=== PATIENT | female | born 1975 | race Caucasian/White ===

== ENCOUNTER 2020-01-30 14:10 | Emergency (ER) | payer OTHER, SELFPAY ==
--- NOTE | ~2020-01-30 | XR_ITS ---
EXAMINATION: XR hip RT min 2V DATE: 01/30/2020 15:15 INDICATION: Right hip pain. TECHNIQUE: 2 views of right hip were obtained. COMPARISON: None. FINDINGS: Bone alignment is normal. No fracture. There is mild right hip osteoarthritis. There is an intrauterine device in expected position. IMPRESSION: 1. Mild right hip osteoarthritis. Reviewed, dictated and finalized at location A.
[2020-01-30 14:24] VITALS: BP 167/108; PULSE 99; RESP 20; TEMP 36.8; O2SAT 100
--- NOTE | 2020-01-30 14:45 | ED.EXTPRO ---
HPI - Extremity Problem General Chief complaint: Extremity Injury, Lower Stated complaint: right side hip pain Time Seen by Provider: 01/30/20 14:12 Source: patient and RN notes reviewed Mode of arrival: ambulatory Limitations: no limitations History of Present Illness HPI Narrative: Patient states she has been having some right hip pain for 5 days. She does not recall any trauma. Hurts when she does range of motion on the lateral greater trochanter and her right groin and right greater ischial tuberosity. She denies any fever chills. She denies any other symptoms. She does not recall any abnormal strain. Complaint: extremity pain Onset (ago): month(s) (1) Pain Consistency: intermittent Location: right and lower extremity (Hip) Quality: aching and dull Radiation: distal Relieving factors: nothing Exacerbating factors: range of motion and walking Associated symptoms: denies other symptoms Related Data Home Medications Medication Instructions Recorded Confirmed levothyroxine 100 mcg PO DAILY 01/30/20 01/30/20 Allergies Allergy/AdvReac Type Severity Reaction Status Date / Time No Known Allergies Allergy Verified 01/30/20 14:33 Review of Systems Review of Systems: All systems reviewed & are unremarkable except as noted in HPI and below PMFSH Past Medical History Medical History (Updated 01/30/20 @ 15:57 by Lenard Lopez MD) Depression Hypothyroid Surgical History Surgical History (Updated 04/06/19 @ 23:14 by Bk Hung) No history of previous surgery Social History Social History (Updated 04/06/19 @ 23:14 by Bk Hung) Smoking status: Current every day smoker Additional smoking assessment comments: Pt smokes less than 1 PPD. Gender identity (if verbalized by the patient): Female Exam Const: General: healthy appearing, no acute distress and alert Nutritional Appearance: well nourished Orientation/consciousness: patient oriented x3 Other: Female nurse in room during examination. HENMT: Head: normal to inspection Ears: external ears normal General nose exam: Normal external nose present Face and sinus: normal facial exam Mouth: Yes lip normal and Yes moist mucous membranes Eyes: Conjunctivae: conjunctivae normal Pupils: Equal, round and reactive pupils present EOM: EOMs intact bilaterally Neck: Neck: normal visual inspection Resp: Effort & Inspection: normal respiratory effort Auscultation: clear to auscultation bilaterally Cardio: Rate: regular rate Rhythm: regular rhythm GI: GI Palp: Yes Soft to palpation and No Tenderness to palpation present (GI) Auscultation: normal bowel sounds Back/Spine/Pelvis: Cervical Spine: cervical ROM normal Thoracic/Lumbar Spine: thoraco-lumbar ROM normal Skin: General skin exam: normal color Rashes: no rashes Neuro: General: oriented to person, oriented to place, oriented to time, moves all extremities, Normal light touch and pain sensation, no focal motor deficits and CN's II-XI intact bilaterally Cranial nerves: Yes Facial sensation intact/muscles of mastication intact, Yes Equal, round and reactive pupils present, Yes Bilaterally intact EOM present, Yes Nystagmus not present, Yes Normal facial strength present, Yes facial symmetry, Yes Midline tongue present, Yes Normal hearing present and Yes Ability to bilaterally elevate shoulders present Speech: normal speech Gait exam (Neuro): Unable to assess gait Motor exam (neuro): 5/5 motor strength present throughout, Pronator motor function not present, Normal motor muscle tone present throughout and Motor abnormalities not present Sensory Exam: normal sensation Coordination: [id number] test normal Pupils: Normal pupillary reactivity/response: bilateral Extrem: General: normal to inspection, no clubbing, cyanosis or edema and no pedal edema Psych: Appearance: grossly normal and well kempt Mental Status: mental status grossly normal Affect: normal affect Attitude: coop
--- NOTE | 2020-01-30 14:50 | PC.NURSE ---
[id number] RN in room with doctor for exam
[2020-01-30 15:14] LABS: Basophils Absolute Auto 0.02 K/mm3 (0.00-0.10); Basophils Percent Auto 0.3 % (0.0-1.0); Eosinophils Absolute Auto 0.12 K/mm3 (0.02-0.50); Eosinophils Percent Auto 1.8 % (1.0-6.0); Hematocrit 40.4 % (35.0-49.0); Hemoglobin 12.8 g/dL (12.0-15.0); Immature Granulocyte Absolute 0.02 K/mm3 (0.00-0.00); Immature Granulocyte Percent A 0.3 % (0.0-0.0); Lymphocytes Absolute Auto 1.52 K/mm3 (1.10-4.50); Lymphocytes Percent Auto 23.2 % (18.0-42.0); Mean Corpuscular HGB Conc 31.7 g/dL (32.0-36.0); Mean Corpuscular Hemoglobin 31.2 pg (27.0-31.0); Mean Corpuscular Volume 98.5 fL (78.0-102.0); Mean Platelet Volume 9.2 fl (9.2-11.8); Monocytes Absolute Auto 0.69 K/mm3 (0.10-0.90); Monocytes Percent Auto 10.6 % (2.0-11.0); Neutrophils Absolute Auto 4.2 K/mm3 (1.7-7.2); Neutrophils Percent Auto 63.8 % (50.0-70.0); Platelet Count Result 356 K/mm3 (150-420); Red Cell Distribution Width 12.2 % (11.6-14.4); White Blood Count 6.5 K/mm3 (4.8-10.8)
[2020-01-30 15:26] LABS: CRP 3.7 mg/dL (0.0-0.9)
[2020-01-30] MEDS: KETOROLAC (*BKC) 60 MG/2 ML VIAL IM (15:57)
[2020-01-30 16:30] VITALS: BP 177/105; PULSE 82; RESP 20; O2SAT 97
== END 2020-01-30 16:31 | disposition home or self-care (01) ==
PROVIDERS: Emergency Provider Emergency Medicine; PCP Family Medicine
DX: M16.7 Other unilateral secondary osteoarthritis of hip (principal)
CPT/HCPCS: 36415; 73502; 85025; 86140; 96372; 99283; J1885

== ENCOUNTER 2020-02-06 20:24 | Emergency (ER) | payer OTHER, SELFPAY ==
[2020-02-06 20:40] VITALS: BP 190/111; PULSE 106; RESP 18; TEMP 36.9; O2SAT 98
--- NOTE | 2020-02-06 21:51 | ED.EYEPROB ---
HPI - Eye Problem General Chief complaint: Eye Problems Stated complaint: eye problems Source: patient Mode of arrival: ambulatory History of Present Illness HPI Narrative: this is a 44-year-old female presents with red itchy eyes bilateral with some redness discharge irritation with itching, started couple of days ago and has intensified, also having rash that is itchy around her forehead and into her neck and lower back area that is some red itchy with no fever chills no shortness of breath no nausea vomiting or abdominal pain. The patient states that she was recently seen at an urgent care and treated with permethrin for with some they thought might have been scabies, and treated the whole family. Does not appear to be scabies, of the area looks red and irritated. Patient also states that she had a dog that was diagnosed with mange and was giving the dog a bath and believes that this may have been the source of her inflammation and source of infected itchy red warm watery eyes. chief complaint: eye pain Onset (ago): day(s) Onset description: gradual Duration: constant Location: both eyes Eye Symptoms: burning, redness, foreign body sensation, itching and discharge Place: home Mechanism: other ( Coming in contact with her dog) Severity: moderate If Pain, Quality: burning Associated symptoms: other ( rash with itching) Treatments Prior to Arrival: none Related Data Home Medications Medication Instructions Recorded Confirmed levothyroxine 100 mcg PO DAILY 01/30/20 02/06/20 Allergies Allergy/AdvReac Type Severity Reaction Status Date / Time No Known Allergies Allergy Verified 01/30/20 14:33 Review of Systems Review of Systems: All systems reviewed & are unremarkable except as noted in HPI and below PMFSH Past Medical History Medical History Depression Hypothyroid Surgical History Surgical History No history of previous surgery Social History Social History Smoking status: Current every day smoker Additional smoking assessment comments: Pt smokes less than 1 PPD. Gender identity (if verbalized by the patient): Female Exam Const: General: healthy appearing and no acute distress Orientation/consciousness: patient oriented x3 HENMT: Head: normal to inspection Eyes: Conjunctivae: conjunctival abnormality ( red irritated with some discharge bilateral) bilateral Pupils: Equal, round and reactive pupils present Neck: Neck: normal visual inspection and no lymphadenopathy Chest: Chest palpation & inspection: normal inspection of the chest Resp: Effort & Inspection: normal respiratory effort Auscultation: clear to auscultation bilaterally Cardio: Rate: regular rate Rhythm: regular rhythm : General: Yes no CVA tenderness Back/Spine/Pelvis: Back: no CVA tenderness Skin: General skin exam: normal color Rashes: no rashes Neuro: General: patient oriented x3 and moves all extremities Extrem: General: normal to inspection and no pedal edema Psych: Appearance: grossly normal Mental Status: mental status grossly normal Affect: normal affect Course Course Emergency Course: patient having what appears to be an allergic reaction with redness erythema and itching and itching eyes with redness, administer a dose of Depo-Medrol and instill in her eyes cord Spore in eyedrops. Critical Care Time Critical Care Time Critical Care Time: No Discharge Plan Discharge Clinical Impression: Bacterial conjunctivitis, Dermatitis Patient Disposition: Home, Self-Care Condition: Stable Instructions: Antibiotic Form, Contact Dermatitis (ED), Conjunctivitis (ED) Additional Instructions: take medicine as prescribed and follow-up on his care physician if symptoms persist or worsen. Prescriptions: New methylprednisolone [Medr
[2020-02-06] MEDS: NEOMYCIN/POLYMYXIN/DEXAMETH OP SUSP 5 ML BTL 1 DROP EACH EYE (22:16)
[2020-02-06] MEDS: methylPREDNISolone ACETATE 40 MG/ML VIAL 80 MG IM (22:16)
[2020-02-06 22:34] VITALS: BP 188/110; PULSE 92
[2020-02-06] MEDS: cloNIDine HCL 0.1 MG TABLET 0.2 MG PO (22:38)
[2020-02-06 23:19] VITALS: BP 166/100; PULSE 82; RESP 20; TEMP 36.6; O2SAT 98
== END 2020-02-06 23:25 | disposition home or self-care (01) ==
PROVIDERS: Emergency Provider Emergency Medicine; PCP Family Medicine
DX: H10.89 Other conjunctivitis (principal); L30.9 Dermatitis, unspecified
CPT/HCPCS: 96372; 99283; A9270; J1030

== ENCOUNTER 2020-10-28 15:21 | Emergency (ER) | payer OTHER, SELFPAY ==
--- NOTE | ~2020-10-28 | XR_ITS ---
EXAMINATION: XR hip RT 2V w AP pelvis DATE: 10/28/2020 16:02 INDICATION: Right hip pain post fall TECHNIQUE: Anteroposterior view of the pelvis and anteroposterior and frog-leg lateral views of the r ight hip were obtained. COMPARISON: 01/30/2020 FINDINGS: Alignment is normal. No fracture. There is patchy sclerosis and lucency at the bilateral femoral head s which is suspicious for osteonecrosis. Mild osteoarthritis at the bilateral hip joints. Bilateral s acroiliac joint spaces are relatively preserved. Multiple phleboliths in the pelvis. IMPRESSION: 1. Patchy sclerosis and lucency at the bilateral femoral heads most suggestive of osteonecrosis. No o ther acute osseous abnormality. Reviewed, dictated and finalized at location A. IMPRESSION: 1. Patchy sclerosis and lucency at the bilateral femoral heads most suggestive of osteonecrosis. No other acute osseous abnormality.
--- NOTE | ~2020-10-28 | CT_ITS ---
EXAMINATION: CT hip RT wo con DATE: 10/28/2020 17:48 INDICATION: Right hip pain TECHNIQUE: High resolution computed tomography (CT) of the right hip was performed without intravenou s contrast. Additional sagittal and coronal reconstructions were performed. Automated exposure contro l and iterative reconstruction technique were employed. The dose-length product was 143.12 mGy-cm. COMPARISON: None FINDINGS: There is increased lucency of the bone at the anterior aspect of the femoral head with serpiginous th in sclerotic margin consistent with osteonecrosis. This involves the majority of the anterior half of the articular surface of the femoral head with likely early fragmentation and subtle collapse of the articular surface of the affected bone. This results in approximately 1-2 mm step-off at the articul ar surface at the apex of the femoral head. There is additional small region of osteonecrosis without collapse along the posterior medial aspect of the articular surface of the femoral head. The right f emoral head remains normally located in the right acetabulum with mild osteoarthritis at the right hi p. Aside from the fragmentation at the right femoral head there are no other fractures identified. Th ere is a large right hip joint effusion. Normal appendix. Visualized portions of the bowels, bladder, anteverted uterus and right adnexa are unremarkable. IMPRESSION: 1. Relatively advanced osteonecrosis of the right femoral head which appears to involve at least half of the articular surface area with early fragmentation and subtle collapse of the anterior articular surface. 2. Mild likely secondary osteoarthritis of the right hip with large likely reactive joint effusion. Reviewed, dictated and finalized at location A. IMPRESSION: 1. Relatively advanced osteonecrosis of the right femoral head which appears to involve at least half of the articular surface area with early fragmentation a nd subtle collapse of the anterior articular surface. 2. Mild likely secondary osteoarthritis of the right hip with large likely reac tive joint effusion.
[2020-10-28 15:19] VITALS: BP 155/95; PULSE 76; RESP 20; TEMP 36.5; O2SAT 99
[2020-10-28 16:37] VITALS: BP 137/96; PULSE 65; RESP 18; O2SAT 99
--- NOTE | 2020-10-28 16:57 | ED.FALL ---
HPI - Fall General Chief Complaint: Fall Stated Complaint: right hip pain post fall Time Seen by Provider: 10/28/20 15:24 History of Present Illness HPI Narrative: Patient is a 45-year-old female who presents ER with right hip pain. Patient was walking her house and tripped over singular step falling onto her right side. Did not strike head or lose consciousness. She had sudden onset pain in her hip. She has been unable to ambulate since then. No numbness or tingling. Related Data Allergies Allergy/AdvReac Type Severity Reaction Status Date / Time No Known Allergies Allergy Verified 10/28/20 15:27 Review of Systems Review of Systems: All systems reviewed & are unremarkable except as noted in HPI and below Constitutional: Constitutional: Denies chills, Denies fever(s) and Denies weakness Musculoskeletal: Musculoskeletal: Reports arthralgias, Denies joint swelling and Denies muscle cramps Neurologic: Denies focal weakness and Denies numbness PMFSH Past Medical History Medical History (Updated 10/28/20 @ 18:24 by Kermit Cole MD) Depression Hypothyroid Surgical History Surgical History No history of previous surgery Social History Social History Smoking status: Current every day smoker Additional smoking assessment comments: Pt smokes less than 1 PPD. Gender identity (if verbalized by the patient): Female Exam Narrative: Exam Narrative: GENERAL: Well-appearing, well-nourished, and in no acute distress. HEAD: Normocephalic, atraumatic. CHEST: Clear to auscultation. No respiratory distress. HEART: Regular rate and rhythm. Normal peripheral pulses. EXTREMITIES: Focused exam of the right lower extremity shows reduced range of motion in the right hip and patient can only keep her leg straight out due to pain. No swelling. No real tenderness to palpation. Neurovascular intact distal to the right hip. Normal exam left lower extremity and bilateral upper extremities. SKIN: Warm, dry, no rash. NEURO: Alert and oriented x3. PSYCH: Normal mood and affect. Course Reevaluation(s) Reevaluation #1: Discussed CT and x-ray results with Dr. Priest. Recommends patient go home and follow-up in office and she can be worked up for potential hip replacement outpatient. Does not feel like the subtle collapse of the femoral head represents acute fracture. He feels patient would benefit from Medrol Dosepak and other pain therapy. Patient will also be given crutches to help with ambulation. Date: 10/28/20 Time: 18:21 Vital Signs Vital signs: Vital Signs Temperature 97.7 F 10/28/20 15:19 Pulse Rate 76 10/28/20 15:19 Respiratory Rate 20 10/28/20 15:19 Blood Pressure 155/95 H 10/28/20 15:19 Pulse Oximetry 99 10/28/20 15:19 Temperature 97.7 F 10/28/20 15:19 Pulse Rate 67 10/28/20 18:35 Respiratory Rate 18 10/28/20 18:35 Blood Pressure 129/90 10/28/20 18:35 Pulse Oximetry 100 10/28/20 18:35 MDM - Fall Imaging Data Radiologist's impression: ITS Impressions Hip/Pelvis X-Ray 10/28/20 16:04 IMPRESSION: 1. Patchy sclerosis and lucency at the bilateral femoral heads most suggestive of osteonecrosis. No other acute osseous abnormality. Hip CT 10/28/20 17:51 IMPRESSION: 1. Relatively advanced osteonecrosis of the right femoral head which appears to involve at least half of the articular surface area with early fragmentation and subtle collapse of the anterior articular surface. 2. Mild likely secondary osteoarthritis of the right hip with large likely reactive joint effusion. Discharge Plan Discharge Clinical Impression: Avascular necrosis of bones of both hips Patient Disposition: Home, Self-Care Condition: Stable Instructions: Hip Pain (ED) Additional Instructions: You have avascular necrosis of both of the femoral heads of you
--- NOTE | 2020-10-28 17:04 | PC.NURSE ---
Attempted to bear weight on right foot, unable to at this time. Dr. Cole notified and new orders received. Updated patient.
[2020-10-28] MEDS: KETOROLAC 30 MG/ML VIAL (*BKC) IV PUSH (18:33)
[2020-10-28 18:35] VITALS: BP 129/90; PULSE 67; RESP 18; O2SAT 100
== END 2020-10-28 18:53 | disposition home or self-care (01) ==
PROVIDERS: Emergency Provider Emergency Medicine; PCP Family Medicine
DX: M87.9 Osteonecrosis, unspecified (principal); E03.9 Hypothyroidism, unspecified; F17.200 Nicotine dependence, unspecified, uncomplicated; F17.210 Nicotine dependence, cigarettes, uncomplicated; W10.9XXA Fall (on) (from) unspecified stairs and steps, initial encounter
CPT/HCPCS: 73502; 73700; 96374; 99284; J1885

== ENCOUNTER 2021-03-02 10:33 | Emergency (ER) | payer OTHER, SELFPAY ==
--- NOTE | ~2021-03-02 | CT_ITS ---
EXAMINATION: CT BRAIN W/O DATE: 03/02/2021 11:32 INDICATION: Headache after injury TECHNIQUE: Computed tomography (CT) of the head was performed without intravenous contrast. The dose- length product was 605.33 mGy-cm. COMPARISON: No prior studies for comparison. FINDINGS: Normal brain parenchymal volume for age. Normal naqvi-white differentiation. No acute intrac ranial hemorrhage, infarction, mass or mass effect. No ventriculomegaly or midline shift. Midline sagittal images demonstrate a normal corpus callosum, c raniovertebral junction and sella turcica. Basilar cisterns are patent. Paranasal sinuses and mastoids are pneumatized. No depressed skull fractures. IMPRESSION: 1. No acute intracranial abnormality. Reviewed, dictated and finalized at location A.
--- NOTE | ~2021-03-02 | XR_ITS ---
XR hip RT min 3V w AP pelvis 03/02/2021 12:52 Indication: Right hip pain after fall Procedure: AP pelvis and 3 views right hip Comparison: 11/26/2020 Findings: There is mixed lysis and sclerosis of the femoral heads, consistent with avascular necrosis with probable subchondral fracture of the right femoral head medially. There is right hip joint spac e narrowing superiorly. Pelvic rings are intact. Sacral foramen are symmetric. Impression: 1: Bilateral avascular necrosis of the femoral heads, right greater than left. Probable associated reed bchondral fracture of the right femoral head. Reviewed, dictated and finalized at location A. Impression: 1: Bilateral avascular necrosis of the femoral heads, right greater than left. Probable associated subchondral fracture of the right femoral head.
--- NOTE | ~2021-03-02 | CT_ITS ---
EXAMINATION: CT facial & cervical spine wo DATE: 03/02/2021 11:32 INDICATION: Head and neck injury post fall TECHNIQUE: Computed tomography (CT) of the maxillofacial region and cervical spine was performed with out intravenous contrast. The dose-length product was 224.70 mGy-cm. Automated exposure control and i terative reconstruction technique were employed. COMPARISON: None FINDINGS: MAXILLOFACIAL CT: No acute facial fracture. No significant soft tissue abnormality. Paranasal sinuses are unremarkable. No orbital fractures. CERVICAL SPINE CT: Straightening of cervical lordosis. Vertebral body heights are maintained. No acute fracture, subluxa tion or dislocation. No evidence for perched facet. Lung apices are normal. No paraspinal soft tissue abnormality. IMPRESSION: 1. No acute abnormality of the facial bones or cervical spine. Reviewed, dictated and finalized at location A.
[2021-03-02 10:31] VITALS: PULSE 98; RESP 18; TEMP 36.8; O2SAT 100
[2021-03-02 10:41] VITALS: BP 158/90
--- NOTE | 2021-03-02 11:18 | ED.WOUNDLAC ---
HPI - Wound/Laceration General Chief Complaint: Wound/Laceration <Amy Cedeño PA-C - Last Filed: 03/02/21 13:53> Stated Complaint: CHIN LAC <TELMA Suarez Last Filed: 03/02/21 13:53> Time Seen by Provider: 03/02/21 10:39 <TELMA Suarez Last Filed: 03/02/21 13:53> Source: patient <TELMA Suarez Last Filed: 03/02/21 13:53> Mode of arrival: EMS <TELMA Suarez Last Filed: 03/02/21 13:53> Limitations: no limitations <TELMA Suarez Last Filed: 03/02/21 13:53> History of Present Illness HPI narrative: This is a 45-year-old female that presents to the emergency department after a ground-level fall today with a laceration to the chin. Reportedly patient was being served a warrant. She tried to run away and tripped and fell. She hit her chin on the floor. Denies any loss of consciousness. Reports a laceration to the chin. She is unsure of her last tetanus vaccination. Also reports some pain in her right hip that does seem to be chronic, but has worsened since the fall. Denies vision changes, vomiting, numbness, or weakness. <Amy Cedeño PA-C - Last Filed: 03/02/21 13:53> Related Data Home Medications: Home Medications Medication Instructions Recorded Confirmed No Home Medications 03/02/21 03/02/21 <TELMA Suarez Last Filed: 03/02/21 13:53> Allergies/Adverse Reactions: Allergies Allergy/AdvReac Type Severity Reaction Status Date / Time No Known Allergies Allergy Unverified 03/02/21 10:35 <TELMA Suarez Last Filed: 03/02/21 13:53> Review of Systems Review of Systems: CONSTITUTIONAL: Denies fever EYES: Denies visual changes GASTROINTESTINAL: Denies vomiting MUSCULOSKELETAL: Reports joint pain and myalgia. Denies back pain NEUROLOGIC: Denies headache, numbness, or weakness. <Amy Cedeño PA-C - Last Filed: 03/02/21 13:53> All systems reviewed & are unremarkable except as noted in HPI and below <Amy Cedeño PA-C - Last Filed: 03/02/21 13:53> PMFSH Past Medical History Medical History: Medical History (Updated 03/02/21 @ 13:46 by Amy Cedeño PA-C) Depression Hypothyroid <Amy Cedeño PA-C - Last Filed: 03/02/21 13:53> Surgical History Surgical History: Surgical History No history of previous surgery <Amy Cedeño PA-C - Last Filed: 03/02/21 13:53> Social History Social History: Social History (Updated 11/26/20 @ 09:40 by Elenita Monahan MA) Smoking status: Current every day smoker Additional smoking assessment comments: Pt smokes less than 1 PPD. Gender identity (if verbalized by the patient): Female <Amy Cedeño PA-C - Last Filed: 03/02/21 13:53> Exam Narrative: GENERAL: Well-appearing, well-nourished, and in no acute distress. HEAD: Normocephalic. 2cm linear laceration into subcutaneous tissue to the chin EYES: PERRLA and EOMI. ENT: Nares clear, no rhinorrhea or epistaxis. Mucous membranes moist. Oropharynx without tonsillar hypertrophy exudate or other lesions. Bilateral TMs pearly naqvi non-bulging NECK: Supple. No adenopathy or masses. CHEST: Clear to auscultation. No respiratory distress. No wheezes rales or rhonchi HEART: Regular rate and rhythm. No murmur heard. Normal peripheral pulses. BACK: No midline thoracic or lumbar spine tenderness EXTREMITIES: Normal range of motion. No edema or obvious deformity. Strength equal in bilateral upper and lower extremities SKIN: Warm, dry, no rash. NEURO: No focal deficits. Alert and oriented x3. Cranial nerves II through XII grossly intact PSYCH: Normal mood and affect <Amy Cedeño PA-C - Last Filed: 03/02/21 13:53> Course COMMUNICATIONS DEPARTMENT CHAIR/PA Physician Supervision I did not see this patient nor was the care plan discussed with me. I was available for evaluation and consultation, I agree with the documentation as above <Jaime
[2021-03-02] MEDS: TETANUS,DIPHTHERIA,AC PERTUSSIS ADULT (0.5 ML) BOOSTRIX IM (11:45)
[2021-03-02] MEDS: KETOROLAC (*BKC) 60 MG/2 ML VIAL IM (14:00)
--- NOTE | 2021-03-02 14:32 | PC.NURSE ---
Attempted to give crutches and training to patient. Refused need for crutches. Denies education. Charge nurse made aware of this. Nothing further to report.
== END 2021-03-02 14:34 ==
PROVIDERS: Emergency Provider Emergency Medicine; PCP Family Medicine
DX: S01.81XA Laceration without foreign body of other part of head, initial encounter (principal); M87.9 Osteonecrosis, unspecified; Z23 Encounter for immunization; E03.9 Hypothyroidism, unspecified; F17.210 Nicotine dependence, cigarettes, uncomplicated; W01.0XXA Fall on same level from slipping, tripping and stumbling without subsequent striking against object, initial encounter
CPT/HCPCS: 12011; 70450; 70486; 72125; 73502; 81025; 90471; 90715; 96372; 99284; J1885

== ENCOUNTER 2021-03-26 11:02 | Outpatient (CLI) | payer OTHER, SELFPAY ==
--- NOTE | ~2021-03-26 | XR_ITS ---
EXAMINATION: XR lg joint inject/asp w image DATE: 03/26/2021 11:50 INDICATION: Right hip arthritis. TECHNIQUE: A time-out was performed to verify the patient's name, date of , and procedure to b e performed. The procedure including the risks, benefits, and alternatives was discussed with the pat ient. Risks discussed included bleeding and infection. The patient understood the risks and agreed to proceed. The skin overlying the right hip joint was prepped and draped in usual sterile fashion. A nesthetic was administered with 1% lidocaine subcutaneously. A 22 G needle was advanced under fluoro scopic guidance into the joint. Injection of 1 mL of Omnipaque 240 confirmed intra-articular positio n of the needle. Subsequently, injectate consisting of 2 mL 0.5% bupivacaine and 1 mL 80 mg/mL Depo- Medrol was instilled. The needle was removed and the entry site was cleaned and dressed. There were no immediate complications. Fluoroscopy exposure time was 0.1 minutes. The total number of images wa s 2. FINDINGS: Real-time fluoroscopy demonstrates the needle in the right hip joint. Patient's pain prior to procedure:11/24. Patient's pain following the procedure: 05/27. IMPRESSION: 1. Fluoroscopy guided right hip joint injection of local anesthetic and steroid with decrease in the patient's presenting pain. Reviewed, dictated and finalized at location A. [employer] [facility]
== END 2021-03-26 11:03 | disposition home or self-care (01) ==
LOC: ANHIMG 11:06
PROVIDERS: PCP Family Medicine; Visit Provider Orthopaedic Surgery
DX: M16.11 Unilateral primary osteoarthritis, right hip (principal)
CPT/HCPCS: 20610; 77002; J1040; Q9966

== ENCOUNTER 2021-07-05 11:53 | Emergency (ER) | payer OTHER, SELFPAY ==
--- NOTE | ~2021-07-05 | XR_ITS ---
XR hip RT min 3V w AP pelvis DATE: 07/05/2021 12:48 INDICATION: Fall. Right hip injury, pain TECHNIQUE: AP pelvis. AP, lateral and crosstable lateral views of right hip COMPARISON: 03/02/2021 AP pelvis with right hip FINDINGS: Again noted is bilateral femoral head avascular necrosis, right considerably more severe th an left. There is secondary right hip osteoarthritis. No pelvic fracture or bone destruction. Normal alignment at the pubic symphysis and sacroiliac joint s. IMPRESSION: Bilateral femoral head avascular necrosis, right greater than left, with secondary right hip osteoarthritis Reviewed, dictated and finalized at location B. AR TRIMMER
[2021-07-05 12:09] VITALS: BP 170/104; PULSE 67; RESP 16; TEMP 36.3; O2SAT 97
[2021-07-05] MEDS: IBUPROFEN 600 MG TABLET PO (12:27)
--- NOTE | 2021-07-05 13:47 | ED.EXTPRO ---
HPI - Extremity Problem General Chief complaint: Extremity Problem,Nontraumatic Stated complaint: right hip pain Time Seen by Provider: 07/05/21 12:11 Source: patient History of Present Illness HPI Narrative: Patient presents with right hip pain. She has known avascular necrosis with definitive surgery scheduled for next month. She came in today for worsening pain she fell a couple days ago on ice landing on her right hip. Attempted manage her symptoms at home however pain increases she came to the ER for evaluation. Pain is achy, constant, radiates down her leg worse with attempting to move her right hip. Shot striking her head any loss of conscious denies any focal numbness or weakness Related Data Home Medications Medication Instructions Recorded Confirmed acetaminophen 500 mg PO Q6H PRN 06/21/21 06/21/21 albuterol sulfate 2 inh INHALATION Q4-6M PRN 06/21/21 06/21/21 fluoxetine 40 mg PO QAM 06/21/21 06/21/21 folic acid 1 mg PO DAILY 06/21/21 06/21/21 hydroxyzine HCl 25 mg PO DAILY 06/21/21 06/21/21 levothyroxine 88 mcg PO QAM 06/21/21 06/21/21 levothyroxine 100 mcg PO QAM 06/21/21 06/21/21 tramadol 50 mg tablet 50 mg PO Q6H PRN 06/27/21 Allergies Allergy/AdvReac Type Severity Reaction Status Date / Time No Known Allergies Allergy Unverified 06/21/21 12:21 Review of Systems Review of Systems: CONSTITUTIONAL: Denies fever, chills, or sweats. EYES: Denies visual changes, redness, or discharge. ENT: Denies rhinorrhea, congestion, sore throat, or otalgia. CARDIOVASCULAR: Denies chest pain, palpitations, or edema. RESPIRATORY: Denies cough or dyspnea. GASTROINTESTINAL: Denies abdominal pain, nausea, vomiting, or diarrhea. GENITOURINARY: Denies dysuria or hematuria. SKIN: Denies rash or itching. MUSCULOSKELETAL: Denies back pain, or myalgia. NEUROLOGIC: Denies headache, numbness, dizziness, or weakness. PSYCHIATRIC: Denies anxiety or depression. All systems reviewed & are unremarkable except as noted in HPI and below PMFSH Past Medical History Medical History (Updated 07/05/21 @ 13:54 by Nick Foote MD) Depression Hypothyroid Surgical History Surgical History No history of previous surgery Social History Social History Smoking packs per day: 1 Smoking cigarettes per day: 20.0 Years smoked: 12 Smoking pack-years: 12.00 Smoking status: Former smoker Tobacco type: cigarettes and e-cigarettes/vaping Additional smoking assessment comments: STOPPED VAPING 06/16/21,STOPPED CIGARETTES 06/16/21(HAD DECREASED TO FEW) Alcohol intake: current Drinks per week: 2 Substance use: former Substance use type: methamphetamine Last use: 2019 Gender identity (if verbalized by the patient): Female Spiritual care concerns: No Exam Narrative: GENERAL: Well-appearing, well-nourished, and in no acute distress. HEAD: Normocephalic, atraumatic. EYES: PERRLA and EOMI. ENT: Nares clear, no rhinorrhea or epistaxis. Mucous membranes moist. NECK: Supple. No masses. No JVD EXTREMITIES: Ecchymosis noted on the posterior aspect of the right hip there is diffuse tenderness to the right hip no obvious deformity no open or draining wounds SKIN: Warm, dry, no rash. NEURO: No focal deficits. Alert and oriented x3. PSYCH: Normal mood and affect. Course Vital Signs Vital signs: Vital Signs Temperature 36.3 C L 07/05/21 12:09 Pulse Rate 67 07/05/21 12:09 Respiratory Rate 16 07/05/21 12:09 Blood Pressure 170/104 H 07/05/21 12:09 Pulse Oximetry 97 07/05/21 12:09 Temperature 36.3 C L 07/05/21 12:09 Pulse Rate 73 07/05/21 14:01 Respiratory Rate 18 07/05/21 14:01 Blood Pressure 170/89 H 07/05/21 14:01 Pulse Oximetry 100 07/05/21 14:01 MDM - Extremity (Nontraumatic) MDM Narrative Medical decision making narrative: H&P as above, vss, pt looks clinically well, exam
[2021-07-05 14:01] VITALS: BP 170/89; PULSE 73; RESP 18; O2SAT 100
== END 2021-07-05 14:04 | disposition home or self-care (01) ==
PROVIDERS: Emergency Provider Emergency Medicine; PCP Family Medicine
DX: M25.551 Pain in right hip (principal); M87.9 Osteonecrosis, unspecified; E03.9 Hypothyroidism, unspecified; F32.A Depression, unspecified; Z87.891 Personal history of nicotine dependence; M16.7 Other unilateral secondary osteoarthritis of hip; W00.0XXA Fall on same level due to ice and snow, initial encounter
CPT/HCPCS: 73502; 99283; A9270

== ENCOUNTER 2021-07-22 08:05 | Outpatient (CLI) | payer OTHER, SELFPAY ==
--- NOTE | 2021-07-22 09:13 | ECG_ITS ---
Measurements Intervals [place] Rate: 61 P: 51 TX: 122 QRS: 68 QRSD: 79 T: 49 QT: 408 QTc: 413 Interpretive Statements SINUS RHYTHM MODERATE T-WAVE ABNORMALITY, CONSIDER ANTERIOR ISCHEMIA [-0.1+ mV T WAVE IN V3/V4] COMPARED TO ECG 10/16/2018 15:48:20 ANTEROSEPTAL T-WAVE INVERSION IS NOW PRESENT Electronically Signed On 07-22-2021 15:42:18 MOLD BURNER by Richard Olivera M.D.
[2021-07-22 09:48] LABS: Basophils Absolute Auto 0.1 K/mm3 (0.0-0.1); Basophils Percent Auto 0.7 % (0.2-1.2); Eosinophils Absolute Auto 0.2 K/mm3 (0-0.3); Eosinophils Percent Auto 2.5 % (0-4.4); Hematocrit 43.7 % (37.0-47.0); Immature Granulocyte Absolute 0.02 K/mm3 (0.00-0.031); Immature Granulocyte Percent A 0.3 % (0-0.5); Lymphocytes Absolute Auto 1.39 K/mm3 (0.9-3.2); Lymphocytes Percent Auto 18.2 % (18.3-44.2); Mean Corpuscular Hemoglobin 31.2 pg (26-34); Mean Corpuscular Volume 97.3 fl (80-100); Mean Platelet Volume 9.4 fl (7.4-10.4); Monocytes Absolute Auto 0.8 K/mm3 (0.1-0.6); Monocytes Percent Auto 10.4 % (2.6-8.5); Neutrophils Absolute Auto 5.2 K/mm3 (1.3-6.7); Neutrophils Percent Auto 67.9 % (45.5-73.1); Platelet Count Result 287 k/mm3 (150-375); Red Blood Count 4.49 M/mm3 (4.2-5.4); Red Cell Distribution Width 14.2 % (11.5-14.5); White Blood Count 7.6 K/mm3 (4.5-10.0)
[2021-07-22 09:53] LABS: Urine Cotinine NEGATIVE
[2021-07-22 09:56] LABS: Add Urine Microscopic? YES; Amorphous Sediment Urine Few; Appearance Urine Cloudy (Clear); Bilirubin Urine Negative (Negative); Blood Urine Negative (Negative); Color Urine Yellow (Yellow); Glucose Urine UA Negative (Negative); Ketones Urine Negative (Negative); Leukocyte Esterase Ur 2+ LEU/UL (Negative); Mucus Urine Rare /lpf; Nitrate Urine Negative (Negative); Protein Urine Negative (Negative); Specific Grav Ur 1.019 (1.001-1.035); Squamous Epithelial Cell Urine Many /hpf (Few); Urobilinogen Urine Negative mg/dL (<2.0); WBC Urine 16-20 /hpf
[2021-07-22 09:57] LABS: INR 0.9; Prothrombin Time 12.1 Seconds (11.1-14.7)
[2021-07-22 09:58] LABS: Partial Thromboplastin Time < 20.0 SECONDS (22.3-36.8)
[2021-07-22 10:11] LABS: Hemoglobin A1C 4.9 % (<5.7)
[2021-07-22 12:55] LABS: Albumin Level 3.9 g/dL (3.5-5.1); Anion Gap 4 mmol/L (8-16); Blood Urea Nitrogen 18 mg/dL (7-17); Calcium 8.9 mg/dL (8.4-10.2); Carbon Dioxide 26 mmol/L (22-30); Chloride 103 mmol/L (98-107); Estimated Glomerular Filt Rate > 60; Glucose 86 mg/dL (65-110); Potassium 5.1 mmol/L (3.4-5.0); Sodium 133 mmol/L (137-145)
== END 2021-07-22 08:06 | disposition home or self-care (01) ==
LOC: ANHSURGERY 08:08
PROVIDERS: PCP Family Medicine; Visit Provider Orthopaedic Surgery
DX: Z01.818 Encounter for other preprocedural examination (principal); M87.059 Idiopathic aseptic necrosis of unspecified femur; R94.31 Abnormal electrocardiogram [ECG] [EKG]
CPT/HCPCS: 80048; 80307; 81001; 82040; 83036; 85025; 85610; 85730; 86850; 86900; 86901; 87081; 87086; 87088; 93005

== ENCOUNTER → 2021-07-27 00:17 | Outpatient (CLI) | payer OTHER, SELFPAY ==
[2021-07-27 12:28] LABS: SARS-CoV-2 RNA PCR Negative
== END ==
PROVIDERS: PCP Family Medicine; Visit Provider Orthopaedic Surgery
DX: Z01.812 Encounter for preprocedural laboratory examination (principal); Z20.822 Contact with and (suspected) exposure to COVID-19
CPT/HCPCS: C9803; U0003; U0005

== ENCOUNTER 2021-07-29 12:29 | Emergency (ER) | payer OTHER, SELFPAY ==
--- NOTE | ~2021-07-29 | XR_ITS ---
[[id number] ] INDICATION: Left lower rib pain TECHNIQUE: Frontal projection of the upper left ribs, frontal projection of the lower left ribs, obli que projection of all the left ribs, frontal inspiratory chest x-ray for interpretation. FINDINGS: There is a possible nondisplaced left eighth rib fracture anteriorly. There are no soft tis susan abnormality seen. The lungs are clear. IMPRESSION: 1: Possible nondisplaced left eighth rib fracture anteriorly. Reviewed, dictated and finalized at location B.
--- NOTE | ~2021-07-29 | CT_ITS ---
EXAMINATION: CT chest abdomen pelvis w con DATE: 07/29/2021 14:35 INDICATION: Left-sided lower anterior rib pain post trauma. TECHNIQUE: Computed tomography (CT) of the chest, abdomen, and pelvis was performed with 100 mL Omnip aque-350 intravenous contrast. Automated exposure control and iterative reconstruction technique were employed. The dose-length product was 501.18 mGy-cm. COMPARISON: None FINDINGS: CHEST CT: Lungs are clear with no pneumonia, pulmonary edema or other pulmonary infiltrates. No pleural effusio n or pneumothorax. Although not performed as a dedicated pulmonary embolism protocol there is relativ samara good contrast opacification of the pulmonary arteries with no evident pulmonary embolism which is considered diagnostic due to at least the segmental pulmonary arteries. Heart size is normal. No per icardial effusion. Thoracic aorta is normal in caliber with no dissection or acute traumatic aortic i njury. No pathologically enlarged thoracic lymphadenopathy. Mild thoracic spondylosis. No acute osseo us abnormality. Specifically no rib fractures identified. ABDOMEN/PELVIS CT: Liver, gallbladder, spleen, pancreas, bilateral adrenal glands and right kidney are normal. Bowels in cluding the appendix are normal. Bladder, anteverted uterus and bilateral adnexa are unremarkable. No free intraperitoneal gas or fluid. No pathologically enlarged abdominal or pelvic lymphadenopathy. E xtensive osteonecrosis at the bilateral femoral heads, advanced on the right where there is collapse of a large portion of the articular cortex. Likely secondary large right hip joint effusion. There are bands of absent parenchymal enhancement at the anterior upper pole and posterior lower pole of the left kidney with appearance and parotid clinical history most consistent with renal laceratio ns which extend to greater than 1 cm of the depth the renal parenchyma. There is a moderate-sized lef t perinephric hematoma which remains confined within the pararenal space. No evident contrast extrava sation. No large geographic regions of ischemic vascular tissue to suggest a significant vascular inj ury. No extravasation of the contrast concentrated excreted urine to suggest associated collecting sy stem injury. Findings would be consistent with a grade 3 AAST renal injury. IMPRESSION: 1. A couple deep left renal lacerations with large perinephric hematoma without active extravasation consistent with a grade [address] Franz discussed these findings with Dr. Gina crews 2:55 PM. Patient was returned to the scanner for delayed imaging which demonstrated no extravasatio n of urinary excreted contrast to suggest a collecting system injury. 2. No rib fracture or acute cardiopulmonary disease. 3. Extensive osteonecrosis at the bilateral femoral heads, advanced on the right with collapse of a l arge portion of the articular surface and large right hip joint effusion. Reviewed, dictated and finalized at location A. IMPRESSION: 1. A couple deep left renal lacerations with large perinephric hematoma without active extravasation consistent with a grade [address] Franz discussed these findings with Dr. Fuentes at 2:55 PM. Patient was returned to the scanner for delayed imaging which demonstrated no extravasation of urinary excreted contrast to suggest a collecting system injury. 2. No rib fracture or acute cardiopulmonary disease. 3. Extensive osteonecrosis at the bilateral femoral heads, advanced on the righ t with collapse of a large portion of the articular surface and large right hip joint effusion.
[2021-07-29 12:33] VITALS: BP 141/106; PULSE 90; RESP 18; TEMP 36.6; O2SAT 98
--- NOTE | 2021-07-29 13:39 | ECG_ITS ---
Measurements Intervals [place] Rate: 78 P: 23 [place]: 121 QRS: 58 QRSD: 84 T: 43 QT: 385 QTc: 440 Interpretive Statements SINUS RHYTHM MINIMAL VOLTAGE CRITERIA FOR LVH, CONSIDER NORMAL VARIANT [MEETS CRITERIA IN ONE OF: R(aVL), S(V1), R(V5), R(V5/V6)+S(V1)] COMPARED TO ECG 07/22/2021 09:33:56 NO SIGNIFICANT CHANGES Electronically Signed On 07-30-2021 11:44:24 CDT by Mariana Sorto M.D.
[2021-07-29 14:07] LABS: Basophils Percent Auto 0.2 % (0.2-1.2); Eosinophils Percent Auto 0.3 % (0-4.4); Hematocrit 40.2 % (37.0-47.0); Hemoglobin 13.4 g/dL (12.0-15.0); Immature Granulocyte Absolute 0.02 K/mm3 (0.00-0.031); Immature Granulocyte Percent A 0.2 % (0-0.5); Lymphocytes Absolute Auto 1.51 K/mm3 (0.9-3.2); Lymphocytes Percent Auto 16.6 % (18.3-44.2); Mean Corpuscular HGB Conc 33.3 g/dl (32-36); Mean Corpuscular Hemoglobin 31.6 pg (26-34); Mean Corpuscular Volume 94.8 fl (80-100); Mean Platelet Volume 9.2 fl (7.4-10.4); Monocytes Absolute Auto 1.1 K/mm3 (0.1-0.6); Monocytes Percent Auto 12.3 % (2.6-8.5); Neutrophils Absolute Auto 6.4 K/mm3 (1.3-6.7); Neutrophils Percent Auto 70.4 % (45.5-73.1); Platelet Count Result 267 k/mm3 (150-375); Red Blood Count 4.24 M/mm3 (4.2-5.4); Red Cell Distribution Width 14.4 % (11.5-14.5); White Blood Count 9.1 K/mm3 (4.5-10.0)
[2021-07-29 14:22] LABS: Alanine Aminotransferase 20 U/L (4-35); Albumin Level 4.1 g/dL (3.5-5.1); Alkaline Phosphatase 74 U/L (38-126); Anion Gap 7 mmol/L (8-16); Aspartate Amino Transferase 33 U/L (14-36); Bilirubin,Total 0.5 mg/dL (0.2-1.3); Blood Urea Nitrogen 15 mg/dL (7-17); Calcium 8.2 mg/dL (8.4-10.2); Carbon Dioxide 23 mmol/L (22-30); Chloride 106 mmol/L (98-107); Estimated CRCL calculation 84 ml/min; Estimated Glomerular Filt Rate > 60; Glucose 89 mg/dL (65-110); Potassium 4.1 mmol/L (3.4-5.0); Sodium 136 mmol/L (137-145)
[2021-07-29 14:23] LABS: Add Urine Microscopic? YES; Appearance Urine Cloudy (Clear); Bilirubin Urine Negative (Negative); Blood Urine 3+ (Negative); Color Urine Yellow (Yellow); Glucose Urine UA Negative (Negative); Ketones Urine Negative (Negative); Leukocyte Esterase Ur Negative LEU/UL (Negative); Mucus Urine Rare /lpf; Nitrate Urine Negative (Negative); Protein Urine 1+ mg/dL (Negative); RBC Urine >75 /hpf (0-2); Specific Grav Ur 1.017 (1.001-1.035); Squamous Epithelial Cell Urine Few /hpf (Few)
--- NOTE | 2021-07-29 14:53 | ED.ABDPAIN ---
HPI - Abdominal Pain General Chief Complaint: Abdominal Pain <Shilpa Segura APRN - Last Filed: 07/29/21 18:43> Stated Complaint: L side and rib pain <Shilpa Segura APRN - Last Filed: 07/29/21 18:43> Time Seen by Provider: 07/29/21 12:57 <Shilpa Segura APRN - Last Filed: 07/29/21 18:43> Source: patient <Shilpa Segura APRN - Last Filed: 07/29/21 18:43> Mode of arrival: ambulatory <Shilpa Segura APRN - Last Filed: 07/29/21 18:43> Limitations: no limitations <Shilpa Segura APRN - Last Filed: 07/29/21 18:43> History of Present Illness HPI narrative: 45-year-old patient comes in today with complaints of left rib pain. Patient states she woke up with the pain this morning. Patient states she had a very stressful day yesterday, had two beers, does not remember the night. Patient denies any other injuries. Patient asked if she can remember anything from last night, says yes, but will not elaborate. Patient A&O x4. No Neuro defeicits noted. <Shilpa Segura APRN - Last Filed: 07/29/21 18:43> Related Data Home Medications: Home Medications Medication Instructions Recorded Confirmed acetaminophen 1,000 mg PO Q6H PRN 06/21/21 07/22/21 albuterol sulfate 2 inh INHALATION Q4-6M PRN 06/21/21 07/22/21 fluoxetine 40 mg PO QAM 06/21/21 07/22/21 folic acid 1 mg PO DAILY 06/21/21 07/22/21 levothyroxine 88 mcg PO QAM 06/21/21 07/22/21 levothyroxine 100 mcg PO QAM 06/21/21 07/22/21 <Shilpa Segura APRN - Last Filed: 07/29/21 18:43> Allergies/Adverse Reactions: Allergies Allergy/AdvReac Type Severity Reaction Status Date / Time No Known Allergies Allergy Verified 07/29/21 12:49 <Shilpa Segura APRN - Last Filed: 07/29/21 18:43> Review of Systems Review of Systems: CONSTITUTIONAL: Denies fever, chills, or sweats. EYES: Denies visual changes, redness, or discharge. ENT: Denies rhinorrhea, congestion, sore throat, or otalgia. CARDIOVASCULAR: Denies chest pain, palpitations, or edema. RESPIRATORY: Left chest pain. Denies cough or dyspnea. GASTROINTESTINAL: Left-sided abdominal pain. Denies abdominal pain, nausea, vomiting, or diarrhea. GENITOURINARY: Denies dysuria or hematuria. SKIN: Denies rash or itching. MUSCULOSKELETAL: Denies back pain, joint pain, or myalgia. NEUROLOGIC: Denies headache, numbness, dizziness, or weakness. PSYCHIATRIC: Denies anxiety or depression. <Shilpa Segura APRN - Last Filed: 07/29/21 18:43> PMFSH Past Medical History Medical History: Medical History (Updated 07/29/21 @ 15:34 by Shilpa Segura APRN) Depression Hypothyroid <Shilpa Segura APRN - Last Filed: 07/29/21 18:43> Surgical History Surgical History: Surgical History No history of previous surgery <Shilpa Segura APRN - Last Filed: 07/29/21 18:43> Social History Social History: Social History Smoking packs per day: 1 Smoking cigarettes per day: 20.0 Years smoked: 12 Smoking pack-years: 12.00 Smoking status: Former smoker Tobacco type: cigarettes and e-cigarettes/vaping Smoking end date: 07/05/21 Additional smoking assessment comments: STATES STOPPED SMOKING/VAPING ~07/05/21 Alcohol intake: current Drinks per week: 2 Alcohol use details: STATES STOPPED DRINKING ~07/05/21 Substance use: former Substance use type: methamphetamine Other substance usage details: 2019 RELAPSE Last use: 2019? Gender identity (if verbalized by the patient): Female Spiritual care concerns: No <Shilpa Segura APRN - Last Filed: 07/29/21 18:43> Exam Narrative: GENERAL: Well-appearing, well-nourished, and in no acute distress. HEAD: Normocephalic, atraumatic. EYES: PERRLA and EOMI. ENT: Nares clear, no rhinorrhea or epistaxis. Mucous membranes moist. Oropharynx without tonsillar hypertrophy exudate or other lesions. Bilateral
--- NOTE | 2021-07-29 16:24 | PC.NURSE ---
made contact with [facility] to transfer pt to [facility]. eta [id number]
[2021-07-29] MEDS: fentaNYL CITRATE INJ (*CRX) 100 MCG/2 ML VIAL 50 MCG IV PUSH (17:27)
[2021-07-29 17:32] VITALS: BP 159/95; PULSE 101; RESP 16; TEMP 36.3; O2SAT 100
== END 2021-07-29 17:35 | disposition short-term general hospital (02) ==
PROVIDERS: Emergency Provider Nurse Practitioner Family; PCP Family Medicine
DX: S37.012A Minor contusion of left kidney, initial encounter (principal); S37.032A Laceration of left kidney, unspecified degree, initial encounter; E03.9 Hypothyroidism, unspecified; F32.A Depression, unspecified; Z87.891 Personal history of nicotine dependence; R93.7 Abnormal findings on diagnostic imaging of other parts of musculoskeletal system; X58.XXXA Exposure to other specified factors, initial encounter
CPT/HCPCS: 36415; 71101; 71260; 74177; 80053; 81001; 85025; 93005; 96374; 99285; J3010; Q9967

== ENCOUNTER 2021-11-25 16:23 | Inpatient (IN) | payer OTHER, SELFPAY ==
[2021-11-25] VITALS (33 sets, daily range): BP systolic 163–202; BP diastolic 89–123; PULSE 82–104; RESP 10–24; TEMP 36.9; O2SAT 98–100
--- NOTE | ~2021-11-25 | XR_ITS ---
XR chest 2V DATE: 11/25/2021 18:01 INDICATION: Lightheadedness TECHNIQUE: AP and lateral views COMPARISON: 07/29/2021 CT chest abdomen pelvis 10/25/2018 PA and lateral chest FINDINGS: Normal heart size. No hilar or mediastinal enlargement. No pulmonary infiltrate or consolid ation, pleural effusion or pulmonary vascular congestion or pneumothorax. IMPRESSION: No active cardiopulmonary disease Reviewed, dictated and finalized at location A.
--- NOTE | ~2021-11-25 | CT_ITS ---
EXAMINATION: CT BRAIN W/O DATE: 11/25/2021 18:13 INDICATION: Status post fall and dizziness TECHNIQUE: Computed tomography (CT) of the head was performed without intravenous contrast. The dose- length product was 605.33 mGy-cm. Automated exposure control and iterative reconstruction technique w ere employed. COMPARISON: CT dated 03/02/2021 FINDINGS: Normal brain parenchymal volume for age. Normal naqvi-white differentiation. No acute intrac ranial hemorrhage, infarction, mass or mass effect. No ventriculomegaly or midline shift. Midline sagittal images demonstrate a normal corpus callosum, c raniovertebral junction and sella turcica. Basilar cisterns are patent. Paranasal sinuses and mastoids are pneumatized. No depressed skull fractures. IMPRESSION: 1. No acute intracranial abnormality. Reviewed, dictated and finalized at location A.
--- NOTE | ~2021-11-25 | XR_ITS ---
XR hip RT 2V w AP pelvis DATE: 11/25/2021 18:02 INDICATION: Right hip pain following a fall TECHNIQUE: AP pelvis. AP and lateral views of right hip COMPARISON: 07/29/2021 CT chest abdomen pelvis FINDINGS: There is bilateral femoral head avascular necrosis, more severe on the right, with prominen t patchy sclerosis and lucency and flattening and deformity of the head. There is secondary moderatel y severe osteoarthritis of the right hip. No recent right hip fracture or any evidence of pelvic fracture is noted. The pubic symphysis and sac ral iliac joints are intact. IMPRESSION: Bilateral femoral head avascular necrosis, more severe on the right, with secondary moder ately severe right hip osteoarthritis Reviewed, dictated and finalized at location A. IMPRESSION: Bilateral femoral head avascular necrosis, more severe on the right , with secondary moderately severe right hip osteoarthritis
[2021-11-25 16:40] LABS: Glucose Point of Care 132 mg/dl (65-105)
--- NOTE | 2021-11-25 17:33 | ED.GENADULT ---
HPI - General Adult General Chief complaint: Unspecified <Amy Cedeño PA-C - Last Filed: 11/25/21 21:21> Stated complaint: INGESTED UNKNOWN SUBSTANCE AND GLUCOSE ISSUES <TELMA Suarez Last Filed: 11/25/21 21:21> Time Seen by Provider: 11/25/21 17:13 <Amy Cedeño PA-C - Last Filed: 11/25/21 21:21> Source: patient <TELMA Suarez Last Filed: 11/25/21 21:21> Mode of arrival: EMS <TELMA Suarez Last Filed: 11/25/21 21:21> Limitations: other (Poor historian) <Amy Cedeño PA-C - Last Filed: 11/25/21 21:21> History of Present Illness HPI narrative: This is a 46-year-old female that presents to the emergency department for right hip pain. Reports history of chronic hip pain due to avascular necrosis of the hip. She was scheduled for surgery with Dr. Meek, but her surgery was canceled. Reports today she tripped and fell onto the right hip worsening her pain. She was brought to the emergency department in PD custody to be evaluated for her hip pain. She also reports some lightheadedness. Denies fever, chest pain, shortness of breath, vomiting, numbness, or weakness. <Amy Cedeño PA-C - Last Filed: 11/25/21 21:21> Related Data Home medications: Home Medications Medication Instructions Recorded Confirmed acetaminophen 500 mg tablet 1,000 mg PO Q6H PRN Pain 06/21/21 07/22/21 albuterol sulfate 90 mcg/actuation 2 inh inhalation Q4-6M PRN Dyspnea 06/21/21 07/22/21 aerosol inhaler fluoxetine 40 mg capsule 40 mg PO QAM 06/21/21 07/22/21 folic acid 1 mg tablet 1 mg PO DAILY 06/21/21 07/22/21 levothyroxine 100 mcg tablet 100 mcg PO QAM 06/21/21 07/22/21 levothyroxine 88 mcg tablet 88 mcg PO QAM 06/21/21 07/22/21 <TELMA Suarez Last Filed: 11/25/21 21:21> Allergies/adverse reactions: Allergies Allergy/AdvReac Type Severity Reaction Status Date / Time No Known Allergies Allergy Verified 11/25/21 16:32 <Amy Cedeño PA-C - Last Filed: 11/25/21 21:21> Review of Systems Review of Systems: CONSTITUTIONAL: Denies fever CARDIOVASCULAR: Denies chest pain RESPIRATORY: Denies dyspnea. GASTROINTESTINAL: Denies vomiting MUSCULOSKELETAL: Reports joint pain, and myalgia. NEUROLOGIC: Denies numbness, or weakness. <Amy Cedeño PA-C - Last Filed: 11/25/21 21:21> All systems reviewed & are unremarkable except as noted in HPI and below <Amy Cedeño PA-C - Last Filed: 11/25/21 21:21> [facility] Past Medical History Medical History: Medical History (Updated 11/25/21 @ 21:01 by Amy Cedeño PA-C) Depression Hypothyroid <Amy Cedeño PA-C - Last Filed: 11/25/21 21:21> Surgical History Surgical History: Surgical History No history of previous surgery <Amy Cedeño PA-C - Last Filed: 11/25/21 21:21> Family History Family History: Family History (Updated 11/25/21 @ 20:47 by TISH Cordova) Other Unknown family medical history <Amy Cedeño PA-C - Last Filed: 11/25/21 21:21> Social History Social History: Social History (Updated 11/25/21 @ 20:48 by TISH Cordova) Social History: Patient unwilling to provide many details of her social history. She does wish to be a full code, and she stated that she drinks 2oz of liquor per day. Smoking packs per day: 1 Smoking cigarettes per day: 20.0 Years smoked: 12 Smoking pack-years: 12.00 Smoking status: Former smoker Tobacco type: cigarettes and e-cigarettes/vaping Smoking end date: 07/05/21 Additional smoking assessment comments: STATES STOPPED SMOKING/VAPING ~07/05/21 Alcohol intake: current Drinks per week: 7 Substance use: current Substance use type: methamphetamine Living arrangements: other Occupation/Education: unemployed Gender identity (if verbalized by the patient): Female Sexual Orientation (if Verbalized by t
[2021-11-25 17:45] LABS: Appearance Urine Cloudy (Clear); Bilirubin Urine 2+ (Negative); Color Urine Yellow (Yellow); Glucose Urine UA Negative (Negative); Ketones Urine Trace mg/dL (Negative); Leukocyte Esterase Ur Trace LEU/UL (Negative); Nitrate Urine Negative (Negative); Protein Urine 1+ mg/dL (Negative); Specific Grav Ur >= 1.030 (1.001-1.035); pH Urine 5.5 (5.0-9.0)
[2021-11-25] MEDS: SODIUM CHLORIDE 0.9% IV 1,000 ML 999 ML IV CONT ×2 (17:50→20:19)
[2021-11-25 17:58] LABS: Basophils Percent Auto 0.3 % (0.2-1.2); Eosinophils Percent Auto 0.3 % (0-4.4); Hematocrit 48.5 % (37.0-47.0); Hemoglobin 15.5 g/dL (12.0-15.0); Immature Granulocyte Absolute 0.01 K/mm3 (0.00-0.031); Immature Granulocyte Percent A 0.1 % (0-0.5); Lymphocytes Absolute Auto 0.95 K/mm3 (0.9-3.2); Mean Corpuscular Hemoglobin 30.1 pg (26-34); Mean Corpuscular Volume 94.2 fl (80-100); Mean Platelet Volume 9.2 fl (7.4-10.4); Monocytes Absolute Auto 0.6 K/mm3 (0.1-0.6); Monocytes Percent Auto 6.6 % (2.6-8.5); Neutrophils Absolute Auto 7.9 K/mm3 (1.3-6.7); Neutrophils Percent Auto 82.7 % (45.5-73.1); Platelet Count Result 356 k/mm3 (150-375); Red Blood Count 5.15 M/mm3 (4.2-5.4); Red Cell Distribution Width 13.5 % (11.5-14.5); White Blood Count 9.5 K/mm3 (4.5-10.0)
[2021-11-25 18:06] LABS: Bacteria Urine Trace /hpf; Calcium Oxalate Crystals Urine Present /hpf; Mucus Urine Heavy /lpf; RBC Urine 21-50 /hpf (0-2); Squamous Epithelial Cell Urine Many /hpf (Few); WBC Urine 16-20 /hpf
[2021-11-25 18:07] LABS: Add Urine Microscopic? YES; Blood Urine Trace-Intact (Negative)
[2021-11-25 18:18] LABS: Acetaminophen < 10 ug/mL (10-30); Ethanol < 10 mg/dL (<10); Salicylate < 1.0 mg/dL (2-20)
[2021-11-25 18:19] LABS: Alanine Aminotransferase 24 U/L (6-35); Albumin Level 4.4 g/dL (3.5-5.1); Alkaline Phosphatase 102 U/L (38-126); Anion Gap 8 mmol/L (8-16); Aspartate Amino Transferase 29 U/L (14-36); Bilirubin,Total 0.3 mg/dL (0.2-1.3); Blood Urea Nitrogen 18 mg/dL (7-17); Calcium 9.2 mg/dL (8.4-10.2); Carbon Dioxide 26 mmol/L (22-30); Chloride 105 mmol/L (98-107); Estimated CRCL calculation 44 ml/min; Estimated Glomerular Filt Rate 49; Glucose 93 mg/dL (65-110); Potassium 3.9 mmol/L (3.4-5.0); Sodium 139 mmol/L (137-145)
[2021-11-25 18:27] LABS: Barbiturate Screen Urine Negative (Negative); Benzodiazepines Screen Urine Negative (Negative)
[2021-11-25 18:33] LABS: Cannabinoid Screen Urine Negative (Negative); Cocaine Screen Urine Negative (Negative); Methadone Screen Urine Negative (Negative); Opiate Screen Urine Negative (Negative); Phencyclidine Screen Urine Negative (Negative)
[2021-11-25 19:04] LABS: Amphetamine Screen Urine Positive (Negative)
[2021-11-25 19:36] LABS: Creatine Kinase 73 U/L (30-135)
[2021-11-25] MEDS: SODIUM CHLORIDE 0.9% IV 1,000 ML 125 ML IV CONT (20:19)
--- NOTE | 2021-11-25 20:30 | PM.IMHP ---
H&P: HPI History of Present Illness Date/Time: 11/25/21 20:30 Chief Complaint: Fall and right hip pain Narrative: Patient is a 46-year-old female with a past medical history of hypertension, hypothyroidism, drug abuse who presents to the ED after experiencing a fall on concrete. Evidently the patient was shoplifting at a local [facility] and when she was being chased after she fell in the parking lot so that she could be brought to the hospital. She does complain of right hip pain however upon interviewing she was on her right hip lying there trying to sleep. She has a very poor historian she states that she needs a right hip replacement however it was canceled at some point. She denies taking her medications the way she should and does not remember the last time she had her medications. She has said that she has been having some nausea, vomiting some shortness of breath and cough however gives no details about length of time or if she has tried to do anything with that. Blood pressure is elevated 189/108. Patient does say that she dabbles into a few illicit drugs. She seems to be in no distress, and she also appears to be coming down from something. She is really very hard to hear, and she also is unable to really answer any questions at this point. BUN/Cr are slightly elevated. BP is high at 189/108. Patient will be rehydrated over night and will see if she improves enough to be discharged. She is being admitted in observation Review of Systems Review of Systems: All systems reviewed & are unremarkable except as noted in HPI and below PMFSH Past Medical History Medical History (Updated 11/25/21 @ 21:01 by Amy Cedeño PA-C) Depression Hypothyroid Surgical History Surgical History No history of previous surgery Family History Family History (Updated 11/25/21 @ 20:47 by TISH Cordova) Other Unknown family medical history Social History Social History (Updated 11/25/21 @ 20:48 by TISH Cordova) Social History: Patient unwilling to provide many details of her social history. She does wish to be a full code, and she stated that she drinks 2oz of liquor per day. Smoking packs per day: 1 Smoking cigarettes per day: 20.0 Years smoked: 12 Smoking pack-years: 12.00 Smoking status: Former smoker Tobacco type: cigarettes and e-cigarettes/vaping Smoking end date: 07/05/21 Additional smoking assessment comments: STATES STOPPED SMOKING/VAPING ~07/05/21 Alcohol intake: current Drinks per week: 7 Substance use: current Substance use type: methamphetamine Living arrangements: other Occupation/Education: unemployed Gender identity (if verbalized by the patient): Female Sexual Orientation (if Verbalized by the Patient): Straight or Heterosexual Spiritual care concerns: No Agree to blood products: Yes Meds Home Medications and Allergies Home Medications Medication Instructions Recorded Confirmed Type acetaminophen 500 mg tablet 1,000 mg PO Q6H PRN Pain 06/21/21 07/22/21 History albuterol sulfate 90 mcg/actuation 2 inh inhalation Q4-6M PRN Dyspnea 06/21/21 07/22/21 History aerosol inhaler fluoxetine 40 mg capsule 40 mg PO QAM 06/21/21 07/22/21 History folic acid 1 mg tablet 1 mg PO DAILY 06/21/21 07/22/21 History levothyroxine 100 mcg tablet 100 mcg PO QAM 06/21/21 07/22/21 History levothyroxine 88 mcg tablet 88 mcg PO QAM 06/21/21 07/22/21 History chlorhexidine gluconate 4 % 1 applic topical ONCE #237 mL 06/26/21 07/22/21 Rx topical liquid (Hibiclens) acetaminophen 300 mg-codeine 15 mg 1 tablet PO TID PRN pain #14 tabs 07/05/21 07/22/21 Rx tablet Allergies Allergy/AdvReac Type Severity Reaction Status Date / Time No Known Allergies Allergy Verified 11/25/21 16:32 Vital Signs Vital Signs - 24 hr 11/25/21 16:25 11/25/21 16:33 11/25/21 16:43 Temperature 98.5 F Pulse Rate 10
[2021-11-25 21:09] LABS: SARS-CoV-2 RNA PCR Negative
[2021-11-25 22:06] LABS: Free T4 Free Thyroxine Reflex 1.01 ng/dL (0.78-2.19)
[2021-11-25] MEDS: hydrALAZINE HCL 20 MG/ML VIAL 10 MG IV PUSH (22:52)
[2021-11-25] MEDS: HYDROcodone/acetaminophen (*CRX) 5-325 MG TABLET 1 TAB PO (22:53)
[2021-11-25 23:07] LABS: Total Triiodothyronine (T3) 1.17 NG/ML (0.97-1.69)
[2021-11-25] MEDS: lisinopriL 10 MG TABLET PO (23:09)
--- NOTE | 2021-11-25 23:31 | ADMGEN ---
This patient, Lizbet Camp, was admitted to [facility] Room 311-01. Patient/family oriented to hospital policies and general routines including ID bracelet, bed and alarms, visiting hours, pain management, procedures, bathroom and other care routines, personal items, smoking policy, room service/diet, and visiting hours. Information on how to activate the Rapid Response Team has been discussed. Patient/Family are encouraged to report perceived risks to care and to ask questions if they do not understand what they are told or what they should do.
[2021-11-26] MEDS: SODIUM CHLORIDE 0.9% IV 1,000 ML 125 ML IV CONT (04:54)
[2021-11-26 06:00] VITALS: BP 146/86; PULSE 72; RESP 16; TEMP 36.3; O2SAT 100
[2021-11-26] MEDS: ACETAMINOPHEN 325 MG TABLET 650 MG PO (06:06)
[2021-11-26 06:25] LABS: Basophils Percent Auto 0.5 % (0.2-1.2); Eosinophils Absolute Auto 0.1 K/mm3 (0-0.3); Eosinophils Percent Auto 1.4 % (0-4.4); Hematocrit 41.2 % (37.0-47.0); Hemoglobin 13.3 g/dL (12.0-15.0); Immature Granulocyte Absolute 0.01 K/mm3 (0.00-0.031); Immature Granulocyte Percent A 0.2 % (0-0.5); Lymphocytes Absolute Auto 1.59 K/mm3 (0.9-3.2); Lymphocytes Percent Auto 28.6 % (18.3-44.2); Mean Corpuscular HGB Conc 32.3 g/dl (32-36); Mean Corpuscular Hemoglobin 30.2 pg (26-34); Mean Corpuscular Volume 93.4 fl (80-100); Mean Platelet Volume 9.3 fl (7.4-10.4); Monocytes Absolute Auto 0.6 K/mm3 (0.1-0.6); Monocytes Percent Auto 11.5 % (2.6-8.5); Neutrophils Absolute Auto 3.2 K/mm3 (1.3-6.7); Neutrophils Percent Auto 57.8 % (45.5-73.1); Platelet Count Result 321 k/mm3 (150-375); Red Blood Count 4.41 M/mm3 (4.2-5.4); Red Cell Distribution Width 13.6 % (11.5-14.5); White Blood Count 5.6 K/mm3 (4.5-10.0)
[2021-11-26 06:40] LABS: Alanine Aminotransferase 16 U/L (6-35); Albumin Level 3.2 g/dL (3.5-5.1); Alkaline Phosphatase 81 U/L (38-126); Anion Gap 4 mmol/L (8-16); Aspartate Amino Transferase 24 U/L (14-36); Bilirubin,Total 0.3 mg/dL (0.2-1.3); Blood Urea Nitrogen 10 mg/dL (7-17); Calcium 7.6 mg/dL (8.4-10.2); Carbon Dioxide 23 mmol/L (22-30); Chloride 110 mmol/L (98-107); Estimated CRCL calculation 83 ml/min; Estimated Glomerular Filt Rate > 60; Glucose 78 mg/dL (65-110); Sodium 137 mmol/L (137-145)
[2021-11-26 07:55] LABS: Potassium 3.4 mmol/L (3.4-5.0)
[2021-11-26] MEDS: ENOXAPARIN 40 MG/0.4 ML SYRINGE SUB-Q (08:38)
[2021-11-26] MEDS: DOCUSATE SODIUM 100 MG CAPSULE PO (08:38)
[2021-11-26] MEDS: lisinopriL 10 MG TABLET PO (08:38)
[2021-11-26] MEDS: HYDROcodone/acetaminophen (*CRX) 5-325 MG TABLET 1 TAB PO (08:44)
--- NOTE | 2021-11-26 08:44 | PM.DS ---
DS: Admitting Diagnosis Discharge Date 11/26/2021 1600 Patient reports a headache today and some right hip achiness. She denies painful urination, increased frequency or urgenc, but rather, states she probably needs to drink more water at baseline. She denies chest pain, shortness of breath. She confirmed she does follow with Dr. Forte, orthopedics and will follow up with him outpatient. Admitting Diagnosis Fall DS: Discharge Diagnosis Discharge Diagnosis (1) AVN (avascular necrosis of bone): Code(s): M87.00 - Idiopathic aseptic necrosis of unspecified bone Status: Acute Assessment and Plan: Known history, follows with Dr. Meek and needs hip replacement. 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 Current Cr 0.6, BUN 10. Patient has normalized after IV fluids. Urine culture is pending. Holding off on ABX as sample does appear to be contaminated with numerous epithelial cells, negative nitrates or bacteria. Will discharge patient with follow-up on urine culture as outpatient. Can initiate antibiotics if culture shows infection, which I do not suspect at this time given lack of LUTS and apparently contaminated urine. (3) Hypertension: Code(s): I10 - Essential (primary) hypertension Status: Acute Assessment and Plan: BP is 133/91 IV hydralazine given upon admission. Started lisinopril 10mg PO daily, will discharge on this medication with repeat renal functions at primary care in 1 month. (4) Hypothyroid: Code(s): E03.9 - Hypothyroidism, unspecified Status: Acute Assessment and Plan: TSH elevated at 8.23, but T4 and T3 are normal. Subclinical at this point, will continue medications as currently prescribed with follow up at primary care. DS: Summary Hospital Course Reason for hospitalization: PURVI Hospital Course: See above for full hospital course Status at Discharge Functional status at discharge: independent ambulation Overall status at discharge: patient is progressing back to baseline Time Spent with Patient Time attestation: Total time spent providing and/or coordinating discharge services: 35 minutes Exam Const: General: cooperative, healthy appearing, no acute distress, well developed, alert and awake Nutritional Appearance: well nourished Orientation/consciousness: patient oriented x3 Limitations: no limitations HENMT: Head: normal to inspection Ears: hearing grossly normal bilaterally General nose exam: Normal external nose present Mouth: Yes Normal oral and palatal mucosa present, Yes lip normal and Yes tongue normal Teeth and gingiva: abnormal tooth and associated gingiva and poor dentition Eyes: General: appearance normal, both eyes and all related structures Neck: Neck: normal visual inspection, full ROM, trachea midline and supple Chest: Chest palpation & inspection: normal inspection of the chest Resp: Effort & Inspection: normal respiratory effort and able to speak in complete sentences Auscultation: clear to auscultation bilaterally Cardio: Jugular venous distension: no JVD Rate: regular rate Rhythm: regular rhythm Heart sounds: S1 normal heart sound present and S2 normal heart sound present Peripheral pulses: Peripheral pulses 2+ throughout GI: Inspection: normal to inspection Auscultation: normal bowel sounds Skin: General skin exam: normal color and no rashes or lesions noted Lesions: no lesions Rashes: no rashes Trauma: no lacerations or abrasions Wounds: wounds noted (bilateral lower extremities multiple areas of scabs) Hair: normal Nails: normal Neuro: General: patient orie
[2021-11-26 14:00] VITALS: BP 133/91; PULSE 71; RESP 16; TEMP 36.6; O2SAT 99
--- NOTE | 2021-11-27 07:11 | PC.NURSE ---
urine cx shows genital keven.
== END 2021-11-26 16:45 | disposition home or self-care (01) | DRG 351 ==
LOC: ANHED 21:17 → ANH3MEDSUR 21:37
PROVIDERS: Nurse Practitioner; Physician Assistant; Admitting Provider Student in an Organized Health Care Education/Training Program; Emergency Provider Emergency Medicine; PCP Family Medicine; Visit Provider Student in an Organized Health Care Education/Training Program
DX: M87.851 Other osteonecrosis, right femur (principal); M16.7 Other unilateral secondary osteoarthritis of hip; M87.852 Other osteonecrosis, left femur; N17.9 Acute kidney failure, unspecified; I10 Essential (primary) hypertension; E03.9 Hypothyroidism, unspecified; Z20.822 Contact with and (suspected) exposure to COVID-19; F15.10 Other stimulant abuse, uncomplicated; W18.39XA Other fall on same level, initial encounter; Z87.891 Personal history of nicotine dependence
CPT/HCPCS: 36415; 51701; 70450; 71046; 73502; 80053; 80307; 81001; 81025; 82550; 82948; 83735; 84439; 84443; 84480; 85025; 87086; 87088; 96361; 96365; 96372; 99285; A9270; C9803; G0378; G0379; J0131; J0360; J1650; J7030; U0003; U0005

== ENCOUNTER 2022-06-02 08:13 | Outpatient (CLI) | payer OTHER, SELFPAY ==
--- NOTE | 2022-06-02 08:45 | ECG_ITS ---
Measurements Intervals Thompson Rate: 58 P: 38 SC: 124 QRS: 62 QRSD: 81 T: 42 QT: 433 QTc: 428 Interpretive Statements SINUS BRADYCARDIA BORDERLINE ECG COMPARED TO ECG 07/29/2021 15:36:46 SINUS BRADYCARDIA NOW PRESENT Electronically Signed On 06-02-2022 9:16:17 BROWN STOCK WASHER by Wyatt Salazar D.O.
[2022-06-02 09:17] LABS: Appearance Urine Clear (Clear); Bilirubin Urine Negative (Negative); Blood Urine Negative (Negative); Color Urine Yellow (Yellow); Glucose Urine UA Negative (Negative); Ketones Urine Negative (Negative); Leukocyte Esterase Ur Negative LEU/UL (Negative); Nitrate Urine Negative (Negative); Protein Urine Negative (Negative); Urobilinogen Urine 0.2 mg/dL (<2.0)
[2022-06-02 09:20] LABS: Barbiturate Screen Urine Negative (Negative); Benzodiazepines Screen Urine Negative (Negative)
[2022-06-02 09:22] LABS: Amphetamine Screen Urine Negative (Negative); Cocaine Screen Urine Negative (Negative); Methadone Screen Urine Negative (Negative); Opiate Screen Urine Negative (Negative); Phencyclidine Screen Urine Negative (Negative)
[2022-06-02 09:29] LABS: Anion Gap 0 mmol/L (8-16); Blood Urea Nitrogen 12 mg/dL (7-17); Calcium 8.3 mg/dL (8.4-10.2); Carbon Dioxide 29 mmol/L (22-30); Chloride 102 mmol/L (98-107); Estimated Glomerular Filt Rate > 60; Glucose 64 mg/dL (65-110); Potassium 4.4 mmol/L (3.4-5.0); Sodium 131 mmol/L (137-145)
[2022-06-02 09:35] LABS: Urine Cotinine POSITIVE
[2022-06-02 09:40] LABS: Add Urine Microscopic? NO
[2022-06-02 10:00] LABS: Cannabinoid Screen Urine Negative (Negative)
== END 2022-06-02 08:14 | disposition home or self-care (01) ==
LOC: ANHLAB 08:15
PROVIDERS: PCP Family Medicine; Visit Provider Orthopaedic Surgery
DX: M16.11 Unilateral primary osteoarthritis, right hip (principal); I10 Essential (primary) hypertension; N17.9 Acute kidney failure, unspecified; E03.9 Hypothyroidism, unspecified; M87.00 Idiopathic aseptic necrosis of unspecified bone; R00.1 Bradycardia, unspecified
CPT/HCPCS: 80048; 80307; 81003; 93005

== ENCOUNTER 2022-07-31 11:55 | Outpatient (CLI) | payer OTHER, SELFPAY ==
[2022-07-31 15:22] LABS: Appearance Urine Clear (Clear); Bilirubin Urine Negative (Negative); Blood Urine Negative (Negative); Color Urine Yellow (Yellow); Glucose Urine UA Negative (Negative); Ketones Urine Negative (Negative); Leukocyte Esterase Ur Negative LEU/UL (Negative); Nitrate Urine Negative (Negative); Protein Urine Negative (Negative); Specific Grav Ur 1.021 (1.001-1.035); pH Urine 7.5 (5.0-9.0)
[2022-07-31 15:27] LABS: Albumin Level 3.9 g/dL (3.5-5.1); Anion Gap 4 mmol/L (8-16); Blood Urea Nitrogen 13 mg/dL (7-17); Calcium 8.5 mg/dL (8.4-10.2); Carbon Dioxide 26 mmol/L (22-30); Chloride 103 mmol/L (98-107); Estimated Glomerular Filt Rate > 60; Glucose 99 mg/dL (65-110); Sodium 133 mmol/L (137-145)
[2022-07-31 15:30] LABS: Basophils Percent Auto 0.4 % (0.2-1.2); Eosinophils Absolute Auto 0.2 K/mm3 (0-0.3); Hematocrit 41.7 % (37.0-47.0); Hemoglobin 13.3 g/dL (12.0-15.0); Immature Granulocyte Absolute 0.05 K/mm3 (0.00-0.031); Immature Granulocyte Percent A 0.6 % (0-0.5); Lymphocytes Absolute Auto 2.64 K/mm3 (0.9-3.2); Lymphocytes Percent Auto 29.4 % (18.3-44.2); Mean Corpuscular HGB Conc 31.9 g/dl (32-36); Mean Corpuscular Hemoglobin 30.9 pg (26-34); Mean Corpuscular Volume 96.8 fl (80-100); Monocytes Absolute Auto 1.2 K/mm3 (0.1-0.6); Monocytes Percent Auto 12.9 % (2.6-8.5); Neutrophils Absolute Auto 4.9 K/mm3 (1.3-6.7); Neutrophils Percent Auto 54.7 % (45.5-73.1); Platelet Count Result 434 k/mm3 (150-375); Red Blood Count 4.31 M/mm3 (4.2-5.4); Red Cell Distribution Width 13.3 % (11.5-14.5); Urine Cotinine POSITIVE
[2022-07-31 15:33] LABS: Prothrombin Time 12.3 Seconds (11.1-14.7)
[2022-07-31 15:34] LABS: Partial Thromboplastin Time 25.9 SECONDS (22.3-36.8)
[2022-07-31 15:51] LABS: Add Urine Microscopic? NO
[2022-07-31 20:20] LABS: Hemoglobin A1C 5.1 % (<5.7)
== END 2022-07-31 11:56 | disposition home or self-care (01) ==
PROVIDERS: PCP Family Medicine; Visit Provider Orthopaedic Surgery
DX: Z01.812 Encounter for preprocedural laboratory examination (principal); M16.11 Unilateral primary osteoarthritis, right hip; N17.9 Acute kidney failure, unspecified; I10 Essential (primary) hypertension; E03.9 Hypothyroidism, unspecified
CPT/HCPCS: 80048; 80307; 81003; 82040; 83036; 85025; 85610; 85730; 86850; 86900; 86901; 87081

== ENCOUNTER 2022-09-15 08:12 | Outpatient (CLI) | payer OTHER, SELFPAY ==
[2022-09-15 08:38] LABS: Urine Cotinine NEGATIVE
== END 2022-09-15 08:13 | disposition home or self-care (01) ==
PROVIDERS: PCP Family Medicine; Visit Provider Orthopaedic Surgery
DX: M87.00 Idiopathic aseptic necrosis of unspecified bone (principal); M16.11 Unilateral primary osteoarthritis, right hip; F17.200 Nicotine dependence, unspecified, uncomplicated
CPT/HCPCS: 80307

== ENCOUNTER 2023-02-20 09:59 | Outpatient (CLI) | payer OTHER, SELFPAY ==
[2023-02-20 10:29] LABS: Basophils Absolute Auto 0.03 K/mm3 (0.00-0.10); Basophils Percent Auto 0.5 % (0.0-1.0); Eosinophils Absolute Auto 0.09 K/mm3 (0.02-0.50); Eosinophils Percent Auto 1.6 % (1.0-6.0); Hematocrit 42.1 % (35.0-49.0); Hemoglobin 13.3 g/dL (12.0-15.0); Immature Granulocyte Absolute 0.02 K/mm3 (0.00-0.00); Immature Granulocyte Percent A 0.4 % (0.0-0.0); Lymphocytes Absolute Auto 1.81 K/mm3 (1.10-4.50); Lymphocytes Percent Auto 31.9 % (18.0-42.0); Mean Corpuscular HGB Conc 31.6 g/dL (32.0-36.0); Mean Corpuscular Volume 94.8 fL (78.0-102.0); Mean Platelet Volume 9.3 fl (9.2-11.8); Monocytes Absolute Auto 0.66 K/mm3 (0.10-0.90); Monocytes Percent Auto 11.6 % (2.0-11.0); Neutrophils Absolute Auto 3.1 K/mm3 (1.7-7.2); Platelet Count Result 416 K/mm3 (150-420); Red Blood Count 4.44 M/mm3 (4.20-5.40); Red Cell Distribution Width 12.4 % (11.6-14.4); White Blood Count 5.7 K/mm3 (4.8-10.8)
[2023-02-20 10:33] LABS: Appearance Urine Clear (Clear); Bilirubin Urine Negative (Negative); Blood Urine Negative (Negative); Color Urine Light Yellow (Yellow); Glucose Urine UA Negative (Negative); Ketones Urine Negative (Negative); Leukocyte Esterase Ur 1+ (Negative); Nitrate Urine Negative (Negative); Protein Urine Negative (Negative); Specific Grav Ur 1.025 (1.010-1.020); Urobilinogen Urine 0.2 mg/dL (0.2-1.0)
[2023-02-20 10:37] LABS: Creatinine Urine 107.81 mg/dL (40-278); Microalbumin Urine Random < 13.0 mg/L
[2023-02-20 10:38] LABS: Add Urine Microscopic? YES; Bacteria Urine Rare /hpf; RBC Urine None seen /hpf (0-2); Squamous Epithelial Cell Urine Few /hpf (Few); WBC Urine 0-5 /hpf (0-3)
[2023-02-20 11:09] LABS: Alanine Aminotransferase 35 U/L (14-59); Albumin Level 3.4 g/dL (3.4-5.0); Alkaline Phosphatase 88 U/L (46-116); Anion Gap 6 mmol/L (8-16); Aspartate Amino Transferase 14 U/L (15-37); Beta HCG Quantitative < 1.00 mIU/mL (0-6); Bilirubin,Total 0.3 mg/dL (0.00-1.00); Blood Urea Nitrogen 11 mg/dL (7-18); Calcium 9.5 mg/dL (8.5-10.1); Carbon Dioxide 28 mmol/L (21-32); Chloride 108 mmol/L (98-108); Estimated Glomerular Filt Rate > 60; Glucose 82 mg/dL (70-99); Osmolality Calculated 292 mOsm/kg (285-295); Potassium 4.9 mmol/L (3.5-5.1); Sodium 142 mmol/L (136-145); Thyroid Stimulating Hormone 1.37 uIU/mL (0.36-3.74); Total Protein 6.8 g/dL (6.4-8.2)
[2023-02-20 11:11] LABS: HIV 1 P24 AG Negative (Negative); HIV 1/2 AB Negative (Negative)
[2023-02-20 19:49] LABS: Trichomonas Vag PCR NOT DETECTED (NOT DETECTE)
[2023-02-20 20:14] LABS: Chlamydia trachomatis NOT DETECTED (NOT DETECTE); Neisseria gonorrhoeae PCR NOT DETECTED (NOT DETECTE)
[2023-02-22 14:08] LABS: RPR Screen Non-Reactive (Non-Reactive)
== END 2023-02-20 10:00 | disposition home or self-care (01) ==
LOC: CHSLAB 10:03
PROVIDERS: PCP Family Medicine; Visit Provider Family Medicine
DX: I10 Essential (primary) hypertension (principal); Z20.2 Contact with and (suspected) exposure to infections with a predominantly sexual mode of transmission; N92.6 Irregular menstruation, unspecified; E03.9 Hypothyroidism, unspecified
CPT/HCPCS: 36415; 80053; 81001; 82043; 84443; 84702; 85025; 86592; 87491; 87591; 87661; 87806

== ENCOUNTER 2023-07-07 14:49 | Emergency (ER) | payer OTHER, SELFPAY ==
[2023-07-07 14:51] VITALS: BP 189/83; PULSE 100; RESP 16; TEMP 36.8
== END 2023-07-07 18:59 | disposition left against medical advice (07) ==
PROVIDERS: PCP Family Medicine
DX: R19.7 Diarrhea, unspecified (principal)
CPT/HCPCS: 99199

== ENCOUNTER 2024-04-27 15:13 | Outpatient (CLI) | payer MEDICAID, SELFPAY ==
--- NOTE | ~2024-04-27 | XR_ITS ---
XR knee LT 3V Ordering provider: Semaj Ricardo MD History: . PAIN IN LEFT KNEE AFTER FALL 12 MONTHS AGO . Comparison: None. FINDINGS: BONES: No acute fracture or dislocation. JOINT SPACES: Normal. Marginal osteophytes are noted in the patella. SOFT TISSUES: Normal. IMPRESSION: No acute osseous abnormality left knee. Mild osteoarthritic changes. Reviewed, dictated and finalized at location A. R GENERATION PLANT OPERATOR
[2024-04-27 15:33] LABS: Add Urine Microscopic? NO; Appearance Urine Clear (Clear); Bilirubin Urine Negative (Negative); Blood Urine Negative (Negative); Color Urine Light Yellow (Yellow); Glucose Urine UA Negative (Negative); Ketones Urine Negative (Negative); Leukocyte Esterase Ur Negative (Negative); Nitrate Urine Negative (Negative); Protein Urine Negative (Negative); Specific Grav Ur 1.015 (1.010-1.020); Urobilinogen Urine 0.2 mg/dL (0.2-1.0); pH Urine 6.5 (5.0-8.0)
[2024-04-27 15:34] LABS: Basophils Absolute Auto 0.03 K/mm3 (0.00-0.10); Basophils Percent Auto 0.4 % (0.0-1.0); Eosinophils Absolute Auto 0.25 K/mm3 (0.02-0.50); Hematocrit 40.1 % (35.0-49.0); Hemoglobin 12.9 g/dL (12.0-15.0); Immature Granulocyte Absolute 0.02 K/mm3 (0.00-0.00); Immature Granulocyte Percent A 0.2 % (0.0-0.0); Lymphocytes Absolute Auto 2.08 K/mm3 (1.10-4.50); Lymphocytes Percent Auto 25.3 % (18.0-42.0); Mean Corpuscular HGB Conc 32.2 g/dL (32-36); Mean Corpuscular Hemoglobin 29.8 pg (27.0-31.0); Mean Corpuscular Volume 92.6 fL (78.0-102.0); Monocytes Absolute Auto 0.74 K/mm3 (0.10-0.90); Neutrophils Absolute Auto 5.11 K/mm3 (1.70-7.20); Neutrophils Percent Auto 62.1 % (50.0-70.0); Platelet Count Result 352 K/mm3 (150-420); Red Blood Count 4.33 M/mm3 (4.20-5.40); Red Cell Distribution Width 13.4 % (11.6-14.4); White Blood Count 8.2 K/mm3 (4.8-10.8)
[2024-04-27 15:59] LABS: Creatinine Urine 18.05 mg/dL (40-278); Microalbumin Urine Random < 13.0 mg/L
[2024-04-27 17:11] LABS: Alanine Aminotransferase 24 U/L (14-59); Albumin Level 3.7 g/dL (3.4-5.0); Alkaline Phosphatase 109 U/L (46-116); Anion Gap 8 mmol/L (4-12); Aspartate Amino Transferase 17 U/L (15-37); Bilirubin,Total 0.3 mg/dL (0.00-1.00); Blood Urea Nitrogen 27 mg/dL (7-18); Carbon Dioxide 28 mmol/L (21-32); Chloride 105 mmol/L (98-108); Estimated Glomerular Filt Rate > 60; Glucose 93 mg/dL (70-99); Osmolality Calculated 297 mOsm/kg (285-295); Potassium 5.1 mmol/L (3.5-5.1); Sodium 141 mmol/L (136-145); Thyroid Stimulating Hormone 11.66 uIU/mL (0.36-3.74); Total Protein 6.9 g/dL (6.4-8.2)
== END 2024-04-27 15:14 | disposition home or self-care (01) ==
PROVIDERS: PCP Family Medicine; Visit Provider Family Medicine
DX: I10 Essential (primary) hypertension (principal); E03.9 Hypothyroidism, unspecified; M25.562 Pain in left knee
CPT/HCPCS: 36415; 73562; 80053; 81003; 82043; 84443; 85025

== ENCOUNTER 2024-10-01 08:36 | Emergency (ER) | payer OTHER, SELFPAY ==
--- OUTSIDE RECORDS SUMMARY | 2024-10-01 08:38 | XMS_ITS | Patient Health Record ---
Author Organization [facility] Address [address] [place] [address] Care Team Providers Care Assembly Worker Name Role Phone Jocelyn Hogan Primary Care Provider [phone] Getachew Coulter Unavailable [phone] Allergies No Known Allergies Reason For Referral No Information Medications Medication SIG (Take, Route, Frequency, Duration) Notes Start Date End Date Status Levothyroxine Sodium 88 MCG 1 tablet in the morning on an empty stomach Orally Once a day for 30 days Active Sertraline HCl 50 MG 1 tablet Orally Onc e a day for 30 days 09/20/2024 Active Lisinopril 10 MG 1 tablet Orally Once a day for 30 days Active FLUoxetine HCl 40 MG 1 capsule Orally On ce a day for 30 days Not-Taking Prazosin HCl 1 MG 1 capsule at bedtime Orally Once a day for 30 days 09/20/2024 Active OXcarbazepine 300 MG 1 tablet Orally Twi ce a day for 30 days 06/23/2022 Not-Taking Levothyroxine Sodium 100 MCG 1 tablet in the morning on an empty stomach Orally Once a day Active Social History Tobacco Use: Social History Observation Description Date Details (start date - stop date) Never Smoker NA - NA Sex Assigned At : Social History Observation Description Sex Assigned At Female Dont use, Tobacco Use/Smoking Question Answer Notes Are you a current some day smoker PRAPARE Question Answer Notes Date Completed/Updated: 04/18/2024 What is your current housing situation? I do not have housing (staying with others, in a hotel, in a mcc, living outside on the street, on a beach, or in a park) Are you worried about losing your housing? No What is the highest level of school that you have finished? 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 Check all that apply I do not have problems meeting my needs Has lack of transportation k ept you from medical appointments, meetings, work or from getting things needed for daily living? No How often do you see or talk to people that you care about and feel close to? (For example: talking to friends on the phone, visiting friends or family, going to worship or club meetings) More than 5 times a week How stressed are you? Stress is when someone feels tense, nervous, anxious, or can\t sleep at night because their mind is troubled A little bit In the past year have you sp ent more than 2 nights in a row in a fci, nursing home, [place] [facility], or juvenile correctional facility? Yes Are you a refugee? Yes What country are you from? [place] Do you feel physically and e motionally safe where you currently live? Yes In the past year, have you b een afraid of your partner or ex-partner? No PRAPARE Score: 6 Tobacco Control (Standard) Question Answer Notes Tobacco use: Nonsmoker Problems Problem Type SNOMED Code ICD Code Onset Dates Problem Status W/U Status Risk Notes Problem Insomnia (269518869) Insomnia (G47.00) Active confirmed Problem Posttraumatic stress disorder (46213051) PTSD (post-traumatic stress disorder) (F43.10) Active confirmed Problem Anxiety (08834534) Anxiety (F41.9) Active confirmed Problem Bipolar affective disorder (12357882) Bipolar affective disorder (F31.9) Active confirmed Problem Major depressive disorder (372188540) MDD (major depressive disorder) (F32.9) Active confirmed Problem Alcohol use disorder (4364412909) Alcohol use disorder (F10.99) Active confirmed Problem 408868163 Methamphetamine abuse (F15.10) Active confirmed Problem 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 confirmed Problem Stimulant dependence (397438580) Methamphetamine use disorder, severe, 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) Active confirmed Encounters Encounter Location Date Provider Diagnosis [address] [address] 09/20/2024 Jocelyn Hogan PTSD (post-traumatic stress disorder) F43.10 ; Insomnia G47.00 ; MDD (major depressive disorder) F32.9 ; Anxiety F41.9 and Methamphetamine abuse in remission F15.[address] [place] [address] 04/19/2024 Getachew Coulter [address] [address] 04/19/2024 Getachew Coulter [address] [address] 09/26/2024 Jocelyn Hogan Assessments Encounter Date Diagnosis (ICD Code) Assessment Notes Treatment Notes Treatment Clinical Notes Section Notes 09/20/2024 Insomnia (ICD-10 - G47.00) 09/20/2024 PTSD (post-traumatic stress disorder) (ICD-10 - F43.10) Begin Prazosin - take as prescribed. Reviewed purpose (to reduce PTSD symptoms such a nightmares or flashbacks), benefits, and risks - including low blood pressure and serious interaction with medications used to treat erectile dysfunction. Omit taking if you are lightheaded or dizzy. If these symptoms persist, call our office. Call for problems with medication, side effects or need for dosage change. 09/20/2024 MDD (major depressive disorder) (ICD-10 - F32.9) Start Sertraline. Reviewed side effects which may include increased risk of suicide, anxiety, sleep disturbance, nausea, dry mouth, increased bruising, sexual dysfunction, chava, wt gain, and serotonin syndrome. Need to notify provider if planning or experiencing . Call for problems with medication, side effects or need for dosage change. 09/20/2024 Anxiety (ICD-10 - F41.9) 09/20/2024 Methamphetamine abuse in remission (ICD-10 - F15.11) 09/20/2024 Other Medication Hx: -Fluoxetine -Oxcarbazepine -Lurasidone -Seroquel = okay for sleep in past -Lamotrigine = paradoxical effect -Cogentin -Risperidone -Abilify = questionable akathisia May self-administer medications or be administered own oral medications per [facility] protocols. Provided informed consent with understanding of side effects, adverse effects, risks and benefits as well as alternative treatments as previously discussed and with the above recommended medications & other aspects of the treatment program. Agrees to return sooner if symptoms worsen or suicidal or homicidal ideations occur. Plan: -Start Prazosin 1 mg QHS -Start Sertraline 50 mg once daily *patient is getting labs done with PCP next week, will send them to [facility] -Follow up: 4 weeks [] Hard Rx handed to patient [] Rx phoned into pharmacy [x] Rx faxed/e-prescribed into pharmacy [x] PDMP Reviewed [] [facility] Reviewed Encour[facility] by [facility] to: [] consider utilizing therapist/counselor /director of social work/psychologist , referral given [x] continue with therapist/counselor /director of social work/psychologist Psychoeducation: -Treatment options discussed in detail with patient/guardian verbalizing understanding of treatment rationales. -Side effects and benefits of all medications prescribed discussed at length between psychiatric prescribing provider and patient/guardian along with the risks associated of [id number] interactions, including but not limited to prescription medications, OTC medications, vitamins, minerals and herbal supplements. -Patient/Guardian and provider dialogue showcased verbalized understanding from patient on rationales of medication risk vs benefits. -Information with neurobiology of presenting neurotransmitter disorder, mood stability, sleep hygiene and 7-8 hours of uninterrupted sleep per night with wakeful and refreshed awakening and day long alertness discussed. -Reduction of stress and anxiety to aid in focus and concentration discussed, again, with patient/guardian physically nodding, voicing understanding, and engaged in treatment plan with [facility] -Perceiving complete understanding of rationale by patient/guardian and willingness to adhere to formulated plan of care by prescriber with patient/guardian buy-in, willingness to participate actively in plan of care and willing to take charge of own care. -Although geared for female patients, all patients/guardians are informed by prescribing provider of risks of medications that could potentially be taken by female/women within their sleetmute of influence and that women who use medicine during have a higher chance of having a baby with defects. -Patient/Guardian denies being and/or knowing of women who are at present and denies wanting to become in the foreseeable future, 0-6 months from now. -Patient/Guardian again informed of the risk of pharmaceutical medications consumed during and how there are potential negative effects on the developing fetus. -Patient/Guardian verbalizes understanding of rationale and physically nods head in agreement that if a should occur, to consult with provider, MILLER WOOD FLOUR and/or Nurse Marketing Services Manager to determine if prescribed medications should or should not be continued. -Instructions regarding both the medical/pharmacolog ical and non-pharmacologic aspects of the treatments employed were given, and the patient/guardian seemed to understand this. Risks and benefits of treatment, and of non-treatment, were also discussed. The patient/guardian understands the more frequent side effects associated with the medications. -The use of psychotherapy was addressed today and will continue on an as needed basis for the foreseeable future. The choice is, of course, ultimately left to the patient/guardian. -Patient/Guardian was encouraged to make a follow-up appointment for the next visit. -Additional treatment was discussed and has been addressed on an ongoing basis within the context of this patient's illness, resources, progress, and other appropriate factors. Being compliant with a regular exercise routine, consistent medication use, ongoing psychotherapy, eating and sleeping well, as well as the importance of handling stress, was discussed. Plan Of Treatment No Information Insurance Providers Payer Name Payer Address Payer Phone Subscriber Number Group Number Insured Name Patient Relationship to Insured Coverage Start Date Coverage End Date [employer] [address] [place] [address] [id number] Lizbet Camp Self - patient is the insured 1 [employer] [address] [place] [address] [id number] Lizbet Camp Self - patient is the insured 1 Medical (General) History Medical History History ICD Code MDD (major depressive disorder) F32.9 Mood disorder F39 Methamphetamine Use Disorder Alcohol Use Disorder PTSD Surgical History Surgery Date(Month/Year) Hospitalization History Reason Date(Month/Year) Rehab in [place] 03/2022
--- OUTSIDE RECORDS SUMMARY | 2024-10-01 08:38 | XMS_ITS | Clinical Summary ---
Author Organization [facility] Address [address] [place] [address] Care Team Providers Care Senior Maintenance Machinist Name Role Phone Semaj Ricardo MD Primary Care Provide r Julian Huang MD Unavailable [phone] Allergies No known active allergies Medications levothyroxine (SYNTHROID) 88 mcg tablet Take 1 tablet (88 mcg total) by mouth quality control coordinator before breakfast Active levothyroxine (SYNTHROID) 100 mcg tablet Take 1 tablet (100 mcg total) by mouth quality control coordinator before breakfast Active lisinopriL (PRINIVIL,ZEST RIL) 10 mg tablet Take 1 tablet (10 mg total) by mouth every morning Active aspirin 81 mg enteric coated tablet Take 1 tablet (81 mg total) by mouth 2 (two) times a day 84 tablet 5 025 Discontin ued(Patie nt Reported) celecoxib (CeleBREX) 200 mg capsuleIndicat ions:Postopera tive Acute Pain Take 1 capsule (200 mg total) by mouth 2 (two) times a day 84 capsule 5 025 Discontin ued(Patie nt Reported) ondansetron (ZOFRAN) 8 mg tabletIndicati ons:Prevention of Post-Operative Nausea and Vomiting Take 1 tablet (8 mg total) by mouth every 8 (eight) hours as needed for nausea or vomiting 20 tablet 2 5 025 Discontin ued(Patie nt Reported) senna-docusate (PERICOLACE) 8.6-50 mg Take 1 tablet by mouth 2 (two) times a day as needed for constipation 60 tablet 2 5 025 Discontin ued(Patie nt Reported) oxyCODONE-acet aminophen (PERCOCET) 5-325 mg per tabletIndicati ons:Pain Take 1-2 tablets by mouth every 4 (four) hours as needed for pain 40 tablet 5 025 Discontin ued(Patie nt Reported) Active Problems Problem Noted Date Diagnosed Date Aftercare following right hip joint replacement surgery 08/10/2024 Resolved Problems Problem Noted Date Diagnosed Date Resolved Date Avascular necrosis of bone of right hip 07/11/2024 08/10/2024 Encounters Date Type Department Care Team Description 09/20/2024 11:30 AM CDT Office Visit [facility] Medical [facility] Orthopedics and Sports Medicine [address] [place] [phone] Krysta Luo NP Aftercare following right hip joint replacement surgery (Primary Dx) 09/20/2024 10:48 AM CDT - 09/20/2024 11:59 PM CDT Hospital Encounter [facility] Orthopedics and Sports Medicine [address] [place] [phone] Discharge Disposition: Discharge to home or self care 08/11/2024 11:45 AM CDT Telemedicine [facility] Orthopedics and Sports Medicine [address] [place] [phone] Melania Zhang PA Aftercare following right hip joint replacement surgery (Primary Dx) 08/10/2024 Telephone [facility] Orthopedics and Sports Medicine [address] [place] [phone] Melania Zhang PA 08/01/2024 Telephone [facility] Orthopedics and Sports Medicine [address] [place] [phone] Melania Zhang PA 07/20/2024 8:30 AM LEAD BUSINESS SYSTEMS ANALYST - 07/20/2024 10:55 AM LEAD BUSINESS SYSTEMS ANALYST Surgery [facility] Operating Room [address] [place] [address] Julian Huang MD Right Total Hip Arthroplasty 07/20/2024 8:27 AM LEAD BUSINESS SYSTEMS ANALYST Anesthesia Event [facility] Operating Room [address] [place] [address] Juana Hoang MD Okafor, Emenike Adolphus Jr., MD 07/20/2024 6:55 AM LEAD BUSINESS SYSTEMS ANALYST - 07/20/2024 4:20 PM LEAD BUSINESS SYSTEMS ANALYST Hospital Encounter [facility] Operating Room [address] [place] [address] Julian Huang MD Avascular necrosis of bone of right hip (HCC) (Primary Dx) Discharge Disposition: Discharge to home or self care 07/18/2024 11:00 AM LEAD BUSINESS SYSTEMS ANALYST Lab [address] [phone] Right hip pain; Pre-operative exam 07/12/2024 Telephone [facility] Orthopedics and Sports Medicine [address] [facility] [address] [place] [address] Neha Hatfield MA surgery 07/11/2024 10:10 AM LEAD BUSINESS SYSTEMS ANALYST Lab [address] [phone] Avascular necrosis of bone of right hip (HCC) 07/11/2024 10:04 AM LEAD BUSINESS SYSTEMS ANALYST - 07/11/2024 11:59 PM LEAD BUSINESS SYSTEMS ANALYST Hospital Encounter [facility] [address] [place] [address] Pre-operative exam Discharge Disposition: Discharge to home or self care 07/11/2024 10:03 AM LEAD BUSINESS SYSTEMS ANALYST - 07/11/2024 11:59 PM LEAD BUSINESS SYSTEMS ANALYST Hospital Encounter [facility] Cardiology [address] [place] [address] Right hip pain; Pre-operative exam Discharge Disposition: Discharge to home or self care from Last 3 Months Medical History Medical History Date Comments Thyroid disease Hypertension Social History Tobacco Use Types Packs/Day Years Used Date Smoking Tobacco: Never Smokeless Tobacco: Never Tobacco Cessation:Counseling Given: Not Answered AUDIT-C Answer Date Recorded Q1: How often do you have a drink containing alc ohol? Monthly or less 07/20/2024 Q2: How many drinks containi ng alcohol do you have on a typical day when you are drinking? 1 or 2 07/20/2024 Q3: How often do you have si x or more drinks on one occasion? Never 07/20/2024 Personal Safety Answer Date Recorded Have you ever been in or are you currently in a harmful physical or emotional relationship or is someone making you feel afraid or unsafe? Denies 07/20/2024 Comments No Sex and Gender Information Value Date Recorded Sex Assigned at Not on file Legal Sex Female 3:56 AM CDT Gender Identity Not on file Sexual Orientation Not on file Obstetrics History Last Filed Vital Signs Vital Sign Reading Time Taken Comments Blood Pressure 150/101 09/20/2024 11:32 AM CDT Pulse 96 09/20/2024 11:32 AM CDT Temperature 36.3 C (97.4 F) 07/20/2024 4:06 PM LEAD BUSINESS SYSTEMS ANALYST Respiratory Rate 18 07/20/2024 4:06 PM LEAD BUSINESS SYSTEMS ANALYST Oxygen Saturation 97% 07/20/2024 4:06 PM LEAD BUSINESS SYSTEMS ANALYST Inhaled Oxygen Concentration - - Weight 80.3 kg (177 lb) 09/20/2024 11:32 AM CDT Height 160 cm (5' 3 ) 09/20/2024 11:32 AM CDT Body Mass Index 31.35 09/20/2024 11:32 AM CDT Plan of Treatment Health Maintenance Due Date Last Done Comments Breast Cancer Screening-Mammogram 1975 Cervical Cancer Screening 1975 Colon Cancer Screening-Colonoscopy 1975 Depression Screening 1975 Hepatitis C Screening 1975 Hepatitis B Screening 1994 Regular Well Visit/Exam 18-64 1994 Covid-19 Vaccine (3 - 2023-2 5 season) 2024 07/21/2021, 05/30/2021 Influenza Vaccine (Season Ended) 2025 03/09/2020 DTaP/Tdap/Td Vaccine (3 - Td or Tdap) 03/02/2031 03/02/2021, 04/07/2019 Pneumococcal vaccine <65 Aged Out No longer eligible based on patient's age to complete this topic Medical Devices Implanted Type Area Grocery Department Manager Device Identifier Shelf Expiration Date Model / Serial / Lot [employer] Cuney 6.5mm 35mm Acetabular Cancellous Screw Bone Sterile 1217-35-500 - [id number] Implanted:Qty: 1 on 07/20/2024 by Julian Huang MD at [facility] Right: Hip [employer] [id number] 04/16/2034 1217-35-500 / / [id number] [employer] Shell Acetabular Hip Porous 3 Hole Coated Emphasys 50mm Titanium [id number] - [id number] Implanted:Qty: 1 on 07/20/2024 by Julian Huang MD at [facility] Right: Hip [employer] [id number] 05/17/2034 [id number] / / [id number] [employer] Liner Acetabular Hip Standard Emphasys Aox 47h18cl Polyethylene [id number] - [id number] Implanted:Qty: 1 on 07/20/2024 by Julian Huang MD at [facility] Right: Hip [employer] [id number] 04/16/2029 [id number] / / [id number] [employer] Actis Collared Hip 04/30 3 Standard Offset Stem Femoral [id number] - [id number] Implanted:Qty: 1 on 07/20/2024 by Julian Huang MD at [facility] Right: Hip [employer] [id number] 01/15/2034 [id number] / / [id number] [employer] Articul/Ted 36mm Cementless Hip +5mm 04/30 Taper Head Femoral Latex Free [id number] - [id number] Implanted:Qty: 1 on 07/20/2024 by Julian Huang MD at [facility] Right: Hip [employer] [id number] 02/14/2029 [id number] / / [id number] Procedures Procedure Name Priority Date/Time Associated Diagnosis Comments XR HIP RIGHT 2 OR 3 VIEWS Schedule Routine, Read Routine (OP Routine) 09/20/2024 11:29 AM CDT Aftercare following right hip joint replacement surgery SURGICAL PATHOLOGY Routine 07/20/2024 1 :04 PM LEAD BUSINESS SYSTEMS ANALYST Avascular necrosis of bone of right hip (HCC) XR PELVIS ORTHO VIEW ED Urgent/IP Urgent 07/20/2024 10:36 AM LEAD BUSINESS SYSTEMS ANALYST FL FLUOROSCOPY < 1 HOUR IP Routine 07/20/2024 10:00 AM LEAD BUSINESS SYSTEMS ANALYST XR HIP RIGHT 1 VIEW IP Routine 07/20/2024 1 0:00 AM LEAD BUSINESS SYSTEMS ANALYST ANESTHESIA SPINAL BLOCK Routine 07/20/2024 8:42 AM LEAD BUSINESS SYSTEMS ANALYST ARTHROPLASTY TOTAL HIP - ANTERIOR APPROACH 07/20/2024 8:07 AM LEAD BUSINESS SYSTEMS ANALYST Avascular necrosis of bone of right hip (HCC) Special Needs Anterior Approach, [Depuy- Actis], Omnitrac, Aquamantys, 1 liter beta rinse, Pt to go home APTT STAT 07/20/2024 7:26 AM LEAD BUSINESS SYSTEMS ANALYST PROTIME-INR STAT 07/20/2024 7:26 AM LEAD BUSINESS SYSTEMS ANALYST POCT HCG, URINE Routine 07/20/2024 7:16 AM LEAD BUSINESS SYSTEMS ANALYST URINALYSIS AND REFLEX TO MICROSCOPIC AND CULTURE Routine 07/18/2024 11:45 AM LEAD BUSINESS SYSTEMS ANALYST Right hip pain Pre-operative exam EGFR Routine 07/18/2024 11:42 AM LEAD BUSINESS SYSTEMS ANALYST Right hip pain Pre-operative exam DIFFERENTIAL AUTO Routine 07/18/2024 11: 42 AM LEAD BUSINESS SYSTEMS ANALYST Right hip pain Pre-operative exam CBC WITH AUTO DIFFERENTIAL Routine 07/18/2024 11:42 AM LEAD BUSINESS SYSTEMS ANALYST Right hip pain Pre-operative exam COMPREHENSIVE METABOLIC PANEL Routine 07/18/2024 11:42 AM LEAD BUSINESS SYSTEMS ANALYST Right hip pain Pre-operative exam HEMOGLOBIN A1C Routine 07/18/2024 11:42 AM LEAD BUSINESS SYSTEMS ANALYST Right hip pain Pre-operative exam XR CHEST PA LATERAL 2 VIEWS Schedule Routine, Read Routine (OP Routine) 07/11/2024 10:42 AM LEAD BUSINESS SYSTEMS ANALYST Pre-operative exam ECG 12-LEAD Routine 07/11/2024 10:33 AM LEAD BUSINESS SYSTEMS ANALYST Right hip pain Pre-operative exam PROTIME-INR Routine 07/11/2024 10:12 AM LEAD BUSINESS SYSTEMS ANALYST Avascular necrosis of bone of right hip (HCC) APTT Routine 07/11/2024 10:12 AM LEAD BUSINESS SYSTEMS ANALYST Avascular necrosis of bone of right hip (HCC) from Last 3 Months Results * XR Hip Right 2 or 3 Views (09/20/2024 11:29 AM CDT) Anatomical Region Laterality Modality Lower Extremities, Hip, Pelvis Right D igital Radiography Narrative 09/20/2024 11:33 AM CDT Radiographs taken of the right hip today reveal a total hip arthroplasty in appropriate position with no interval change from the time of surgery. Krysta Luo PRECISION LATHE OPERATOR IMG XR PROCEDURES Final Result * Surgical pathology (07/20/2024 1:04 PM LEAD BUSINESS SYSTEMS ANALYST) Tissue specimen (specimen) (Bone Fragment(s),) 07/20/2024 9:12 AM LEAD BUSINESS SYSTEMS ANALYST Narrative PATHOLOGY [facility] - 07/22/2024 6:14 PM LEAD BUSINESS SYSTEMS ANALYST EPIC results best viewed via link to PDF [facility] Department of Pathology [address] [place] [address] Note to Patients: This report may contain a detailed description of human tissue sent by a health care provider to the laboratory for pathologic evaluation. The content of this report is essential for diagnosis and may provide important critical findings. This information may be unfamiliar to patients to review without a medical professional present. It is advised that the patient review this report in the presence of a health care provider who can answer questions and explain the details. Final Report Patient Name: LIZBET CAMP Address: [address] [place] [address] , [place] [address] Gender: F : 1975 (Age: 48) Service: Surgery Location: [facility] Hospital #: [id number] Patient Type: [facility] Taken: 07/20/2024 Received: 07/20/2024 Accessioned: 07/20/2024 Reported: 07/22/2024 Physician(s):Dr. Julian Huang M.D. Diagnosis: A. Right hip, total arthroplasty- Changes consistent with avascular necrosis Germania Almodovar M.D. Report Electronically Reviewed and Signed Out By Germania Almodovar M.D. 07/22/2024 18:14:34 Specimen(s) Received: A: right hip bone and tissue fragments Microscopic Description: Microscopic examination corroborates the diagnosis. Clinical History: Avascular necrosis of bone of right hip (HCC) [M87.051] Right total hip arthroplasty Gross Description: The specimen is received in a single container labeled LIZBET CAMP and right hip . It is a 5.3 cm in diameter femoral head and separate 15 cc aggregate of bonner gritty hemorrhagic cortical and cancellous bone. The articular surface of the femoral head is flattened and deformed. It shows degenerative changes of the cartilage with erosion and eburnation. The femoral neck margin is smooth. The specimen is bisected revealing no subchondral gross lesions. Toll Line Mechanic sections are submitted in one cassette after decalcification. Inocencia Potts R.N., P.A./Germania Almodovar M.D. REPORT IMAGES AND SCANNED DOCUMENTS, IF INCLUDED, ONLY VIEWABLE IN PDF VERSION OF REPORT The performance characteristics of some immunohistochemical stains, fluorescence in-situ hybridization tests and immunophenotyping by flow cytometry cited in this report (if any) were determined by the Surgical Pathology Department at [facility] as part of an ongoing quality assurance inspector program and in compliance with federally mandated regulations drawn from the Clinical Laboratory Improvement Act of 1988 (CLIA '88). Some of these tests rely on the use of analyte specific reagents and are subject to specific labeling requirements by the US Food and Drug Administration. Such diagnostic tests may only be performed in a facility that is certified by the Department of Health and Human Services as a high complexity laboratory under CLIA '88. The FDA has determined that such clearance or approval is not necessary. This test is used for clinical purposes. It should not be regarded as investigational or for research. Nevertheless, federal rules concerning the medical use of analyte specific reagents require that the following disclaimer be attached to the report: This test was developed and its performance characteristics determined by the Surgical Pathology Department [facility]. It has not been cleared or approved by the U. S. Food and Drug Administration. Note for decalcified specimens: This assay has not been validated on decalcified tissues. Results should be interpreted with caution given the possibility of false negativity on decalcified specimens Julian Huang MD LAB PATHOLOGY ORDERABLES Final Result PATHOLOGY [facility] ([facility]) [address] [place] [address] * XR Pelvis Ortho View (07/20/2024 10:36 AM LEAD BUSINESS SYSTEMS ANALYST) Anatomical Region Laterality Modality Body, Pelvis N/A Computed Radiogr aphy 07/20/2024 11:2 8 AM LEAD BUSINESS SYSTEMS ANALYST Narrative 07/20/2024 11:29 AM LEAD BUSINESS SYSTEMS ANALYST EXAM DESCRIPTION: XR PELVIS ORTHO VIEW REASON FOR STUDY: Pre-Surgery or Post-Surgery Health Examination Post op right hip TECHNIQUE: Single frontal radiographic view(s) of the pelvis . COMPARISON: Pelvis/right hip radiographs dated 04/28/2024. FINDINGS: The right total hip arthroplasty instrumentation is new when compared to the previous right hip radiographs dated 04/28/2024. Adjacent soft tissue swelling and air is likely postoperative in nature. There are pelvic phleboliths. IMPRESSION: Right total hip arthroplasty related changes are new when compared to the previous right knee radiographs dated 04/28/2024. THIS IS AN ELECTRONICALLY VERIFIED FINAL REPORT 07/20/2024 11:29 AM - Electronically signed by Haim Cardona D.O. AP: AP Report ID: [id number] Reading Location: [id number] Procedure Note Haim Cardona, DO - 07/20/2024 EXAM DESCRIPTION: XR PELVIS ORTHO VIEW REASON FOR STUDY: Pre-Surgery or Post-Surgery Health Examination Post op right hip TECHNIQUE: Single frontal radiographic view(s) of the pelvis . COMPARISON: Pelvis/right hip radiographs dated 04/28/2024. FINDINGS: The right total hip arthroplasty instrumentation is new when compared tothe previous right hip radiographs dated 04/28/2024. Adjacent soft tissue swelling and air is likely postoperative in nature. There are pelvic phleboliths. IMPRESSION: Right total hip arthroplasty related changes are new when compared to the previous right knee radiographs dated 04/28/2024. THIS IS AN ELECTRONICALLY VERIFIED FINAL REPORT 07/20/2024 11:29 AM - Electronically signed by Haim Cardona D.O. AP: AP Report ID: [id number] Reading Location: [place] [address] Julian Huang MD IMG XR PROCEDURES Final Result * FL Fluoroscopy < 1 Hour (07/20/2024 10:00 AM LEAD BUSINESS SYSTEMS ANALYST) Narrative [facility] - 07/20/2024 10:01 AM LEAD BUSINESS SYSTEMS ANALYST The images from this study are not interpreted by Radiology. Please refer to the physician's procedure / OR operative note. Julian Huang MD G FLUOROSCOPY PROCEDUR ES Final Result [facility] * XR Hip Right 1 View (07/20/2024 10:00 AM LEAD BUSINESS SYSTEMS ANALYST) Anatomical Region Laterality Modality Lower Extremities, Hip, Pelvis Right R adio Fluoroscopy 07/23/2024 3:32 PM LEAD BUSINESS SYSTEMS ANALYST Narrative 07/23/2024 3:33 PM LEAD BUSINESS SYSTEMS ANALYST EXAM DESCRIPTION: XR HIP RIGHT 1 VIEW REASON FOR STUDY: pain Fluoro 13.2 mGy 1.32 FINDINGS: Multiple fluoroscopic images consisting of a single view(s) submitted with comparison 04/28/2024 . Dose area product equals [id number] mGym*2. Fluoroscopic images demonstrate an in progress right total hip arthroplasty placement . Soft tissue gas is present. IMPRESSION: In progress right total hip arthroplasty placement. THIS IS AN ELECTRONICALLY VERIFIED FINAL REPORT 07/23/2024 3:33 PM - Electronically signed by Richard Mejía M.D. MF: CODY Report ID: [id number] Reading Location: [id number] Procedure Note Richard Mejía MD - 07/23/2024 EXAM DESCRIPTION: XR HIP RIGHT 1 VIEW REASON FOR STUDY: pain Fluoro 13.2 mGy 1.32 FINDINGS: Multiple fluoroscopic images consisting of a single view(s) submittedwith comparison 04/28/2024 . Dose area product equals [id number] mGym*2. Fluoroscopic images demonstrate an in progress right total hiparthroplasty placement . Soft tissue gas is present. IMPRESSION: In progress right total hip arthroplasty placement. THIS IS AN ELECTRONICALLY VERIFIED FINAL REPORT 07/23/2024 3:33 PM - Electronically signed by Richard Mejía M.D. MF: CODY Report ID: [id number] Reading Location: [id number] Julian Huang MD IMG XR PROCEDURES Final Result * Spinal Block (07/20/2024 8:42 AM LEAD BUSINESS SYSTEMS ANALYST) Narrative Kermit Khan CRNA - 07/20/2024 8:42 AM LEAD BUSINESS SYSTEMS ANALYST Kermit Khan CRNA 07/20/2024 8:43 AM Spinal Block Patient location: OR End time: 07/20/2024 8:35 AM Reason for block: primary anesthetic Staff: Supervising provider: Juana Hoang MD Placed by: COMMISSION AUDITOR:Kermit Khan CRNA Procedure prep: Preprocedure checklist: patient identified, procedure contraindications assessed, site marked, procedure consent, surgical consent, IV checked, risks, benefits and alternatives discussed, monitors and equipment checked and timeout performed Patient position: sitting Procedure performed while patient: sedate with meaningful contact Monitoring: oximetry and blood pressure Prep solution: chlorhexadine/alcohol PPE: provider hat/mask, sterile gloves and sterile drape Skin infiltrated with lidocaine 1%: yes Spinal: Approach: midline Introducer used: yes Location: L3-4 Spinal injection: CSF demonstrated, no aspiration of heme and no paresthesias noted Number of attempts: 2 Other sites attempted: l3-4 Spinal Needle: Needle type: Cecilia Needle gauge: 22 G Needle length: 5 cm Assessment: Sensory deficit - left: full eval pending Sensory deficit - right: full eval pending Events: patient tolerated procedure well with no complications Result [facility] Juana Hoang MD ANESTHESIA ORDERABLES Fi nal Result * aPTT (07/20/2024 7:26 AM LEAD BUSINESS SYSTEMS ANALYST) aPTT 35 28 - 38 sec [facility] ([facility]) Comment: Interpretive Data Heparin therapeutic range: 66.0 - 100.0 seconds. Range based on correlation with therapeutic heparin activity range of 0.3 - 0.7 Units/mL. Current interpretive data was last revised on 2023. Blood 07/20/2024 7:26 AM LEAD BUSINESS SYSTEMS ANALYST 07/20/2024 7:27 AM LEAD BUSINESS SYSTEMS ANALYST Julian Haung MD LAB BLOOD ORDERABLES Fin al Result Performing Organization Address [facility] de Phone Number [facility] [address] [place] [address] [place] [address] * Protime-INR (07/20/2024 7:26 AM LEAD BUSINESS SYSTEMS ANALYST) PT 10.4 9.7 - 13.0 sec [facility] ([facility]) INR 0.96 0.90 - 1.20 [facility] ([facility] Comment: Interpretive data Oral anticoagulant therapeutic ranges: Venous thromboembolism prophylaxis or treatment: 2.0-3.0 CARDIOLOGY Standard range: 2.0-3.0 High-intensity range: 2.5-3.5 Refer to indication-specific guidelines for appropriate target ranges for prosthetic heart valve replacement. Current interpretive data was last revised on 2019. Blood 07/20/2024 7:26 AM LEAD BUSINESS SYSTEMS ANALYST 07/20/2024 7:27 AM LEAD BUSINESS SYSTEMS ANALYST Result [facility] Julian Huang MD LAB BLOOD ORDERABLES Fin al Result Performing Organization Address [facility] Co de Phone Number [facility] [address] [facility] [place] [address] * POCT hCG, urine (07/20/2024 7:16 AM LEAD BUSINESS SYSTEMS ANALYST) HCG, ur, POC Negative Negative Lot Number [id number] QC Backgroud Clear Acceptable QC Control Line Acceptable Urine 07/20/2024 7:16 AM LEAD BUSINESS SYSTEMS ANALYST Maylin Cedeno Jr., MD POINT OF CARE ST ORDERABLES Final Result * Urinalysis reflex to microscopic and culture Urine (07/18/2024 11:45 AM LEAD BUSINESS SYSTEMS ANALYST) Color, ur Yellow Yellow Clarity, ur Clear Clear [facility] ([facility]) Specific gravity, ur 1.020 1.003 - 1.030 [facility] ([facility]) pH, urine 8.0 [facility] ([facility]) Comment: Interpretive Data U rine pH is affected by diet, medications, systemic acid-base disturbances, and renal tubular function. pH may affect urinary stone formation. For example, urine pH below 6.0 may help reduce the tendency for calcium phosphate stones and pH greater than 6.0 may reduce the tendency for uric acid stone formation. Source: [facility] Advaxis Current Interpretive Data was last revised on 2017 Protein, ur ql Trace Negative [facility]) Glucose, ur ql Negative Negative [facility]) Ketones, ur Negative Negative [facility] ([facility]) Bilirubin, ur Negative Negative [facility] ([facility]) Blood, ur Negative Negative [facility] ([facility]) Urobilinogen, ur <2.0 <2.0 mg/dL [facility] ([facility]) Nitrite, ur Negative Negative [facility] ([facility]) Leukocyte esterase, ur Negative Negative [facility] ([facility]) UA reflex comment Reflex conditions for microscopic UA and culture not met. [facility] ([facility]) Urine 07/18/2024 11:4 5 AM LEAD BUSINESS SYSTEMS ANALYST 07/18/2024 11:52 AM LEAD BUSINESS SYSTEMS ANALYST Melania CADE LAB MICROBIOLOGY - NERAL ORDERABLES Final Result [facility] ([facility]) [address] [facility] [place] [address] * eGFR (07/18/2024 11:42 AM LEAD BUSINESS SYSTEMS ANALYST) Pathologist [facility] eGFR >90 >=60 mL/min/1. 73 m2 Comment: Interpretive Data Reference Interval Normal >/= 90 mL/min/1.73m2 Mildly decreased* 60 - 89 mL/min/1.73m2 Mildly to moderately decreased 45 - 59 mL/min/1.73m2 Moderately to severely decreased 30 - 44 mL/min/1.73m2 Severely decreased 15 - 29 mL/min/1.73m2 Kidney Failure < 15 mL/min/1.73m2 *Relative to young adult level Estimated glomerular filtration rate is determined by the 2020 CKD-EPI equation recommended by the National Kidney Foundation (A Unifying Approach to GFR Estimation: Recommendations of the NKF-ASK Task Force on Reassessing the Inclusion of Race in Diagnosing Kidney Disease, JASN 2020). The CKD-EPI equation should not be used for patients with unstable renal function and has not been validated in children and those over 70. Current interpretive data was last reviewed 2021. Blood 07/18/2024 11:4 2 AM LEAD BUSINESS SYSTEMS ANALYST 07/18/2024 11:51 AM LEAD BUSINESS SYSTEMS ANALYST Melania CADE LAB BLOOD ORDERABLES Final Result [facility]) 1 [facility] [place] [address] * Differential, auto (07/18/2024 11:42 AM LEAD BUSINESS SYSTEMS ANALYST) Pathologist [facility] Neutrophil abs 5.5 1.5 - 6.5 K/cumm Imm gran abs 0.0 0.0 - 0.1 K/cumm [facility] ([place]) Lymphocyte abs 2.1 0.8 - 3.3 K/cumm [facility] ([place]) Monocyte abs 0.7 0.2 - 0.8 K/cumm [facility] ([place]) Eosinophil abs 0.1 0.0 - 0.5 K/cumm [facility] ([place]) Basophil abs 0.0 0.0 - 0.1 K/cumm [facility] ([place]) Neutrophil pct 65.1 % [facility] ([place]) Comment: Interpretive Data Percent cell count reference ranges are not reported, since discordance with absolute values may lead to misinterpretation of CBC data. Current Interpretive Data was last revised on 2017. Imm gran pct 0.4 % [facility] ([place]) Comment: Interpretive Data Percent cell count reference ranges are not reported, since discordance with absolute values may lead to misinterpretation of CBC data. Current Interpretive Data was last revised on 2017. Lymphocyte pct 24.6 % [facility] ([place]) Comment: Interpretive Data Percent cell count reference ranges are not reported, since discordance with absolute values may lead to misinterpretation of CBC data. Current Interpretive Data was last revised on 2017. Monocyte pct 8.0 % [facility] ([place]) Comment: Interpretive Data Percent cell count reference ranges are not reported, since discordance with absolute values may lead to misinterpretation of CBC data. Current Interpretive Data was last revised on 2017. Eosinophil pct 1.5 % [facility] ([place]) Comment: Interpretive Data Percent cell count reference ranges are not reported, since discordance with absolute values may lead to misinterpretation of CBC data. Current Interpretive Data was last revised on 2017. Basophil pct 0.4 % [facility] ([place]) Comment: Interpretive Data Percent cell count reference ranges are not reported, since discordance with absolute values may lead to misinterpretation of CBC data. Current Interpretive Data was last revised on 2017. Blood 07/18/2024 11:4 2 AM LEAD BUSINESS SYSTEMS ANALYST 07/18/2024 11:51 AM LEAD BUSINESS SYSTEMS ANALYST us Melania CADE LAB BLOOD ORDERABLES Final Result [facility] ([place]) 1 [facility] [place] [address] * (ABNORMAL) CBC with auto differential (07/18/2024 11:42 AM LEAD BUSINESS SYSTEMS ANALYST) WBC 8.4 3.8 - 9.9 K/cumm Hgb 14.0 11.9 - 15.5 g/dL [facility] ([place]) Hct 44.3 35.6 - 45.5 % [facility] ([place]) Plt 359 150 - 400 K/cumm [facility] ([place]) MPV 9.5 9.1 - 12.3 fL [facility] ([place]) RBC 4.64 3.90 - 5.20 M/cumm [facility] ([place]) MCV 95.5 81.3 - 96.4 fL [facility] ([place]) MCH 30.2 27.1 - 33.3 pg [facility] ([place]) MCHC 31.6(L) 32.3 - 35.7 g/dL [facility] ([place]) RDW CV 13.2 11.1 - 14.9 % [facility] ([place]) RDW SD 46.8 35.7 - 48.1 fL [facility] ([place]) NRBC abs 0.00 0.00 - 0.01 K/cumm [facility] ([place]) Blood 07/18/2024 11:4 2 AM LEAD BUSINESS SYSTEMS ANALYST 07/18/2024 11:51 AM LEAD BUSINESS SYSTEMS ANALYST Melania CADE LAB BLOOD ORDERABLES Final Result [facility] ([place]) 1 [facility] [place] [address] * Hemoglobin A1c (07/18/2024 11:42 AM LEAD BUSINESS SYSTEMS ANALYST) Hgb A1C 5.1 4.0 - 5.6 % Estimated Average Glucose 100 mg/dL [facility] ([place]) Comment: The ADA recommends reporting an estimated Average Glucose (eAG) with all Hemoglobin A1c results using the equation derived from a study of 507 normal and diabetic adults. Minority populations were underrepresented and children were not included. (Diabetes Care 31:7323-8450, 2008). The eAG is not equivalent to a fasting glucose. Blood 07/18/2024 11:4 2 AM LEAD BUSINESS SYSTEMS ANALYST 07/18/2024 11:51 AM LEAD BUSINESS SYSTEMS ANALYST Narrative [id number]|2024-10-01 08:38:00|2024-10-01 08:38:00|XMS_ITS|TISHA MOSQUERA|External Medical Summaries|[id number]|" Referral Summary Created on: October 01, 2024 Lizbet Camp : 1975 Sex: Female Author Organization [facility] Address [address] [place] [address] Care Team Providers Care Senior Maintenance Machinist Name Role Phone Semaj Ricardo MD Primary Care Provide r Julian Huang MD Unavailable Encounters Date Type Department Care Team Description 09/20/2024 10:48 AM CDT - 09/20/2024 11:59 PM CDT Hospital Encounter [facility] [address] [place] [phone] Discharge Disposition: Discharge to home or self care 09/20/2024 11:30 AM CDT Office Visit [facility] [address] [place] [address] [place] [phone] Krysta Luo NP Aftercare following right hip joint replacement surgery (Primary Dx) 08/11/2024 11:45 AM CDT Telemedicine [facility] [address] [place] [address] [place] [phone] Melania Zhang PA Aftercare following right hip joint replacement surgery (Primary Dx) 08/10/2024 Telephone [facility] [address] [place] [address] [place] [phone] Melania Zhang PA 08/01/2024 Telephone [facility] Medical [facility] Orthopedics [facility] Sports Medicine [address] [place] [address] [place] [phone] Melania Zhang PA 07/20/2024 8:30 AM LEAD BUSINESS SYSTEMS ANALYST - 07/20/2024 10:55 AM LEAD BUSINESS SYSTEMS ANALYST Surgery [facility] Operating Room [address] [place] [address] Julian Huang MD Right Total Hip Arthroplasty 07/20/2024 8:27 AM LEAD BUSINESS SYSTEMS ANALYST Anesthesia Event [facility] [address] [place] [address] Juana Hoang MD [place]kafor, Emenike Adolphus Jr., MD 07/20/2024 6:55 AM LEAD BUSINESS SYSTEMS ANALYST - 07/20/2024 4:20 PM LEAD BUSINESS SYSTEMS ANALYST Hospital Encounter [facility] Operating Room [address] [place] [address] Julian Huang MD Avascular necrosis of bone of right hip (HCC) (Primary Dx) Discharge Disposition: Discharge to home or self care 07/18/2024 11:00 AM LEAD BUSINESS SYSTEMS ANALYST Lab [address] [phone] Right hip pain; Pre-operative exam 07/12/2024 Telephone [facility] [address] [place] [phone] Neha Hatfield MA surgery 07/11/2024 10:10 AM LEAD BUSINESS SYSTEMS ANALYST Lab [address] [phone] Avascular necrosis of bone of right hip (HCC) 07/11/2024 10:04 AM LEAD BUSINESS SYSTEMS ANALYST - 07/11/2024 11:59 PM LEAD BUSINESS SYSTEMS ANALYST Hospital Encounter [facility] [address] [place] [address] Pre-operative exam Discharge Disposition: Discharge to home or self care 07/11/2024 10:03 AM LEAD BUSINESS SYSTEMS ANALYST - 07/11/2024 11:59 PM LEAD BUSINESS SYSTEMS ANALYST Hospital Encounter [facility] Cardiology [address] [place] [address] Right hip pain; Pre-operative exam Discharge Disposition: Discharge to home or self care from Last 3 Months Allergies No known active allergies Medications levothyroxine (SYNTHROID) 88 mcg tablet Take 1 tablet (88 mcg total) by mouth quality control coordinator before breakfast Active levothyroxine (SYNTHROID) 100 mcg tablet Take 1 tablet (100 mcg total) by mouth quality control coordinator before breakfast Active lisinopriL (PRINIVIL,ZEST RIL) 10 mg tablet Take 1 tablet (10 mg total) by mouth every morning Active aspirin 81 mg enteric coated tablet Take 1 tablet (81 mg total) by mouth 2 (two) times a day 84 tablet 5 025 Discontin ued(Patie nt Reported) celecoxib (CeleBREX) 200 mg capsuleIndicat ions:Postopera tive Acute Pain Take 1 capsule (200 mg total) by mouth 2 (two) times a day 84 capsule 5 025 Discontin ued(Patie nt Reported) ondansetron (ZOFRAN) 8 mg tabletIndicati ons:Prevention of Post-Operative Nausea and Vomiting Take 1 tablet (8 mg total) by mouth every 8 (eight) hours as needed for nausea or vomiting 20 tablet 2 5 025 Discontin ued(Patie nt Reported) senna-docusate (PERICOLACE) 8.6-50 mg Take 1 tablet by mouth 2 (two) times a day as needed for constipation 60 tablet 2 5 025 Discontin ued(Patie nt Reported) oxyCODONE-acet aminophen (PERCOCET) 5-325 mg per tabletIndicati ons:Pain Take 1-2 tablets by mouth every 4 (four) hours as needed for pain 40 tablet 5 025 Discontin ued(Patie nt Reported) Active Problems Problem Noted Date Diagnosed Date Aftercare following right hip joint replacement surgery 08/10/2024 Resolved Problems Problem Noted Date Diagnosed Date Resolved Date Avascular necrosis of bone of right hip 07/11/2024 08/10/2024 Social History Tobacco Use Types Packs/Day Years Used Date Smoking Tobacco: Never Smokeless Tobacco: Never Tobacco Cessation:Counseling Given: Not Answered AUDIT-C Answer Date Recorded Q1: How often do you have a drink containing alc ohol? Monthly or less 07/20/2024 Q2: How many drinks containi ng alcohol do you have on a typical day when you are drinking? 1 or 2 07/20/2024 Q3: How often do you have si x or more drinks on one occasion? Never 07/20/2024 Personal Safety Answer Date Recorded Have you ever been in or are you currently in a harmful physical or emotional relationship or is someone making you feel afraid or unsafe? Denies 07/20/2024 Comments No Sex and Gender Information Value Date Recorded Sex Assigned at Not on file Legal Sex Female 3:56 AM CDT Gender Identity Not on file Sexual Orientation Not on file Last Filed Vital Signs Vital Sign Reading Time Taken Comments Blood Pressure 150/101 09/20/2024 11:32 AM CDT Pulse 96 09/20/2024 11:32 AM CDT Temperature 36.3 C (97.4 F) 07/20/2024 4:06 PM LEAD BUSINESS SYSTEMS ANALYST Respiratory Rate 18 07/20/2024 4:06 PM LEAD BUSINESS SYSTEMS ANALYST Oxygen Saturation 97% 07/20/2024 4:06 PM LEAD BUSINESS SYSTEMS ANALYST Inhaled Oxygen Concentration - - Weight 80.3 kg (177 lb) 09/20/2024 11:32 AM CDT Height 160 cm (5' 3 ) 09/20/2024 11:32 AM CDT Body Mass Index 31.35 09/20/2024 11:32 AM CDT Plan of Treatment Not on file Medical Devices Implanted Type Area Grocery Department Manager Device Identifier Shelf Expiration Date Model / Serial / Lot [employer] Cuney 6.5mm 35mm Acetabular Cancellous Screw Bone Sterile 1217-35-500 - [id number] Implanted:Qty: 1 on 07/20/2024 by Julian Huang MD at [facility] Right: Hip [employer] [id number] 04/16/2034 1217-35-500 / / [id number] [employer] Shell Acetabular Hip Porous 3 Hole Coated Emphasys 50mm Titanium [id number] - [id number] Implanted:Qty: 1 on 07/20/2024 by Julian Huang MD at [facility] Right: Hip [employer] [id number] 05/17/2034 [id number] / / [id number] [employer] Liner Acetabular Hip Standard Emphasys Aox 06t42wq Polyethylene [id number] - [id number] Implanted:Qty: 1 on 07/20/2024 by Julian Huang MD at [facility] Right: Hip [employer] [id number] 04/16/2029 [id number] / / [id number] [employer] Actis Collared Hip 04/30 3 Standard Offset Stem Femoral [id number] - [id number] Implanted:Qty: 1 on 07/20/2024 by Julian Huang MD at [facility] Right: Hip [employer] [id number] 01/15/2034 [id number] / / [id number] [employer] Articul/Ted 36mm Cementless Hip +5mm 04/30 Taper Head Femoral Latex Free [id number] - [id number] Implanted:Qty: 1 on 07/20/2024 by Julian Huang MD at [facility] Right: Hip [employer] [id number] 02/14/2029 [id number] / / [id number] Procedures Procedure Name Priority Date/Time Associated Diagnosis Comments XR HIP RIGHT 2 OR 3 VIEWS Schedule Routine, Read Routine (OP Routine) 09/20/2024 11:29 AM CDT Aftercare following right hip joint replacement surgery SURGICAL PATHOLOGY Routine 07/20/2024 1: 04 PM LEAD BUSINESS SYSTEMS ANALYST Avascular necrosis of bone of right hip (HCC) XR PELVIS ORTHO VIEW ED Urgent/IP Urgent 07/20/2024 10:36 AM LEAD BUSINESS SYSTEMS ANALYST FL FLUOROSCOPY < 1 HOUR IP Routine 07/20/2024 10:00 AM LEAD BUSINESS SYSTEMS ANALYST XR HIP RIGHT 1 VIEW IP Routine 07/20/2024 1 0:00 AM LEAD BUSINESS SYSTEMS ANALYST ANESTHESIA SPINAL BLOCK Routine 07/20/2024 8:42 AM LEAD BUSINESS SYSTEMS ANALYST ARTHROPLASTY TOTAL HIP - ANTERIOR APPROACH 07/20/2024 8:07 AM LEAD BUSINESS SYSTEMS ANALYST Avascular necrosis of bone of right hip (HCC) Special Needs Anterior Approach, [Depuy- Actis], Omnitrac, Aquamantys, 1 liter beta rinse, Pt to go home APTT STAT 07/20/2024 7:26 AM LEAD BUSINESS SYSTEMS ANALYST PROTIME-INR STAT 07/20/2024 7:26 AM LEAD BUSINESS SYSTEMS ANALYST POCT HCG, URINE Routine 07/20/2024 7:16 AM LEAD BUSINESS SYSTEMS ANALYST URINALYSIS AND REFLEX TO MICROSCOPIC AND CULTURE Routine 07/18/2024 11:45 AM LEAD BUSINESS SYSTEMS ANALYST Right hip pain Pre-operative exam EGFR Routine 07/18/2024 11:42 AM LEAD BUSINESS SYSTEMS ANALYST Right hip pain Pre-operative exam DIFFERENTIAL AUTO Routine 07/18/2024 11: 42 AM LEAD BUSINESS SYSTEMS ANALYST Right hip pain Pre-operative exam CBC WITH AUTO DIFFERENTIAL Routine 07/18/2024 11:42 AM LEAD BUSINESS SYSTEMS ANALYST Right hip pain Pre-operative exam COMPREHENSIVE METABOLIC PANEL Routine 07/18/2024 11:42 AM LEAD BUSINESS SYSTEMS ANALYST Right hip pain Pre-operative exam HEMOGLOBIN A1C Routine 07/18/2024 11:42 AM LEAD BUSINESS SYSTEMS ANALYST Right hip pain Pre-operative exam XR CHEST PA LATERAL 2 VIEWS Schedule Routine, Read Routine (OP Routine) 07/11/2024 10:42 AM LEAD BUSINESS SYSTEMS ANALYST Pre-operative exam ECG 12-LEAD Routine 07/11/2024 10:33 AM LEAD BUSINESS SYSTEMS ANALYST Right hip pain Pre-operative exam PROTIME-INR Routine 07/11/2024 10:12 AM LEAD BUSINESS SYSTEMS ANALYST Avascular necrosis of bone of right hip (HCC) APTT Routine 07/11/2024 10:12 AM LEAD BUSINESS SYSTEMS ANALYST Avascular necrosis of bone of right hip (HCC) from Last 3 Months Results * XR Hip Right 2 or 3 Views (09/20/2024 11:29 AM CDT) Anatomical Region Laterality Modality Lower Extremities, Hip, Pelvis Right D igital Radiography Narrative 09/20/2024 11:33 AM CDT Radiographs taken of the right hip today reveal a total hip arthroplasty in appropriate position with no interval change from the time of surgery. us Krysta Luo PRECISION LATHE OPERATOR IMG XR PROCEDURES Final Result * Surgical pathology (07/20/2024 1:04 PM LEAD BUSINESS SYSTEMS ANALYST) Tissue specimen (specimen) (Bone Fragment(s),) 07/20/2024 9:12 AM LEAD BUSINESS SYSTEMS ANALYST Narrative PATHOLOGY [facility] ([place]) - 07/22/2024 6:14 PM LEAD BUSINESS SYSTEMS ANALYST EPIC results best viewed via link to PDF [facility] Department of Pathology [address] [place] [address] Note to Patients: This report may contain a detailed description of human tissue sent by a health care provider to the laboratory for pathologic evaluation. The content of this report is essential for diagnosis and may provide important critical findings. This information may be unfamiliar to patients to review without a medical professional present. It is advised that the patient review this report in the presence of a health care provider who can answer questions and explain the details. Final Report Patient Name: LIZBET CAMP Address: [address] [place] [address] Gender: F : 1975 (Age: 48) Service: Surgery Location: [facility] Hospital #: [id number] Patient Type: [facility] Taken: 07/20/2024 Received: 07/20/2024 Accessioned: 07/20/2024 Reported: 07/22/2024 Physician(s):Dr. Julian Huang M.D. Diagnosis: A. Right hip, total arthroplasty- Changes consistent with avascular necrosis Germania Almodovar M.D. Report Electronically Reviewed and Signed Out By Germania Almodovar M.D. 07/22/2024 18:14:34 Specimen(s) Received: A: right hip bone and tissue fragments Microscopic Description: Microscopic examination corroborates the diagnosis. Clinical History: Avascular necrosis of bone of right hip ([facility]) [M87.051] Right total hip arthroplasty Gross Description: The specimen is received in a single container labeled LIZBET CAMP and right hip . It is a 5.3 cm in diameter femoral head and separate 15 cc aggregate of bonner gritty hemorrhagic cortical and cancellous bone. The articular surface of the femoral head is flattened and deformed. It shows degenerative changes of the cartilage with erosion and eburnation. The femoral neck margin is smooth. The specimen is bisected revealing no subchondral gross lesions. Toll Line Mechanic sections are submitted in one cassette after decalcification. Inocencia Potts R.N., PAntony./Germania Almodovar M.D. REPORT IMAGES AND SCANNED DOCUMENTS, IF INCLUDED, ONLY VIEWABLE IN PDF VERSION OF REPORT The performance characteristics of some immunohistochemical stains, fluorescence in-situ hybridization tests and immunophenotyping by flow cytometry cited in this report (if any) were determined by the Surgical Pathology Department at [facility] as part of an ongoing quality assurance inspector program and in compliance with federally mandated regulations drawn from the Clinical Laboratory Improvement Act of 1988 (CLIA '88). Some of these tests rely on the use of analyte specific reagents and are subject to specific labeling requirements by the US Food and Drug Administration. Such diagnostic tests may only be performed in a facility that is certified by the Department of Health and Human Services as a high complexity laboratory under CLIA '88. The FDA has determined that such clearance or approval is not necessary. This test is used for clinical purposes. It should not be regarded as investigational or for research. Nevertheless, federal rules concerning the medical use of analyte specific reagents require that the following disclaimer be attached to the report: This test was developed and its performance characteristics determined by the Surgical Pathology Department [facility]. It has not been cleared or approved by the U. S. Food and Drug Administration. Note for decalcified specimens: This assay has not been validated on decalcified tissues. Results should be interpreted with caution given the possibility of false negativity on decalcified specimens us Julian Huang MD LAB PATHOLOGY ORDERABLES Final Result [facility] ([place]) [address] [place] [address] * XR Pelvis Ortho View (07/20/2024 10:36 AM LEAD BUSINESS SYSTEMS ANALYST) Anatomical Region Laterality Modality Body, Pelvis N/A Computed Radiogr aphy 07/20/2024 11:2 8 AM LEAD BUSINESS SYSTEMS ANALYST Narrative 07/20/2024 11:29 AM LEAD BUSINESS SYSTEMS ANALYST EXAM DESCRIPTION: XR PELVIS ORTHO VIEW REASON FOR STUDY: Pre-Surgery or Post-Surgery Health Examination Post op right hip TECHNIQUE: Single frontal radiographic view(s) of the pelvis . COMPARISON: Pelvis/right hip radiographs dated 04/28/2024. FINDINGS: The right total hip arthroplasty instrumentation is new when compared to the previous right hip radiographs dated 04/28/2024. Adjacent soft tissue swelling and air is likely postoperative in nature. There are pelvic phleboliths. IMPRESSION: Right total hip arthroplasty related changes are new when compared to the previous right knee radiographs dated 04/28/2024. THIS IS AN ELECTRONICALLY VERIFIED FINAL REPORT 07/20/2024 11:29 AM - Electronically signed by Haim Cardona D.O. AP: AP Report ID: [id number] Reading Location: [id number] Procedure Note Haim Cardona DO - 07/20/2024 EXAM DESCRIPTION: XR PELVIS ORTHO VIEW REASON FOR STUDY: Pre-Surgery or Post-Surgery Health Examination Post op right hip TECHNIQUE: Single frontal radiographic view(s) of the pelvis . COMPARISON: Pelvis/right hip radiographs dated 04/28/2024. FINDINGS: The right total hip arthroplasty instrumentation is new when compared tothe previous right hip radiographs dated 04/28/2024. Adjacent soft tissue swelling and air is likely postoperative in nature. There are pelvic phleboliths. IMPRESSION: Right total hip arthroplasty related changes are new when compared to the previous right knee radiographs dated 04/28/2024. THIS IS AN ELECTRONICALLY VERIFIED FINAL REPORT 07/20/2024 11:29 AM - Electronically signed by Haim Cardona D.O. AP: AP Report ID: [id number] Reading Location: [id number] Julian Huang MD IMG XR PROCEDURES Final Result * FL Fluoroscopy < 1 Hour (07/20/2024 10:00 AM LEAD BUSINESS SYSTEMS ANALYST) Narrative [facility] - 07/20/2024 10:01 AM LEAD BUSINESS SYSTEMS ANALYST The images from this study are not interpreted by Radiology. Please refer to the physician's procedure / OR operative note. Julian Huang MD IMG FLUOROSCOPY PROCEDUR ES Final Result [facility] * XR Hip Right 1 View (07/20/2024 10:00 AM LEAD BUSINESS SYSTEMS ANALYST) Anatomical Region Laterality Modality Lower Extremities, Hip, Pelvis Right R adio Fluoroscopy 07/23/2024 3:32 PM LEAD BUSINESS SYSTEMS ANALYST Narrative 07/23/2024 3:33 PM LEAD BUSINESS SYSTEMS ANALYST EXAM DESCRIPTION: XR HIP RIGHT 1 VIEW REASON FOR STUDY: pain Fluoro 13.2 mGy 1.32 FINDINGS: Multiple fluoroscopic images consisting of a single view(s) submitted with comparison 04/28/2024 . Dose area product equals [id number] mGym*2. Fluoroscopic images demonstrate an in progress right total hip arthroplasty placement . Soft tissue gas is present. IMPRESSION: In progress right total hip arthroplasty placement. THIS IS AN ELECTRONICALLY VERIFIED FINAL REPORT 07/23/2024 3:33 PM - Electronically signed by Richard Mejía M.D. MF: CODY Report ID: [id number] Reading Location: [id number] Procedure Note Richard Mejía MD - 07/23/2024 EXAM DESCRIPTION: XR HIP RIGHT 1 VIEW REASON FOR STUDY: pain Fluoro 13.2 mGy 1.32 FINDINGS: Multiple fluoroscopic images consisting of a single view(s) submittedwith comparison 04/28/2024 . Dose area product equals 0.94830 mGym*2. Fluoroscopic images demonstrate an in progress right total hiparthroplasty placement . Soft tissue gas is present. IMPRESSION: In progress right total hip arthroplasty placement. THIS IS AN ELECTRONICALLY VERIFIED FINAL REPORT 07/23/2024 3:33 PM - Electronically signed by Richard Mejía M.D. MF: CODY Report ID: [id number] Reading Location: [place] [address] Julian Huang MD IMG XR PROCEDURES Final Result * Spinal Block (07/20/2024 8:42 AM LEAD BUSINESS SYSTEMS ANALYST) Narrative Kermit Khan CRNA - 07/20/2024 8:42 AM LEAD BUSINESS SYSTEMS ANALYST Kermit Khan CRNA 07/20/2024 8:43 AM Spinal Block Patient location: OR End time: 07/20/2024 8:35 AM Reason for block: primary anesthetic Staff: Supervising provider: Juana Hoang MD Placed by: COMMISSION AUDITOR:Kermit Khan CRNA Procedure prep: Preprocedure checklist: patient identified, procedure contraindications assessed, site marked, procedure consent, surgical consent, IV checked, risks, benefits and alternatives discussed, monitors and equipment checked and timeout performed Patient position: sitting Procedure performed while patient: sedate with meaningful contact Monitoring: oximetry and blood pressure Prep solution: chlorhexadine/alcohol PPE: provider hat/mask, sterile gloves and sterile drape Skin infiltrated with lidocaine 1%: yes Spinal: Approach: midline Introducer used: yes Location: L3-4 Spinal injection: CSF demonstrated, no aspiration of heme and no paresthesias noted Number of attempts: 2 Other sites attempted: l3-4 Spinal Needle: Needle type: Cecilia Needle gauge: 22 G Needle length: 5 cm Assessment: Sensory deficit - left: full eval pending Sensory deficit - right: full eval pending Events: patient tolerated procedure well with no complications us Juana Hoang MD ANESTHESIA ORDERABLES Fi nal Result * aPTT (07/20/2024 7:26 AM LEAD BUSINESS SYSTEMS ANALYST) aPTT 35 28 - 38 sec [facility] ([place]) Comment: Interpretive Data Heparin therapeutic range: 66.0 - 100.0 seconds. Range based on correlation with therapeutic heparin activity range of 0.3 - 0.7 Units/mL. Current interpretive data was last revised on 2023. Blood 07/20/2024 7:26 AM LEAD BUSINESS SYSTEMS ANALYST 07/20/2024 7:27 AM LEAD BUSINESS SYSTEMS ANALYST Julian Huang MD LAB BLOOD ORDERABLES Fin al Result Performing Organization Address City/[facility] Co de Phone Number [facility] ([place]) 1 [facility] [place] [address] * Protime-INR (07/20/2024 7:26 AM LEAD BUSINESS SYSTEMS ANALYST) PT 10.4 9.7 - 13.0 sec [facility] INR 0.96 0.90 - 1.20 [facility] Comment: Interpretive data Oral anticoagulant therapeutic ranges: Venous thromboembolism prophylaxis or treatment: 2.0-3.0 CARDIOLOGY Standard range: 2.0-3.0 High-intensity range: 2.5-3.5 Refer to indication-specific guidelines for appropriate target ranges for prosthetic heart valve replacement. Current interpretive data was last revised on 2019. Blood 07/20/2024 7:26 AM LEAD BUSINESS SYSTEMS ANALYST 07/20/2024 7:27 AM LEAD BUSINESS SYSTEMS ANALYST us Julian Huang MD LAB BLOOD ORDERABLES Fin al Result Performing Organization Address City/[facility] Co de Phone Number [facility] ([place]) 1 [facility] [place] [address] * POCT hCG, urine (07/20/2024 7:16 AM LEAD BUSINESS SYSTEMS ANALYST) HCG, ur, POC Negative Negative Lot Number [id number] QC Backgroud Clear Acceptable QC Control Line Acceptable Urine 07/20/2024 7:16 AM LEAD BUSINESS SYSTEMS ANALYST Maylin Cedeno Jr., MD POINT OF CARE TE ST ORDERABLES Final Result * Urinalysis reflex to microscopic and culture Urine (07/18/2024 11:45 AM LEAD BUSINESS SYSTEMS ANALYST) Color, ur Yellow Yellow Clarity, ur Clear Clear [facility] ([place]) Specific gravity, ur 1.020 1.003 - 1.030 [facility] ([place]) pH, urine 8.0 [facility] ([place]) Comment: Interpretive Data U rine pH is affected by diet, medications, systemic acid-base disturbances, and renal tubular function. pH may affect urinary stone formation. For example, urine pH below 6.0 may help reduce the tendency for calcium phosphate stones and pH greater than 6.0 may reduce the tendency for uric acid stone formation. Source: [facility] Current Interpretive Data was last revised on 2017 Protein, ur ql Trace Negative [facility] ([place]) Glucose, ur ql Negative Negative [facility] ([place]) Ketones, ur Negative Negative [facility] ([place]) Bilirubin, ur Negative Negative [facility] ([place]) Blood, ur Negative Negative [facility] ([place]) Urobilinogen, ur <2.0 <2.0 mg/dL [facility] ([place]) Nitrite, ur Negative Negative [facility] ([place]) Leukocyte esterase, ur Negative Negative [facility] ([place]) UA reflex comment Reflex conditions for microscopic UA and culture not met. [facility] ([place]) Urine 07/18/2024 11:4 5 AM LEAD BUSINESS SYSTEMS ANALYST 07/18/2024 11:52 AM LEAD BUSINESS SYSTEMS ANALYST Melania CADE LAB MICROBIOLOGY - NERAL ORDERABLES Final Result [facility] ([place]) 1 [facility] [place] [address] * eGFR (07/18/2024 11:42 AM LEAD BUSINESS SYSTEMS ANALYST) eGFR >90 >=60 mL/min/1. 73 m2 Comment: Interpretive Data Reference Interval Normal >/= 90 mL/min/1.73m2 Mildly decreased* 60 - 89 mL/min/1.73m2 Mildly to moderately decreased 45 - 59 mL/min/1.73m2 Moderately to severely decreased 30 - 44 mL/min/1.73m2 Severely decreased 15 - 29 mL/min/1.73m2 Kidney Failure < 15 mL/min/1.73m2 *Relative to young adult level Estimated glomerular filtration rate is determined by the 2020 CKD-EPI equation recommended by the National Kidney Foundation (A Unifying Approach to GFR Estimation: Recommendations of the NKF-ASK Task Force on Reassessing the Inclusion of Race in Diagnosing Kidney Disease, JASN 2020). The CKD-EPI equation should not be used for patients with unstable renal function and has not been validated in children and those over 70. Current interpretive data was last reviewed 2021. Blood 07/18/2024 11:4 2 AM LEAD BUSINESS SYSTEMS ANALYST 07/18/2024 11:51 AM LEAD BUSINESS SYSTEMS ANALYST us Melania CADE LAB BLOOD ORDERABLES Final Result [facility] ([place]) 1 [facility] [place] [address] * Differential, auto (07/18/2024 11:42 AM LEAD BUSINESS SYSTEMS ANALYST) Neutrophil abs 5.5 1.5 - 6.5 K/cumm Imm gran abs 0.0 0.0 - 0.1 K/cumm [facility] ([place]) Lymphocyte abs 2.1 0.8 - 3.3 K/cumm [facility] ([place]) Monocyte abs 0.7 0.2 - 0.8 K/cumm [facility] ([place]) Eosinophil abs 0.1 0.0 - 0.5 K/cumm [facility] ([place]) Basophil abs 0.0 0.0 - 0.1 K/cumm [facility] ([place]) Neutrophil pct 65.1 % [facility] ([place]) Comment: Interpretive Data Percent cell count reference ranges are not reported, since discordance with absolute values may lead to misinterpretation of CBC data. Current Interpretive Data was last revised on 2017. Imm gran pct 0.4 % [facility] ([place]) Comment: Interpretive Data Percent cell count reference ranges are not reported, since discordance with absolute values may lead to misinterpretation of CBC data. Current Interpretive Data was last revised on 2017. Lymphocyte pct 24.6 % [facility] ([place]) Comment: Interpretive Data Percent cell count reference ranges are not reported, since discordance with absolute values may lead to misinterpretation of CBC data. Current Interpretive Data was last revised on 2017. Monocyte pct 8.0 % [facility] ([place]) Comment: Interpretive Data Percent cell count reference ranges are not reported, since discordance with absolute values may lead to misinterpretation of CBC data. Current Interpretive Data was last revised on 2017. Eosinophil pct 1.5 % [facility] ([place]) Comment: Interpretive Data Percent cell count reference ranges are not reported, since discordance with absolute values may lead to misinterpretation of CBC data. Current Interpretive Data was last revised on 2017. Basophil pct 0.4 % [facility] ([place]) Comment: Interpretive Data Percent cell count reference ranges are not reported, since discordance with absolute values may lead to misinterpretation of CBC data. Current Interpretive Data was last revised on 2017. Blood 07/18/2024 11:4 2 AM LEAD BUSINESS SYSTEMS ANALYST 07/18/2024 11:51 AM LEAD BUSINESS SYSTEMS ANALYST us Melania CADE LAB BLOOD ORDERABLES Final Result [facility] ([place]) 1 [facility] [place] [address] * (ABNORMAL) CBC with auto differential (07/18/2024 11:42 AM LEAD BUSINESS SYSTEMS ANALYST) WBC 8.4 3.8 - 9.9 K/cumm Hgb 14.0 11.9 - 15.5 g/dL [facility] ([place]) Hct 44.3 35.6 - 45.5 % [facility] ([place]) Plt 359 150 - 400 K/cumm [facility] ([place]) MPV 9.5 9.1 - 12.3 fL [facility] ([place]) RBC 4.64 3.90 - 5.20 M/cumm [facility] ([place]) MCV 95.5 81.3 - 96.4 fL [facility] ([place]) MCH 30.2 27.1 - 33.3 pg [facility] ([place]) MCHC 31.6(L) 32.3 - 35.7 g/dL [facility] ([place]) RDW CV 13.2 11.1 - 14.9 % [facility] ([place]) RDW SD 46.8 35.7 - 48.1 fL [facility] ([place]) NRBC abs 0.00 0.00 - 0.01 K/cumm [facility] ([place]) Blood 07/18/2024 11:4 2 AM LEAD BUSINESS SYSTEMS ANALYST 07/18/2024 11:51 AM LEAD BUSINESS SYSTEMS ANALYST Melania CADE LAB BLOOD ORDERABLES Final Result Performing Organization Address City/[facility] Co de Phone Number [facility] ([place]) [address] [place] [address] [place] [address] * Hemoglobin A1c (07/18/2024 11:42 AM LEAD BUSINESS SYSTEMS ANALYST) Pathologist [facility] Hgb A1C 5.1 4.0 - 5.6 % Estimated Average Glucose 100 mg/dL [facility] ([place]) Comment: The ADA recommends reporting an estimated Average Glucose (eAG) with all Hemoglobin A1c results using the equation derived from a study of 507 normal and diabetic adults. Minority populations were underrepresented and children were not included. (Diabetes Care 31:3904-5016, 2008). The eAG is not equivalent to a fasting glucose. Blood 07/18/2024 11:4 2 AM LEAD BUSINESS SYSTEMS ANALYST 07/18/2024 11:51 AM LEAD BUSINESS SYSTEMS ANALYST Melania CADE LAB BLOOD ORDERABLES Final Result Performing Organization Address City/[facility]/ZIP Co de Phone Number [facility] ([place]) 1 [facility] [place] [address] * Comprehensive metabolic panel (07/18/2024 11:42 AM LEAD BUSINESS SYSTEMS ANALYST) Sodium 142 135 - 145 mmol/L Potassium, pl 4.4 3.3 - 4.9 mmol/L [facility] ([place]) Chloride 107 97 - 110 mmol/L [facility] ([place]) CO2 27 22 - 32 mmol/L [facility] ([place]) Anion gap 9 2 - 15 mmol/L [facility] ([place])
--- OUTSIDE RECORDS SUMMARY | 2024-10-01 08:38 | XMS_ITS | Clinical Summary ---
Author Organization [facility] [employer] Address [facility] [place] [address] Care Team Providers Care Tap Dancer Name Role Phone Unavailable Primary Care Provider Unavailabl e Source Comments [facility] [employer],non-owned Affiliates and Associated Physician Practices is amultiple site organization consisting of ambulatory clinics and hospital sitesin [place], [place], [place] and [place]. This disclosure is being madepursuant to the Care Everywhere program and may not contain all information available regarding this patient. Last updated 18.VEASYT [employer] Allergies No known active allergies Medications * Be aware that medications may not be up to date on this document. Alwaysverify current medications with the patient. levothyroxine (SYNTHROID) 88 MCG tablet Take 1 (one) tablet by mouth daily before breakfast Active levothyroxine (SYNTHROID) 100 MCG tablet Take 1 (one) tablet by mouth daily before breakfast Active FLUoxetine (PROZAC) 40 MG capsule Take 1 (one) capsule by mouth once daily Active acetaminophen (TYLENOL) 325 MG tablet Take 2 (two) tablets by mouth every 6 hours as needed for Fever or Pain Maximum allowable Acetaminophen amount = 4 Grams (4000 mg) / 24 hours. 2 Active lidocaine (LIDODERM) 5 % patch Apply 1 (one) patch to skin every 24 hours 2 Active oxyCODONE, immediate release, (ROXICODONE) 5 MG tablet Take 1 (one) tablet by mouth every 6 hours as needed for Pain 12 tablet 2 Active senna (SENOKOT) 8.6 MG tablet Take 1 (one) tablet by mouth once daily 30 tablet 2 Active cyclobenzaprin e (FLEXERIL) 10 MG tablet Take 1 (one) tablet by mouth 3 times daily as needed 20 tablet 2 Active Active Problems Problem Noted Date Diagnosed Date Trauma 07/29/2021 Kidney laceration, left, initial encounter 07/29 Social History Tobacco Use Types Packs/Day Years Used Date Smoking Tobacco: Former Smokeless Tobacco: Never Comments:quit 2 weeks ago Alcohol Use Standard Drinks/Week Comments Yes 3 (1 standard drink = 0.6 oz pur e alcohol) 2-3 beers per day AUDIT-C Answer Date Recorded Q1: How often do you have a drink containing alc ohol? 2-3 times a week 07/29/2021 Q2: How many drinks containi ng alcohol do you have on a typical day when you are drinking? 3 or 4 07/29/2021 Q3: How often do you have si x or more drinks on one occasion? Never 07/29/2021 Hunger Vital Sign Answer Date Recorded Within the past 12 months, y ou worried that your food would run out before you got the money to buy more. Never true 07/31/19 22 Within the past 12 months, t he food you bought just didn't last and you didn't have money to get more. Never true 07/30/2021 Comments Unknown Sex and Gender Information Value Date Recorded Sex Assigned at Not on file Legal Sex Female 6:02 PM CDT Gender Identity Not on file Sexual Orientation Not on file Last Filed Vital Signs Vital Sign Reading Time Taken Comments Blood Pressure 122/76 07/31/2021 12:33 PM CDT Pulse 75 07/31/2021 12:33 PM CDT Temperature 36.7 C (98 F) 07/31/2021 12:33 PM CDT Respiratory Rate 17 07/31/2021 12:33 PM CDT Oxygen Saturation 100% 07/31/2021 12:33 PM CDT Inhaled Oxygen Concentration - - Weight 65.8 kg (145 lb) 07/29/2021 6:16 PM CDT Height 160 cm (5' 3 ) 07/29/2021 6:16 PM CDT Body Mass Index 25.69 07/29/2021 6:16 PM CDT Plan of Treatment Health Maintenance Due Date Last Done Comments COLOGUARD (AGES 45-75) - COL ON CA SCREENING 1976 COLON MONITORING 1976 COLONOSCOPY - COLON CA SCREENING 1976 CT COLONOGRAPHY - COLON CA SCREENING 1976 Colorectal Cancer Screening 1976 FIT - COLON CA SCREENING 1976 FLEX SIG - COLON CA SCREENING 1976 LIPID TESTING 1976 MAMMOGRAM 1976 PAP SMEAR 1976 HIV SCREENING 08/27/1991 HEPATITIS C SCREENING 08/22/1994 DTAP/TDAP/TD VACCINES (1 - Tdap) 08/27/1995 HEPATITIS B VACCINE (1 of 3 - 19+ 3-dose series) 08/27/1995 COVID-19 VACCINE (1 - 2023-2 5 season) 2024 DEPRESSION SCREENING 05/18/2024 INFLUENZA VACCINE (Season Ended) 2025 ZOSTER VACCINE (1 of 2) 2026 HIB VACCINE Aged Out No longer eligi ble based on patient's age to complete this topic HPV VACCINE Aged Out No longer eligi ble based on patient's age to complete this topic MENINGOCOCCAL (Group B) VACC INE SHARED DECISION-MAKING Aged Out No longer eligibl e based on patient's age to complete this topic MENINGOCOCCAL GROUPS A/C/Y/W VACCINE Aged Out No longer eligible b ased on patient's age to complete this topic PNEUMOCOCCAL VACCINE Aged Out No long er eligible based on patient's age to complete this topic Insurance [id number] [place] [address] [facility] Advance Directives * Full Code (Latest Code Status on File) Date Activated Date Inactivated Comments 07/29/2021 7:53 PM 07/31/2021 3:16 PM
--- OUTSIDE RECORDS SUMMARY | 2024-10-01 08:38 | XMS_ITS | Continuity of Care Document ---
Author Organization [employer] [place] Address [address] [place] [address] [address] [place] [address] Phone Care Team Providers Care Bartacker Name Role Phone Marilyn Rhonda MUÑOZ Unavailable Unavailable Procedures Procedure Date PT Re-evaluation Therapeutic Exercise Therapeutic Activities Manual Therapy Hot or Cold Pack Electrical Stimulation Therapeutic Exercise Therapeutic Activities Manual Therapy Hot or Cold Pack Therapeutic Exercise Manual Therapy Hot or Cold Pack Electrical Stimulation Therapeutic Exercise Therapeutic Activities Manual Therapy Hot or Cold Pack Therapeutic Exercise Manual Therapy Hot or Cold Pack Electrical Stimulation Therapeutic Exercise Therapeutic Activities Manual Therapy Hot or Cold Pack Progress Note Therapeutic Exercise Therapeutic Activities Manual Therapy Hot or Cold Pack Electrical Stimulation Therapeutic Exercise Manual Therapy Hot or Cold Pack Electrical Stimulation Therapeutic Exercise Therapeutic Activities Manual Therapy Hot or Cold Pack Electrical Stimulation Therapeutic Exercise Manual Therapy Hot or Cold Pack Electrical Stimulation Therapeutic Exercise Therapeutic Activities Manual Therapy Hot or Cold Pack Electrical Stimulation PT Evaluation Moderate Complexity Therapeutic Exercise Manual Therapy Hot or Cold Pack Electrical Stimulation Therapeutic Exercise Therapeutic Activities Manual Therapy Hot or Cold Pack Therapeutic Exercise Therapeutic Activities Manual Therapy Hot or Cold Pack Therapeutic Exercise Therapeutic Activities Manual Therapy Hot or Cold Pack Therapeutic Exercise Therapeutic Activities Manual Therapy Hot or Cold Pack Therapeutic Exercise Therapeutic Activities Manual Therapy Hot or Cold Pack MUSHROOM SPAWN MAKER Acute Therapeutic Exercise Therapeutic Activities Manual Therapy Hot or Cold Pack Therapeutic Exercise Therapeutic Activities Manual Therapy Therapeutic Exercise Therapeutic Activities Manual Therapy Therapeutic Exercise Therapeutic Activities Manual Therapy Hot or Cold Pack Therapeutic Exercise Therapeutic Activities Manual Therapy Hot or Cold Pack Progress Note Therapeutic Exercise Therapeutic Activities Manual Therapy Therapeutic Exercise Therapeutic Activities Manual Therapy Hot or Cold Pack Therapeutic Exercise Therapeutic Activities Manual Therapy Hot or Cold Pack Therapeutic Exercise Therapeutic Activities Manual Therapy Therapeutic Exercise Therapeutic Activities Manual Therapy Hot or Cold Pack Therapeutic Exercise Therapeutic Activities Manual Therapy Hot or Cold Pack Therapeutic Exercise Therapeutic Activities Manual Therapy Hot or Cold Pack Progress Note Therapeutic Exercise Manual Therapy Hot or Cold Pack Therapeutic Exercise Therapeutic Activities Manual Therapy Hot or Cold Pack Therapeutic Exercise Therapeutic Activities Manual Therapy Hot or Cold Pack Therapeutic Exercise Therapeutic Activities Manual Therapy Hot or Cold Pack OT Evaluation Low Complexity Therapeutic Exercise Therapeutic Activities Manual Therapy Hot or Cold Pack Advance Directives Directive Yes / No Effective Date File Name No Information Encounters Encounter Description Practice Location Reason(s) For Visit Diagnoses Date Provider Providers Copied on Encounter [facility], [place], [place], [id number], [place] tel:[phone] [facility] CervicalgiaTort icollisStiffnes s of left shoulder, not elsewhere classifiedStiff ness of right shoulder, not elsewhere classifiedOth symptoms and signs involving the musculoskeletal systemStrain of muscle, fascia and tendon at neck level, subs 8-201 8 Marilyn Rhonda. [address] [facility], [address], [place], [address], [place]. tel:[phone] Referring Provider: Kermit Orta, [address] [facility] [address], [place], [address]. tel:[phone] [facility], [place], [place], [id number], [place] tel:[phone] [facility] Pain in left elbowStiffness of left wrist, not elsewhere classifiedMuscl e weakness (generalized)Ot her general symptoms and signsLateral epicondylitis, left elbow 8 Guimbarda Heydi. . Referring Provider: Kermit Orta, [address] [facility] [address], [place], [address]. tel:[phone] [facility], [address], [place], [place], [address], [place] tel:[phone] [facility] CervicalgiaTort icollisStiffnes s of left shoulder, not elsewhere classifiedStiff ness of right shoulder, not elsewhere classifiedOth symptoms and signs involving the musculoskeletal systemStrain of muscle, fascia and tendon at neck level, subs 8 Arnold Rhonda. [address] [place] [address], [address], [place], [place], [facility], [place]. tel:[phone] Referring Provider: Kermit Orta, [address] [facility] [address], [place], [address]. tel:[phone] [facility], [address], [place], [place], [id number], [place] tel:[phone] [facility] Pain in left elbowStiffness of left wrist, not elsewhere classifiedMuscl e weakness (generalized)Ot her general symptoms and signsLateral epicondylitis, left elbow 8 Guimbarda Heydi. . Referring Provider: Kermit Orta, [address] [facility] [address], [place], [address]. tel:[phone] [facility] [address], [place], [place], [id number], [place] tel:[phone] [facility] CervicalgiaTort icollisStiffnes s of left shoulder, not elsewhere classifiedStiff ness of right shoulder, not elsewhere classifiedOth symptoms and signs involving the musculoskeletal systemStrain of muscle, fascia and tendon at neck level, subs 8 Marilyn Rhonda. [address] [facility], [address], [place], [place], [facility], [place]. tel:[phone] Referring Provider: Kermit Orta, [address] [facility] [address], [place], [address]. tel:[phone] [facility] [address], [place], [place], [address], [place] tel:[phone] [facility] Pain in left elbowStiffness of left wrist, not elsewhere classifiedMuscl e weakness (generalized)Ot her general symptoms and signsLateral epicondylitis, left elbow Oct- 8 Jose Carlos Soliz. . Referring Provider: Kermit Orta, [address] [facility] [address], [place], [address]. tel:[phone] [facility] [address], [place], [place], [address], [place] tel:[phone] [facility] Pain in left elbowStiffness of left wrist, not elsewhere classifiedMuscl e weakness (generalized)Ot her general symptoms and signsLateral epicondylitis, left elbow Leo- 8 Wilbur Crouch. [address] [place] [address], [address], [place], [facility], [place]. tel:[phone] Referring Provider: Kermit Orta, [address] [facility] [address], [place], [address]. tel:[phone] [facility] [address] [place], [place] [address], [place], [place], [address], [place] tel:[phone] [facility] CervicalgiaTort icollisStiffnes s of left shoulder, not elsewhere classifiedStiff ness of right shoulder, not elsewhere classifiedOth symptoms and signs involving the musculoskeletal systemStrain of muscle, fascia and tendon at neck level, subs Leo- 8 Arnold Rhonda. [address] [facility], [address], [place], [address], [place]. tel:[phone] Referring Provider: Kermit Orta, [address] [facility] [address], [place], [address]. tel:[phone] [facility] [address], [place], [place], [id number], [place] tel:[phone] [facility] Pain in left elbowStiffness of left wrist, not elsewhere classifiedMuscl e weakness (generalized)Ot her general symptoms and signsLateral epicondylitis, left elbow Leo-0 6-201 8 Hauschild Willa. [address] [place] [address], [address] [place] [address], [facility], [place]. tel:[phone] [facility] [address] [place] [address] [address], [place], [place], [address], [place] tel:[phone] [facility] CervicalgiaTort icollisStiffnes s of left shoulder, not elsewhere classifiedStiff ness of right shoulder, not elsewhere classifiedOth symptoms and signs involving the musculoskeletal systemStrain of muscle, fascia and tendon at neck level, subs Leo-0 6-201 8 Arnold Rhonda. [address] [place] [address], [address] [place] [address], [facility], [place]. tel:[phone] Referring Provider: Kermit Orta, [address] [facility] [address], [place], [address]. tel:[phone] [facility] [address] [place] [address] [address], [place], [place], [id number], [place] tel:[phone] [facility] Pain in left elbowStiffness of left wrist, not elsewhere classifiedMuscl e weakness (generalized)Ot her general symptoms and signsLateral epicondylitis, left elbow Leo-0 4-201 8 Hauschild Willa. [address] [place] [address], [address], [facility], [place]. tel:[phone] [facility] [address] [place] [address] [address], [place], [place], [id number], [place] tel:[phone] [facility] CervicalgiaTort icollisStiffnes s of left shoulder, not elsewhere classifiedStiff ness of right shoulder, not elsewhere classifiedOth symptoms and signs involving the musculoskeletal systemStrain of muscle, fascia and tendon at neck level, subs Leo-0 4-201 8 Marilyn Rhonda. [address] [place] [address], [address], [place], [facility], [place]. tel:[phone] Referring Provider: Kermit Orta, [address] [facility] [address], [place], [address]. tel:[phone] [facility], [place], [place], [address], [place] tel:[phone] [facility] Pain in left elbowStiffness of left wrist, not elsewhere classifiedMuscl e weakness (generalized)Ot her general symptoms and signsLateral epicondylitis, left elbow Leo-0 1-201 8 Hauschild Willa. [address] [place] [address], [address], [place], [address], [place]. tel:[phone] [facility], [place], [place], [address], [place] tel:[phone] [facility] Pain in left elbowStiffness of left wrist, not elsewhere classifiedMuscl e weakness (generalized)Ot her general symptoms and signsLateral epicondylitis, left elbow May-3 0-201 8 Hauschild Willa. [address] [place] [address], [address], [place], [address], [place]. tel:[phone] [facility], [place], [place], [address], [place] tel:[phone] Sun[facility] Pain in left elbowStiffness of left wrist, not elsewhere classifiedMuscl e weakness (generalized)Ot her general symptoms and signsLateral epicondylitis, left elbow May-2 9-201 8 Hauschild Willa. [address] [facility], [address], [place], [address], [place]. tel:[phone] [facility], [place], [place], [address], [place] tel:[phone] [facility] Pain in left elbowStiffness of left wrist, not elsewhere classifiedMuscl e weakness (generalized)Ot her general symptoms and signsLateral epicondylitis, left elbow May-2 3-201 8 Hauschild Willa. [address] [facility], [address], [place], [address], [place]. tel:[phone] [facility], [place], [place], [address], [place] tel:[phone] [facility] Pain in left elbowStiffness of left wrist, not elsewhere classifiedMuscl e weakness (generalized)Ot her general symptoms and signsLateral epicondylitis, left elbow September- 8 Hauschild Willa. [address] [place] [address], [address], [place], [facility], [place]. tel:[phone] [facility], [place], [place], [address], [place] tel:[phone] [facility] Pain in left elbowStiffness of left wrist, not elsewhere classifiedMuscl e weakness (generalized)Ot her general symptoms and signsLateral epicondylitis, left elbow September- 8- 8 Hauschild Willa. [address] [place] [address], [address], [place], [facility], [place]. tel:[phone] [facility], [place], [place], [address], [place] tel:[phone] [facility] Pain in left elbowStiffness of left wrist, not elsewhere classifiedMuscl e weakness (generalized)Ot her general symptoms and signsLateral epicondylitis, left elbow September- 6- 8 Hauschild Willa. [address] [place] [address], [address], [place], [address], [place]. tel:[phone] [facility], [place], [place], [address], [place] tel:[phone] [facility] Pain in left elbowStiffness of left wrist, not elsewhere classifiedMuscl e weakness (generalized)Ot her general symptoms and signsLateral epicondylitis, left elbow 8 Hauschild Willa. [address] [place] [address], [address], [place], [address], [place]. tel:[phone] [facility], [place], [place], [address], [place] tel:[phone] Sun[facility] Pain in left elbowStiffness of left wrist, not elsewhere classifiedMuscl e weakness (generalized)Ot her general symptoms and signsLateral epicondylitis, left elbow May-1 1-201 8 Hauschild Willa. [address] [facility], [address], [place], [facility], . tel:[phone] [facility] [address], [place], [place], [address], tel:[phone] Sunol Pain in left elbowStiffness of left wrist, not elsewhere classifiedMuscl e weakness (generalized)Ot her general symptoms and signsLateral epicondylitis, left elbow May-0 9-201 8 Hauschild Willa. [address] [place] [address], [address], [address], . tel:[phone] [facility] [address], [place], [place], [address], [place] tel:[phone] [facility] Pain in left elbowStiffness of left wrist, not elsewhere classifiedMuscl e weakness (generalized)Ot her general symptoms and signsLateral epicondylitis, left elbow May-0 2-201 8 Hauschild Willa. [address] [place] [address], [address], [place], [facility], . tel:[phone] [facility] [address], [place], [place], [address], tel:[phone] Sunol Pain in left elbowStiffness of left wrist, not elsewhere classifiedMuscl e weakness (generalized)Ot her general symptoms and signsLateral epicondylitis, left elbow Apr-3 0-201 8 Hauschild Willa. [address] [facility], [address], [place], [address], [place]. tel:[phone] [facility], [place], [place], [address], tel:[phone] [facility] Pain in left elbowStiffness of left wrist, not elsewhere classifiedMuscl e weakness (generalized)Ot her general symptoms and signsLateral epicondylitis, left elbow Apr-2 6-201 8 Hauschild Willa. [address] [facility], [address], [place], [address], [place]. tel:[phone] [facility], [place], [place], [address], [place] tel:[phone] [facility] Pain in left elbowStiffness of left wrist, not elsewhere classifiedMuscl e weakness (generalized)Ot her general symptoms and signsLateral epicondylitis, left elbow Apr-2 5-201 8 Hauschild Willa. [address] [facility], [address], [place], [address], [place]. tel:[phone] [facility], [place], [place], [address], [place] tel:[phone] Sun[facility] Pain in left elbowStiffness of left wrist, not elsewhere classifiedMuscl e weakness (generalized)Ot her general symptoms and signsLateral epicondylitis, left elbow Apr-2 3-201 8 Hauschild Willa. [address] [facility], [address], [place], [address], [place]. tel:[phone] [facility] [address], [place], [place], [address], [place] tel:[phone] Sunol Pain in left elbowStiffness of left wrist, not elsewhere classifiedMuscl e weakness (generalized)Ot her general symptoms and signsLateral epicondylitis, left elbow Apr-2 0-201 8 Hauschild Willa. [address] [facility], [address], [place], [address], [place]. tel:[phone] [facility] [address], [place], [place], [address], [place] tel:[phone] Sunol Pain in left elbowStiffness of left wrist, not elsewhere classifiedMuscl e weakness (generalized)Ot her general symptoms and signsLateral epicondylitis, left elbow Apr-1 8-201 8 Hauschild Willa. [address] [facility], [address], [place], [address], . tel:[phone] [facility] [address], [place], [place], [address], tel:[phone] Sunol Pain in left elbowStiffness of left wrist, not elsewhere classifiedMuscl e weakness (generalized)Ot her general symptoms and signsLateral epicondylitis, left elbow Apr-1 6-201 8 Hauschitammie Crouch. [address] [place] [address], [address], [place], [address], . tel:[phone] [facility] [address], [place], [place], [address], [place] tel:[phone] Sunol Pain in left elbowStiffness of left wrist, not elsewhere classifiedMuscl e weakness (generalized)Ot her general symptoms and signsLateral epicondylitis, left elbow Apr-1 3-201 8 Hauschitammie Crouch. [address] [place] [address], [address], [place], [address], . tel:[phone] [facility] [address], [place], [place], [address], [place] tel:[phone] [facility] Pain in left elbowStiffness of left wrist, not elsewhere classifiedMuscl e weakness (generalized)Ot her general symptoms and signsLateral epicondylitis, left elbow Apr-1 1-201 8 Hauschild Willa. [address] [place] [address], [address], [place], [address], [place]. tel:[phone] [facility] [address], [place], [place], [address], [place] tel:[phone] Sunol Pain in left elbowStiffness of left wrist, not elsewhere classifiedMuscl e weakness (generalized)Ot her general symptoms and signsLateral epicondylitis, left elbow Apr-0 9-201 8 Hauschild Willa. [address] [place] [address], [address], [place], [address], . tel:[phone] [place] [address] [facility] [address], [place], [place], [address], [place] tel:[phone] Sunol Pain in left elbowStiffness of left wrist, not elsewhere classifiedMuscl e weakness (generalized)Ot her general symptoms and signsLateral epicondylitis, left elbow Apr-0 6-201 8 Cintiatammie Crouch. [address] [facility], [address], [place], [address], [place]. tel:[phone] Family History Family Member Type Diagnosis Age At Onset No Information Payers Payer name Insurance type Covered libertarian ID Authoriza tion(s) [employer] EPO WC SP WC [id number] Social History Type Description Quantity Date Captured Comments Sex Female Smoking Status No Information Chief Complaint And Reason For Visit No Information Reason For Referral Reason For Referral No Information History Of Present Illness Encounter Date Complaint History Of Prese nt Illness No Information Functional Status Date Functional Assessmen t No Information Instructions Date Instruction Additional Infor mation No Information Assessments Type Assessment Date No Information Patient Care Teams Name Effective Dates (start - stop) Status Members No Information
[2024-10-01 08:52] VITALS: BP 146/102; PULSE 102; RESP 20; TEMP 36.6; O2SAT 100
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
[2024-10-01] MEDS: ACETAMINOPHEN 500 MG TABLET 1000 MG PO (13:15)
[2024-10-01 13:20] LABS: BEDSIDEPREGUCG Negative (Negative)
[2024-10-01 13:23] LABS: Basophils Percent Auto 0.3 % (0.2-1.2); Eosinophils Absolute Auto 0.1 K/mm3 (0-0.3); Eosinophils Percent Auto 1.2 % (0-4.4); Hematocrit 41.3 % (37.0-47.0); Hemoglobin 12.9 g/dL (12.0-15.0); Immature Granulocyte Absolute 0.01 K/mm3 (0.00-0.031); Immature Granulocyte Percent A 0.1 % (0-0.5); Lymphocytes Absolute Auto 1.61 K/mm3 (0.9-3.2); Lymphocytes Percent Auto 21.8 % (18.3-44.2); Mean Corpuscular HGB Conc 31.2 g/dl (32-36); Mean Corpuscular Hemoglobin 29.5 pg (26-34); Mean Corpuscular Volume 94.5 fl (80-100); Mean Platelet Volume 9.4 fl (7.4-10.4); Monocytes Absolute Auto 0.9 K/mm3 (0.1-0.6); Monocytes Percent Auto 11.7 % (2.6-8.5); Neutrophils Absolute Auto 4.8 K/mm3 (1.3-6.7); Neutrophils Percent Auto 64.9 % (45.5-73.1); Platelet Count Result 359 k/mm3 (150-375); Red Blood Count 4.37 M/mm3 (4.2-5.4); Red Cell Distribution Width 13.2 % (11.5-14.5); White Blood Count 7.4 K/mm3 (4.5-10.0)
[2024-10-01 13:34] LABS: Anion Gap 7 mmol/L (4-12); Blood Urea Nitrogen 11 mg/dL (7-17); Calcium 8.4 mg/dL (8.4-10.2); Carbon Dioxide 27 mmol/L (22-30); Chloride 102 mmol/L (98-107); Estimated CRCL calculation 85 ml/min; Estimated Glomerular Filt Rate > 60; Glucose 81 mg/dL (65-110); Potassium 3.5 mmol/L (3.4-5.0); Sodium 136 mmol/L (137-145)
[2024-10-01 13:41] LABS: Bacteria Urine 1+ /hpf; Mucus Urine Present /lpf; Need Manual Microscopic Reviewed; Squamous Epithelial Cell Urine Few /hpf (Few); WBC Urine 51-100 /hpf (0-3)
[2024-10-01 13:42] LABS: Add Urine Microscopic? YES; Appearance Urine Cloudy (Clear); Bilirubin Urine Negative (Negative); Blood Urine 3+ (Negative); Color Urine Orange (Yellow); Glucose Urine UA Negative (Negative); INR 0.9; Ketones Urine 1+ mg/dL (Negative); Leukocyte Esterase Ur 3+ LEU/UL (Negative); Nitrate Urine Negative (Negative); Protein Urine 2+ mg/dL (Negative); Prothrombin Time 12.5 Seconds (11.1-14.7); Specific Grav Ur 1.023 (1.001-1.035)
[2024-10-01 13:43] LABS: Partial Thromboplastin Time 25.4 Seconds (22.3-36.8)
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
--- OUTSIDE RECORDS SUMMARY | 2024-10-01 13:56 | XMS_ITS | Clinical Summary ---
Author Organization [facility] Address [address] [place] [address] Care Team Providers Care Machine Stuffer Automatic Name Role Phone Semaj Ricardo MD Primary Care Provide r Julian Huang MD Unavailable [phone] Allergies No known active allergies Medications levothyroxine (SYNTHROID) 88 mcg tablet Take 1 tablet (88 mcg total) by mouth marble cutter before breakfast Active levothyroxine (SYNTHROID) 100 mcg tablet Take 1 tablet (100 mcg total) by mouth marble cutter before breakfast Active lisinopriL (PRINIVIL,ZEST RIL) 10 [...] Description 09/20/2024 11:30 AM CDT Office Visit [facility] Orthopedics and Sports Medicine [address] [place] [phone] Krysta Luo NP Aftercare following right hip joint replacement surgery (Primary Dx) 09/20/2024 10:48 AM CDT - 09/20/2024 11:59 PM CDT Hospital Encounter [facility] Orthopedics and Sports Medicine [address] [place] [phone] Discharge Disposition: Discharge to home or self care 08/11/2024 11:45 AM CDT Telemedicine [facility] Orthopedics and Sports Medicine [address] [place] [phone] Melania Zhang PA Aftercare following right hip joint replacement surgery (Primary Dx) 08/10/2024 Telephone [facility] Orthopedics and Sports Medicine [address] [place] [phone] Melania Zhang PA 08/01/2024 Telephone [facility] Orthopedics and Sports Medicine [address] [place] [phone] Melania Zhang PA 07/20/2024 8:30 AM RESTORATION OFFICER - 07/20/2024 10:55 AM RESTORATION OFFICER Surgery [facility] Operating Room [address] [place] [address] Julian Huang MD Right Total Hip Arthroplasty 07/20/2024 8:27 AM RESTORATION OFFICER Anesthesia Event [facility] Operating Room [address] [place] [address] Juana Hoang MD [place], Emenike Adolphus Jr., MD 07/20/2024 6:55 AM RESTORATION OFFICER - 07/20/2024 4:20 PM RESTORATION OFFICER Hospital Encounter [facility] Operating Room [address] [place] [address] Julian Huang MD Avascular necrosis of bone of right hip (HCC) (Primary Dx) Discharge Disposition: Discharge to home or self care 07/18/2024 11:00 AM RESTORATION OFFICER Lab [address] [phone] Right hip pain; Pre-operative exam 07/12/2024 Telephone [facility] Orthopedics and Sports Medicine [address] [facility] [address] [place] [address] Neha Hatfield MA surgery 07/11/2024 10:10 AM RESTORATION OFFICER Lab [address] [phone] Avascular necrosis of bone of right hip (HCC) 07/11/2024 10:04 AM RESTORATION OFFICER - 07/11/2024 11:59 PM RESTORATION OFFICER Hospital Encounter [facility] Imaging Center 1 [place] [address] Pre-operative exam Discharge Disposition: Discharge to home or self care 07/11/2024 10:03 AM RESTORATION OFFICER - 07/11/2024 11:59 PM RESTORATION OFFICER Hospital Encounter [facility] Cardiology 1 [place] [address] Right hip pain; Pre-operative exam Discharge Disposition: [...] 36.3 C (97.4 F) 07/20/2024 4:06 PM RESTORATION OFFICER Respiratory Rate 18 07/20/2024 4:06 PM RESTORATION OFFICER Oxygen Saturation 97% 07/20/2024 4:06 PM RESTORATION OFFICER Inhaled Oxygen Concentration - - Weight 80.3 [...] this topic Medical Devices Implanted Type Area Fruit Buyer Device Identifier Shelf Expiration Date Model / Serial / Lot Depuy [employer] Cameron 6.5mm 35mm Acetabular Cancellous Screw Bone Sterile 1217-35-500 - [id number] Implanted:Qty: 1 on 07/20/2024 by Julian Huang MD at [facility] Right: Hip [employer]uy [employer] Inc [id number] 04/16/2034 1217-35-500 / / [id number] Depuy [employer] Shell Acetabular Hip Porous 3 Hole Coated Emphasys 50mm Titanium [id number] - [id number] Implanted:Qty: 1 on 07/20/2024 by Julian Huang MD at [facility] Right: Hip [employer]uy [employer] Inc [id number] 05/17/2034 [id number] / / [id number] Depuy [employer] Liner Acetabular Hip Standard Emphasys Aox [id number] Polyethylene [id number] - [id number] Implanted:Qty: 1 on 07/20/2024 by Julian Huang MD at [facility] Right: Hip [employer]uy [employer] Inc [id number] 04/16/2029 [id number] / / [id number] Depuy [employer] Actis Collared Hip 04/30 3 Standard Offset Stem Femoral [id number] - [id number] Implanted:Qty: 1 on 07/20/2024 by Julian Huang MD at [facility] Right: Hip [employer]uy [employer] Inc [id number] 01/15/2034 [id number] / / [id number] Depuy [employer] Inc Articul/Ted 36mm Cementless Hip +5mm 04/30 Taper Head Femoral Latex Free [id number] - [id number] Implanted:Qty: 1 on 07/20/2024 by Julian Huang MD at [facility] Right: Hip [employer]uy [employer] Inc [id number] 02/14/2029 [id number] / / [id number] Procedures Procedure Name Priority Date/Time Associated Diagnosis Comments XR HIP RIGHT 2 OR 3 VIEWS Schedule Routine, Read Routine (OP Routine) 09/20/2024 11:29 AM CDT Aftercare following right hip joint replacement surgery SURGICAL PATHOLOGY Routine 07/20/2024 1 :04 PM RESTORATION OFFICER Avascular necrosis of bone of right hip (HCC) XR PELVIS ORTHO VIEW ED Urgent/IP Urgent 07/20/2024 10:36 AM RESTORATION OFFICER FL FLUOROSCOPY < 1 HOUR IP Routine 07/20/2024 10:00 AM RESTORATION OFFICER XR HIP RIGHT 1 VIEW IP Routine 07/20/2024 1 0:00 AM RESTORATION OFFICER ANESTHESIA SPINAL BLOCK Routine 07/20/2024 8:42 AM RESTORATION OFFICER ARTHROPLASTY TOTAL HIP - ANTERIOR APPROACH 07/20/2024 8:07 AM RESTORATION OFFICER Avascular necrosis of bone of right hip (HCC) Special Needs Anterior Approach, [Depuy- Actis], Omnitrac, Aquamantys, 1 liter beta rinse, Pt to go home APTT STAT 07/20/2024 7:26 AM RESTORATION OFFICER PROTIME-INR STAT 07/20/2024 7:26 AM RESTORATION OFFICER POCT HCG, URINE Routine 07/20/2024 7:16 AM RESTORATION OFFICER URINALYSIS AND REFLEX TO MICROSCOPIC AND CULTURE Routine 07/18/2024 11:45 AM RESTORATION OFFICER Right hip pain Pre-operative exam EGFR Routine 07/18/2024 11:42 AM RESTORATION OFFICER Right hip pain Pre-operative exam DIFFERENTIAL AUTO Routine 07/18/2024 11: 42 AM RESTORATION OFFICER Right hip pain Pre-operative exam CBC WITH AUTO DIFFERENTIAL Routine 07/18/2024 11:42 AM RESTORATION OFFICER Right hip pain Pre-operative exam COMPREHENSIVE METABOLIC PANEL Routine 07/18/2024 11:42 AM RESTORATION OFFICER Right hip pain Pre-operative exam HEMOGLOBIN A1C Routine 07/18/2024 11:42 AM RESTORATION OFFICER Right hip pain Pre-operative exam XR CHEST PA LATERAL 2 VIEWS Schedule Routine, Read Routine (OP Routine) 07/11/2024 10:42 AM RESTORATION OFFICER Pre-operative exam ECG 12-LEAD Routine 07/11/2024 10:33 AM RESTORATION OFFICER Right hip pain Pre-operative exam PROTIME-INR Routine 07/11/2024 10:12 AM RESTORATION OFFICER Avascular necrosis of bone of right hip (HCC) APTT Routine 07/11/2024 10:12 AM RESTORATION OFFICER Avascular necrosis of bone of right hip [...] from the time of surgery. Krysta Luo MOLD SWABBER IMG XR PROCEDURES Final Result * Surgical pathology (07/20/2024 1:04 PM RESTORATION OFFICER) Tissue specimen (specimen) (Bone Fragment(s),) 07/20/2024 9:12 AM RESTORATION OFFICER Narrative PATHOLOGY [facility] - 07/22/2024 6:14 PM RESTORATION OFFICER EPIC results best viewed via link to PDF [facility] Department of Pathology [address] [place] [address] Note to Patients: This report may contain [...] Final Report Patient Name: LIZBET CAMP Address: [address] [place] [address] , [place] [address] Gender: F : 1975 (Age: 48) Service: Surgery Location: [facility] Hospital #: [id number] Patient Type: [facility] Taken: 07/20/2024 Received: 07/20/2024 Accessioned: 07/20/2024 Reported: [...] is bisected revealing no subchondral gross lesions. Body Specialist sections are submitted in one cassette after decalcification. Inocencia Potts R.N., P.A./Germania Almodovar M.D. REPORT IMAGES AND SCANNED DOCUMENTS, IF INCLUDED, ONLY VIEWABLE IN PDF VERSION OF REPORT The performance characteristics of some immunohistochemical stains, fluorescence in-situ hybridization tests and immunophenotyping by flow cytometry cited in this report (if any) were determined by the Surgical Pathology Department at [facility] as part of an ongoing senior quality manager program and in compliance with federally mandated [...] characteristics determined by the Surgical Pathology Department [facility]. It has not been cleared or approved by the U. S. Food and Drug Administration. Note for decalcified specimens: This assay has not been validated on decalcified tissues. Results should be interpreted with caution given the possibility of false negativity on decalcified specimens Julian Huang MD LAB PATHOLOGY ORDERABLES Final Result PATHOLOGY [facility] ([facility]) [address] [place] [address] * XR Pelvis Ortho View (07/20/2024 10:36 AM RESTORATION OFFICER) Anatomical Region Laterality Modality Body, Pelvis N/A Computed Radiogr aphy 07/20/2024 11:2 8 AM RESTORATION OFFICER Narrative 07/20/2024 11:29 AM RESTORATION OFFICER EXAM DESCRIPTION: XR PELVIS ORTHO VIEW REASON [...] Haim Cardona D.O. AP: AP Report ID: [id number] Reading Location: [id number] Procedure Note Haim Cardona, DO - 07/20/2024 [...] Haim Cardona D.O. AP: AP Report ID: [id number] Reading Location: [place] [address] Julian Huang MD IMG XR PROCEDURES Final Result * FL Fluoroscopy < 1 Hour (07/20/2024 10:00 AM RESTORATION OFFICER) Narrative [facility] - 07/20/2024 10:01 AM RESTORATION OFFICER The images from this study are not interpreted by Radiology. Please refer to the physician's procedure / OR operative note. Julian Huang MD G FLUOROSCOPY PROCEDUR ES Final Result [facility] * XR Hip Right 1 View (07/20/2024 10:00 AM RESTORATION OFFICER) Anatomical Region Laterality Modality Lower Extremities, Hip, Pelvis Right R adio Fluoroscopy 07/23/2024 3:32 PM RESTORATION OFFICER Narrative 07/23/2024 3:33 PM RESTORATION OFFICER EXAM DESCRIPTION: XR HIP RIGHT 1 VIEW REASON FOR STUDY: pain Fluoro 13.2 mGy 1.32 FINDINGS: Multiple fluoroscopic images consisting of a single view(s) submitted with comparison 04/28/2024 . Dose area product equals 0.79704 mGym*2. Fluoroscopic images demonstrate an in progress right total hip arthroplasty placement . Soft tissue gas is present. IMPRESSION: In progress right total hip arthroplasty placement. THIS IS AN ELECTRONICALLY VERIFIED FINAL REPORT 07/23/2024 3:33 PM - Electronically signed by Richard Mejía M.D. MF: CODY Report ID: [id number] Reading Location: [id number] Procedure Note Richard Mejía MD - 07/23/2024 EXAM DESCRIPTION: XR HIP RIGHT 1 VIEW REASON FOR STUDY: pain Fluoro 13.2 mGy 1.32 FINDINGS: Multiple fluoroscopic images consisting of a single view(s) submittedwith comparison 04/28/2024 . Dose area product equals 0.41658 mGym*2. Fluoroscopic images demonstrate an in progress right total hiparthroplasty placement . Soft tissue gas is present. IMPRESSION: In progress right total hip arthroplasty placement. THIS IS AN ELECTRONICALLY VERIFIED FINAL REPORT 07/23/2024 3:33 PM - Electronically signed by Richard Mejía M.D. MF: CODY Report ID: [id number] Reading Location: [id number] Julian Huang MD IMG XR PROCEDURES Final Result * Spinal Block (07/20/2024 8:42 AM RESTORATION OFFICER) Narrative Kermit Khan CRNA - 07/20/2024 8:42 AM RESTORATION OFFICER Kermit Khan CRNA 07/20/2024 8:43 AM Spinal Block Patient location: OR End time: 07/20/2024 8:35 AM Reason for block: primary anesthetic Staff: Supervising provider: Juana Hoang MD Placed by: MACHINE REPAIRMAN:Kermit Khan CRNA Procedure prep: Preprocedure checklist: patient [...] tolerated procedure well with no complications Result [facility] Juana Hoang MD ANESTHESIA ORDERABLES Fi nal Result * aPTT (07/20/2024 7:26 AM RESTORATION OFFICER) aPTT 35 28 - 38 sec [facility] ([facility]) Comment: Interpretive Data Heparin therapeutic range: 66.0 - 100.0 seconds. Range based on correlation with therapeutic heparin activity range of 0.3 - 0.7 Units/mL. Current interpretive data was last revised on 2023. Blood 07/20/2024 7:26 AM RESTORATION OFFICER 07/20/2024 7:27 AM RESTORATION OFFICER Julian Huang MD LAB BLOOD ORDERABLES Fin al Result Performing Organization Address [facility] de Phone Number [facility] [address] [place] [address] [place] [address] * Protime-INR (07/20/2024 7:26 AM RESTORATION OFFICER) PT 10.4 9.7 - 13.0 sec [facility] ([facility]) INR 0.96 0.90 - 1.20 [facility] ([facility]) Comment: Interpretive data Oral anticoagulant therapeutic ranges: Venous thromboembolism prophylaxis or treatment: 2.0-3.0 CARDIOLOGY Standard range: 2.0-3.0 High-intensity range: 2.5-3.5 Refer to indication-specific guidelines for appropriate target ranges for prosthetic heart valve replacement. Current interpretive data was last revised on 2019. Blood 07/20/2024 7:26 AM RESTORATION OFFICER 07/20/2024 7:27 AM RESTORATION OFFICER Result [facility] Julian Huang MD LAB BLOOD ORDERABLES Fin al Result Performing Organization Address [facility] Co de Phone Number [facility] [address] [facility] [place] [address] * POCT hCG, urine (07/20/2024 7:16 AM RESTORATION OFFICER) HCG, ur, POC Negative Negative Lot Number [id number] QC Backgroud Clear Acceptable QC Control Line Acceptable Urine 07/20/2024 7:16 AM RESTORATION OFFICER Maylin Cedeno Jr., MD POINT OF CARE ST ORDERABLES Final Result * Urinalysis reflex to microscopic and culture Urine (07/18/2024 11:45 AM RESTORATION OFFICER) Color, ur Yellow Yellow Clarity, ur Clear [...] tendency for uric acid stone formation. Source: [facility] TapMe Current Interpretive Data was last revised on [...] [facility] ([facility]) Urine 07/18/2024 11:4 5 AM RESTORATION OFFICER 07/18/2024 11:52 AM RESTORATION OFFICER Melania CADE LAB MICROBIOLOGY - NERAL ORDERABLES Final Result [facility] ([facility]) [address] [facility] Department [place] [address] * eGFR (07/18/2024 11:42 AM RESTORATION OFFICER) Pathologist [facility] eGFR >90 >=60 mL/min/1. 73 m2 Comment: [...] reviewed 2021. Blood 07/18/2024 11:4 2 AM RESTORATION OFFICER 07/18/2024 11:51 AM RESTORATION OFFICER Melania CADE LAB BLOOD ORDERABLES Final Result [facility]) [address] [facility] [place] [address] * Differential, auto (07/18/2024 11:42 AM RESTORATION OFFICER) Pathologist [facility] Neutrophil abs 5.5 1.5 - 6.5 K/cumm [...] on 2017. Blood 07/18/2024 11:4 2 AM RESTORATION OFFICER 07/18/2024 11:51 AM RESTORATION OFFICER us Melania CADE LAB BLOOD ORDERABLES Final Result [facility] ([facility]) [address] [facility] [place] [address] * (ABNORMAL) CBC with auto differential (07/18/2024 11:42 AM RESTORATION OFFICER) WBC 8.4 3.8 - 9.9 K/cumm Hgb 14.0 11.9 - 15.5 g/dL [facility] ([facility]) Hct 44.3 35.6 - 45.5 % [facility] ([place]) Plt 359 150 - 400 K/cumm [facility] ([facility]) MPV 9.5 9.1 - 12.3 fL [facility] ([facility]) RBC 4.64 3.90 - 5.20 M/cumm [facility] ([facility]) MCV 95.5 81.3 - 96.4 fL [facility] ([facility]) MCH 30.2 27.1 - 33.3 pg [facility] ([facility]) MCHC 31.6(L) 32.3 - 35.7 g/dL [facility] ([facility]) RDW CV 13.2 11.1 - 14.9 % [facility] ([facility]) RDW SD 46.8 35.7 - 48.1 fL [facility] ([facility]) NRBC abs 0.00 0.00 - 0.01 K/cumm [facility] ([facility]) Blood 07/18/2024 11:4 2 AM RESTORATION OFFICER 07/18/2024 11:51 AM RESTORATION OFFICER Melania CADE LAB BLOOD ORDERABLES Final Result [facility] ([place] 1 [facility] [place] [address] * Hemoglobin A1c (07/18/2024 11:42 AM RESTORATION OFFICER) Hgb A1C 5.1 4.0 - 5.6 % Estimated Average Glucose 100 mg/dL [facility] ([facility]) Comment: The ADA recommends reporting an estimated Average Glucose (eAG) with all Hemoglobin A1c results using the equation derived from a study of 507 normal and diabetic adults. Minority populations were underrepresented and children were not included. (Diabetes Care 31:9094-1304, 2008). The eAG is not equivalent to a fasting glucose. Blood 07/18/2024 11:4 2 AM RESTORATION OFFICER 07/18/2024 11:51 AM RESTORATION OFFICER Narrative [id number]|2024-10-01 13:56:00|2024-10-01 13:56:00|XMS_ITS|TISHA MOSQUERA|External Medical Summaries|[id number]|" Referral Summary Created on: October 01, 2024 Lizbet Camp : 1975 Sex: Female Author Organization [facility] Address [address] [place] [address] Care Team Providers Care Machine Stuffer Automatic Name Role Phone Semaj Ricardo MD Primary Care Provide r Julian Huang MD Unavailable Encounters Date Type Department Care Team Description 09/20/2024 10:48 AM CDT - 09/20/2024 11:59 PM CDT Hospital Encounter [facility] Orthopedics and Sports Medicine [address] [place] [phone] Discharge Disposition: Discharge to home or self care 09/20/2024 11:30 AM CDT Office Visit [facility] Orthopedics and Sports Medicine [address] [place] [address] [place] [phone] Krysta Luo NP Aftercare following right hip joint replacement surgery (Primary Dx) 08/11/2024 11:45 AM CDT Telemedicine [facility] Orthopedics and Sports Medicine [address] [place] [address] [place] [phone] Melania Zhang PA Aftercare following right hip joint replacement surgery (Primary Dx) 08/10/2024 Telephone [facility] Orthopedics and Sports Medicine [address] [place] [address] [place] [phone] Melania Zhang PA 08/01/2024 Telephone [facility] Orthopedics and Sports Medicine [address] [place] [address] [place] [phone] Melania Zhang PA 07/20/2024 8:30 AM RESTORATION OFFICER - 07/20/2024 10:55 AM RESTORATION OFFICER Surgery [facility] Operating Room [address] [place] [address] Julian Huang MD Right Total Hip Arthroplasty 07/20/2024 8:27 AM RESTORATION OFFICER Anesthesia Event [facility] Operating Room [address] [place] [address] Juana Hoang MD [place], Emenike Adolphus Jr., MD 07/20/2024 6:55 AM RESTORATION OFFICER - 07/20/2024 4:20 PM RESTORATION OFFICER Hospital Encounter [facility] Operating Room [address] [place] [address] Julian Huang MD Avascular necrosis of bone of right hip (HCC) (Primary Dx) Discharge Disposition: Discharge to home or self care 07/18/2024 11:00 AM RESTORATION OFFICER Lab [address] [phone] Right hip pain; Pre-operative exam 07/12/2024 Telephone [facility] Orthopedics and Sports Medicine [address] [place] [phone] Neha Hatfield MA surgery 07/11/2024 10:10 AM RESTORATION OFFICER Lab [address] [phone] Avascular necrosis of bone of right hip (HCC) 07/11/2024 10:04 AM RESTORATION OFFICER - 07/11/2024 11:59 PM RESTORATION OFFICER Hospital Encounter [facility] [address] [place] [address] Pre-operative exam Discharge Disposition: Discharge to home or self care 07/11/2024 10:03 AM RESTORATION OFFICER - 07/11/2024 11:59 PM RESTORATION OFFICER Hospital Encounter [facility] Cardiology [address] [place] [address] Right hip pain; Pre-operative exam Discharge Disposition: Discharge to home or self care from Last 3 Months Allergies No known active allergies Medications levothyroxine (SYNTHROID) 88 mcg tablet Take 1 tablet (88 mcg total) by mouth marble cutter before breakfast Active levothyroxine (SYNTHROID) 100 mcg tablet Take 1 tablet (100 mcg total) by mouth marble cutter before breakfast Active lisinopriL (PRINIVIL,ZEST RIL) 10 [...] 36.3 C (97.4 F) 07/20/2024 4:06 PM RESTORATION OFFICER Respiratory Rate 18 07/20/2024 4:06 PM RESTORATION OFFICER Oxygen Saturation 97% 07/20/2024 4:06 PM RESTORATION OFFICER Inhaled Oxygen Concentration - - Weight 80.3 kg (177 lb) 09/20/2024 11:32 AM CDT Height 160 cm (5' 3 ) 09/20/2024 11:32 AM CDT Body Mass Index 31.35 09/20/2024 11:32 AM CDT Plan of Treatment Not on file Medical Devices Implanted Type Area Fruit Buyer Device Identifier Shelf Expiration Date Model / Serial / Lot [employer]uy [employer] Cameron 6.5mm 35mm Acetabular Cancellous Screw Bone Sterile 1217-35-500 - [id number] Implanted:Qty: 1 on 07/20/2024 by Julian Huang MD at [facility] Right: Hip [employer] [id number] 04/16/2034 1217-35-500 / / [id number] [employer] Shell Acetabular Hip Porous 3 Hole Coated Emphasys 50mm Titanium [id number] - [id number] Implanted:Qty: 1 on 07/20/2024 by Julian Huang MD at [facility] Right: Hip [employer] [id number] 05/17/2034 [id number] / / [id number] [employer] Liner Acetabular Hip Standard Emphasys Aox 69l24ba Polyethylene [id number] - [id number] Implanted:Qty: 1 on 07/20/2024 by Julian Huang MD at [facility] Right: Hip [employer] [id number] 04/16/2029 [id number] / / [id number] [employer] Actis Collared Hip 04/30 3 Standard Offset Stem Femoral [id number] - [id number] Implanted:Qty: 1 on 07/20/2024 by Julian Huang MD at [facility] Right: Hip [employer] [id number] 01/15/2034 [id number] / / [id number] Depuy [employer] Articul/Ted 36mm Cementless Hip +5mm 04/30 Taper Head Femoral Latex Free [id number] - [id number] Implanted:Qty: 1 on 07/20/2024 by Julian Huang MD at [facility] Right: Hip [employer] [id number] 02/14/2029 [id number] / / [id number] Procedures Procedure Name Priority Date/Time Associated Diagnosis Comments XR HIP RIGHT 2 OR 3 VIEWS Schedule Routine, Read Routine (OP Routine) 09/20/2024 11:29 AM CDT Aftercare following right hip joint replacement surgery SURGICAL PATHOLOGY Routine 07/20/2024 1: 04 PM RESTORATION OFFICER Avascular necrosis of bone of right hip (HCC) XR PELVIS ORTHO VIEW ED Urgent/IP Urgent 07/20/2024 10:36 AM RESTORATION OFFICER FL FLUOROSCOPY < 1 HOUR IP Routine 07/20/2024 10:00 AM RESTORATION OFFICER XR HIP RIGHT 1 VIEW IP Routine 07/20/2024 1 0:00 AM RESTORATION OFFICER ANESTHESIA SPINAL BLOCK Routine 07/20/2024 8:42 AM RESTORATION OFFICER ARTHROPLASTY TOTAL HIP - ANTERIOR APPROACH 07/20/2024 8:07 AM RESTORATION OFFICER Avascular necrosis of bone of right hip (HCC) Special Needs Anterior Approach, [Depuy- Actis], Omnitrac, Aquamantys, 1 liter beta rinse, Pt to go home APTT STAT 07/20/2024 7:26 AM RESTORATION OFFICER PROTIME-INR STAT 07/20/2024 7:26 AM RESTORATION OFFICER POCT HCG, URINE Routine 07/20/2024 7:16 AM RESTORATION OFFICER URINALYSIS AND REFLEX TO MICROSCOPIC AND CULTURE Routine 07/18/2024 11:45 AM RESTORATION OFFICER Right hip pain Pre-operative exam EGFR Routine 07/18/2024 11:42 AM RESTORATION OFFICER Right hip pain Pre-operative exam DIFFERENTIAL AUTO Routine 07/18/2024 11: 42 AM RESTORATION OFFICER Right hip pain Pre-operative exam CBC WITH AUTO DIFFERENTIAL Routine 07/18/2024 11:42 AM RESTORATION OFFICER Right hip pain Pre-operative exam COMPREHENSIVE METABOLIC PANEL Routine 07/18/2024 11:42 AM RESTORATION OFFICER Right hip pain Pre-operative exam HEMOGLOBIN A1C Routine 07/18/2024 11:42 AM RESTORATION OFFICER Right hip pain Pre-operative exam XR CHEST PA LATERAL 2 VIEWS Schedule Routine, Read Routine (OP Routine) 07/11/2024 10:42 AM RESTORATION OFFICER Pre-operative exam ECG 12-LEAD Routine 07/11/2024 10:33 AM RESTORATION OFFICER Right hip pain Pre-operative exam PROTIME-INR Routine 07/11/2024 10:12 AM RESTORATION OFFICER Avascular necrosis of bone of right hip (HCC) APTT Routine 07/11/2024 10:12 AM RESTORATION OFFICER Avascular necrosis of bone of right hip [...] the time of surgery. us Krysta Luo MOLD SWABBER IMG XR PROCEDURES Final Result * Surgical pathology (07/20/2024 1:04 PM RESTORATION OFFICER) Tissue specimen (specimen) (Bone Fragment(s),) 07/20/2024 9:12 AM RESTORATION OFFICER Narrative PATHOLOGY [facility] - 07/22/2024 6:14 PM RESTORATION OFFICER EPIC results best viewed via link to PDF [facility] Department of Pathology [address] [place] [address] Note to Patients: This report may contain [...] Final Report Patient Name: LIZBET CAMP Address: [address] [place] [address] Gender: F : 1975 (Age: 48) Service: Surgery Location: [facility] Hospital #: [id number] Patient Type: [facility] Taken: 07/20/2024 Received: 07/20/2024 Accessioned: 07/20/2024 Reported: 07/22/2024 Physician(s):Dr. Julian Huang M.D. Diagnosis: A. Right hip, total arthroplasty- Changes consistent with avascular necrosis Germania Almodovar M.D. Report Electronically Reviewed and Signed Out By Germania Almodovar M.D. 07/22/2024 18:14:34 Specimen(s) Received: A: right hip bone and tissue fragments Microscopic Description: Microscopic examination corroborates the diagnosis. Clinical History: Avascular necrosis of bone of right hip ([facility]) [M87.051] Right total hip arthroplasty Gross [...] is bisected revealing no subchondral gross lesions. Body Specialist sections are submitted in one cassette after decalcification. Inocencia Potts R.N., PAntony./Germania Almodovar M.D. REPORT IMAGES AND SCANNED DOCUMENTS, IF INCLUDED, ONLY VIEWABLE IN PDF VERSION OF REPORT The performance characteristics of some immunohistochemical stains, fluorescence in-situ hybridization tests and immunophenotyping by flow cytometry cited in this report (if any) were determined by the Surgical Pathology Department at [facility] as part of an ongoing senior quality manager program and in compliance with federally mandated [...] characteristics determined by the Surgical Pathology Department [facility]. It has not been cleared or approved by the U. S. Food and Drug Administration. Note for decalcified specimens: This assay has not been validated on decalcified tissues. Results should be interpreted with caution given the possibility of false negativity on decalcified specimens us Julian Huang MD LAB PATHOLOGY ORDERABLES Final Result PATHOLOGY [facility] ([place]) [address] [place] [address] * XR Pelvis Ortho View (07/20/2024 10:36 AM RESTORATION OFFICER) Anatomical Region Laterality Modality Body, Pelvis N/A Computed Radiogr aphy 07/20/2024 11:2 8 AM RESTORATION OFFICER Narrative 07/20/2024 11:29 AM RESTORATION OFFICER EXAM DESCRIPTION: XR PELVIS ORTHO VIEW REASON [...] Haim Cardona D.O. AP: AP Report ID: [id number] Reading Location: [id number] Procedure Note Haim Cardona DO - 07/20/2024 [...] Haim Cardona D.O. AP: AP Report ID: [id number] Reading Location: [id number] Julian Huang MD IMG XR PROCEDURES Final Result * FL Fluoroscopy < 1 Hour (07/20/2024 10:00 AM RESTORATION OFFICER) Narrative [facility] - 07/20/2024 10:01 AM RESTORATION OFFICER The images from this study are not interpreted by Radiology. Please refer to the physician's procedure / OR operative note. Julian Huang MD IMG FLUOROSCOPY PROCEDUR ES Final Result [facility] * XR Hip Right 1 View (07/20/2024 10:00 AM RESTORATION OFFICER) Anatomical Region Laterality Modality Lower Extremities, Hip, Pelvis Right R adio Fluoroscopy 07/23/2024 3:32 PM RESTORATION OFFICER Narrative 07/23/2024 3:33 PM RESTORATION OFFICER EXAM DESCRIPTION: XR HIP RIGHT 1 VIEW REASON FOR STUDY: pain Fluoro 13.2 mGy 1.32 FINDINGS: Multiple fluoroscopic images consisting of a single view(s) submitted with comparison 04/28/2024 . Dose area product equals 0.66485 mGym*2. Fluoroscopic images demonstrate an in progress right total hip arthroplasty placement . Soft tissue gas is present. IMPRESSION: In progress right total hip arthroplasty placement. THIS IS AN ELECTRONICALLY VERIFIED FINAL REPORT 07/23/2024 3:33 PM - Electronically signed by Richard Mejía M.D. MF: CODY Report ID: [id number] Reading Location: [id number] Procedure Note Richard Mejía MD - 07/23/2024 EXAM DESCRIPTION: XR HIP RIGHT 1 VIEW REASON FOR STUDY: pain Fluoro 13.2 mGy 1.32 FINDINGS: Multiple fluoroscopic images consisting of a single view(s) submittedwith comparison 04/28/2024 . Dose area product equals 0.41087 mGym*2. Fluoroscopic images demonstrate an in progress right total hiparthroplasty placement . Soft tissue gas is present. IMPRESSION: In progress right total hip arthroplasty placement. THIS IS AN ELECTRONICALLY VERIFIED FINAL REPORT 07/23/2024 3:33 PM - Electronically signed by Richard Mejía M.D. MF: CODY Report ID: [id number] Reading Location: [place] [address] Julian Huang MD IMG XR PROCEDURES Final Result * Spinal Block (07/20/2024 8:42 AM RESTORATION OFFICER) Narrative Kermit Khan CRNA - 07/20/2024 8:42 AM RESTORATION OFFICER Kermit Khan CRNA 07/20/2024 8:43 AM Spinal Block Patient location: OR End time: 07/20/2024 8:35 AM Reason for block: primary anesthetic Staff: Supervising provider: Juana Hoang MD Placed by: MACHINE REPAIRMAN:Kermit Khan CRNA Procedure prep: Preprocedure checklist: patient [...] nal Result * aPTT (07/20/2024 7:26 AM RESTORATION OFFICER) aPTT 35 28 - 38 sec [facility] Comment: Interpretive Data Heparin therapeutic range: 66.0 - 100.0 seconds. Range based on correlation with therapeutic heparin activity range of 0.3 - 0.7 Units/mL. Current interpretive data was last revised on 2023. Blood 07/20/2024 7:26 AM RESTORATION OFFICER 07/20/2024 7:27 AM RESTORATION OFFICER Julian Huang MD LAB BLOOD ORDERABLES Fin al Result Performing Organization Address City/[facility] Co de Phone Number [facility] ([place]) [address] [facility] [place] [address] * Protime-INR (07/20/2024 7:26 AM RESTORATION OFFICER) PT 10.4 9.7 - 13.[address] [facility] INR 0.96 0.90 - 1.[address] [facility] Comment: Interpretive data Oral anticoagulant therapeutic ranges: Venous thromboembolism prophylaxis or treatment: 2.0-3.0 CARDIOLOGY Standard range: 2.0-3.0 High-intensity range: 2.5-3.5 Refer to indication-specific guidelines for appropriate target ranges for prosthetic heart valve replacement. Current interpretive data was last revised on 2019. Blood 07/20/2024 7:26 AM RESTORATION OFFICER 07/20/2024 7:27 AM RESTORATION OFFICER us Julian Huang MD LAB BLOOD ORDERABLES Fin al Result Performing Organization Address City/[facility] Co de Phone Number [facility] ([place]) [address] [facility] [place] [address] * POCT hCG, urine (07/20/2024 7:16 AM RESTORATION OFFICER) HCG, ur, POC Negative Negative Lot Number [id number] QC Backgroud Clear Acceptable QC Control Line Acceptable Urine 07/20/2024 7:16 AM RESTORATION OFFICER Maylin Cedeno Jr., MD POINT OF CARE TE ST ORDERABLES Final Result * Urinalysis reflex to microscopic and culture Urine (07/18/2024 11:45 AM RESTORATION OFFICER) Color, ur Yellow Yellow Clarity, ur Clear [...] tendency for uric acid stone formation. Source: [facility] [employer] Current Interpretive Data was last revised on [...] [facility] ([place]) Urine 07/18/2024 11:4 5 AM RESTORATION OFFICER 07/18/2024 11:52 AM RESTORATION OFFICER Melania CADE LAB MICROBIOLOGY - NERAL ORDERABLES Final Result [facility] ([place]) 1 [facility] Department [place] [address] * eGFR (07/18/2024 11:42 AM RESTORATION OFFICER) eGFR >90 >=60 mL/min/1. 73 m2 Comment: [...] reviewed 2021. Blood 07/18/2024 11:4 2 AM RESTORATION OFFICER 07/18/2024 11:51 AM RESTORATION OFFICER us Melania CADE LAB BLOOD ORDERABLES Final Result [facility] ([place]) 1 [facility] Department [place] [address] * Differential, auto (07/18/2024 11:42 AM RESTORATION OFFICER) Neutrophil abs 5.5 1.5 - 6.5 K/cumm [...] on 2017. Blood 07/18/2024 11:4 2 AM RESTORATION OFFICER 07/18/2024 11:51 AM RESTORATION OFFICER us Melania CADE LAB BLOOD ORDERABLES Final Result [facility] ([place]) 1 [facility] Department [place] [address] * (ABNORMAL) CBC with auto differential (07/18/2024 11:42 AM RESTORATION OFFICER) WBC 8.4 3.8 - 9.9 K/cumm Hgb [...] [facility] ([place]) Blood 07/18/2024 11:4 2 AM RESTORATION OFFICER 07/18/2024 11:51 AM RESTORATION OFFICER Melania CADE LAB BLOOD ORDERABLES Final Result Performing Organization Address City/[facility] Co de Phone Number [facility] ([place]) [address] [place] [address] [place] [address] * Hemoglobin A1c (07/18/2024 11:42 AM RESTORATION OFFICER) Pathologist [facility] Hgb A1C 5.1 4.0 - 5.6 % Estimated Average Glucose 100 mg/dL [facility] Comment: The ADA recommends reporting an estimated Average Glucose (eAG) with all Hemoglobin A1c results using the equation derived from a study of 507 normal and diabetic adults. Minority populations were underrepresented and children were not included. (Diabetes Care 31:4196-0000, 2008). The eAG is not equivalent to a fasting glucose. Blood 07/18/2024 11:4 2 AM RESTORATION OFFICER 07/18/2024 11:51 AM RESTORATION OFFICER Melania CADE LAB BLOOD ORDERABLES Final Result Performing Organization Address City/[facility]/ZIP Co de Phone Number [facility] ([place]) [address] [facility] [place] [address] * Comprehensive metabolic panel (07/18/2024 11:42 AM RESTORATION OFFICER) Sodium 142 135 - 145 mmol/L Potassium, pl 4.4 3.3 - 4.9 mmol/L [facility] Chloride 107 97 - 110 mmol/L [facility] CO2 27 22 - 32 mmol/L [facility] Anion gap 9 2 - 15 mmol/L [facility] ([place])
--- OUTSIDE RECORDS SUMMARY | 2024-10-01 13:56 | XMS_ITS | Clinical Summary ---
Author Organization [facility] Address [facility] [place] [address] Care Team Providers Care Generator Worker Name Role Phone Unavailable Primary Care Provider Unavailabl e Source Comments [facility] [employer],non-owned Affiliates and Associated Physician Practices is amultiple site organization consisting of ambulatory clinics and hospital sitesin [place], [place], [place] and [place]. This disclosure is being madepursuant to the Care Everywhere program and may not contain all information available regarding this patient. Last updated 18.[employer] Allergies No known active allergies Medications * [...] patient's age to complete this topic Insurance [id number] [place] [address] [facility]LY [facility] Advance Directives * Full Code (Latest Code Status on File) Date Activated Date Inactivated Comments 07/29/2021 7:53 PM 07/31/2021 3:16 PM
--- OUTSIDE RECORDS SUMMARY | 2024-10-01 13:57 | XMS_ITS | Continuity of Care Document ---
Author Organization [facility] Address [address] [place] [address] [address] [place] [address] Phone Care Team Providers Care Service Consultant Name Role Phone Marilyn Rhonda MUÑOZ Unavailable [...] Activities Manual Therapy Hot or Cold Pack [employer] Acute Therapeutic Exercise Therapeutic Activities Manual Therapy [...] Diagnoses Date Provider Providers Copied on Encounter [facility], [place], [place], [id number], [place] tel:[phone] [place] CervicalgiaTort icollisStiffnes s of left shoulder, not elsewhere classifiedStiff ness of right shoulder, not elsewhere classifiedOth symptoms and signs involving the musculoskeletal systemStrain of muscle, fascia and tendon at neck level, subs 8-201 8 Marilyn Rhonda. [address] [facility], [address], [place], [address], [place]. tel:[phone] Referring Provider: Kermit Orta, [address] [facility] [address], [place], [address]. tel:[phone] [facility], [place], [place], [id number], [place] tel:[phone] [place] Pain in left elbowStiffness of left wrist, not elsewhere classifiedMuscl e weakness (generalized)Ot her general symptoms and signsLateral epicondylitis, left elbow 8 Guimbarda Hyedi. . Referring Provider: Kermit Orta, [address] [facility] [address], [place], [address]. tel:[phone] [facility], [address], [place], [place], [address], [place] tel:[phone] [place] CervicalgiaTort icollisStiffnes s of left shoulder, not elsewhere classifiedStiff ness of right shoulder, not elsewhere classifiedOth symptoms and signs involving the musculoskeletal systemStrain of muscle, fascia and tendon at neck level, subs 8 Turon Rhonda. [address] [place] [address], [address], [place], [place], [facility], [place]. tel:[phone] Referring Provider: Kermit Orta, [address] [facility] [address], [place], [address]. tel:[phone] [facility], [address], [place], [place], [id number], [place] tel:[phone] [place] Pain in left elbowStiffness of left wrist, not elsewhere classifiedMuscl e weakness (generalized)Ot her general symptoms and signsLateral epicondylitis, left elbow 8 Guimbarda Heydi. . Referring Provider: Kermit Orta, [address] [facility] [address], [place], [address]. tel:[phone] [facility] [address], [place], [place], [address], [place] tel:[phone] [place] CervicalgiaTort icollisStiffnes s of left shoulder, not elsewhere classifiedStiff ness of right shoulder, not elsewhere classifiedOth symptoms and signs involving the musculoskeletal systemStrain of muscle, fascia and tendon at neck level, subs 8 Marilyn Rhonda. [address] [facility], [address], [place], [place], [facility], [place]. tel:[phone] Referring Provider: Kermit Orta, [address] [facility] [address], [place], [address]. tel:[phone] [facility] [address], [place], [place], [address], [place] tel:[phone] [place] Pain in left elbowStiffness of left wrist, not elsewhere classifiedMuscl e weakness (generalized)Ot her general symptoms and signsLateral epicondylitis, left elbow Oct- 8 Jose Carlos Soliz. . Referring Provider: Kermit Orta, [address] [facility] [address], [place], [address]. tel:[phone] [facility] [address], [place], [place], [address], [place] tel:[phone] [place] Pain in left elbowStiffness of left wrist, not elsewhere classifiedMuscl e weakness (generalized)Ot her general symptoms and signsLateral epicondylitis, left elbow Leo- 8 Wilbur Crouch. [address] [place] [address], [address], [place], [place], [facility], [place]. tel:[phone] Referring Provider: Kermit Orta, [address] [facility] [address], [place], [address]. tel:[phone] [facility] [address] [place], [place] [address], [place], [place], [address], [place] tel:[phone] [place] CervicalgiaTort icollisStiffnes s of left shoulder, not elsewhere classifiedStiff ness of right shoulder, not elsewhere classifiedOth symptoms and signs involving the musculoskeletal systemStrain of muscle, fascia and tendon at neck level, subs Leo- 8 Turon Rhonda. [address] [facility], [address], [place], [address], [place]. tel:[phone] Referring Provider: Kermit Orta, [address] [facility] [address], [place], [address]. tel:[phone] [facility] [address], [place], [place], [id number], [place] tel:[phone] [place] Pain in left elbowStiffness of left wrist, not elsewhere classifiedMuscl e weakness (generalized)Ot her general symptoms and signsLateral epicondylitis, left elbow Leo-0 6-201 8 Hauschild Willa. [address] [place] [address], [address] [place] [address], [facility], [place]. tel:[phone] [facility] [address] [place] [address] [address], [place], [place], [id number], [place] tel:[phone] [place] CervicalgiaTort icollisStiffnes s of left shoulder, not elsewhere classifiedStiff ness of right shoulder, not elsewhere classifiedOth symptoms and signs involving the musculoskeletal systemStrain of muscle, fascia and tendon at neck level, subs Leo-0 6-201 8 Turon Rhonda. [address] [place] [address], [address] [place] [address], [facility], [place]. tel:[phone] Referring Provider: Kermit Orta, [address] [facility] [address], [place], [address]. tel:[phone] [facility] [address] [place] [address] [address], [place], [place], [id number], [place] tel:[phone] [place] Pain in left elbowStiffness of left wrist, not elsewhere classifiedMuscl e weakness (generalized)Ot her general symptoms and signsLateral epicondylitis, left elbow Leo-0 4-201 8 Hauschild Willa. [address] [place] [address], [address], [facility], [place]. tel:[phone] [facility] [address] [place] [address] [address], [place], [place], [address], [place] tel:[phone] [place] CervicalgiaTort icollisStiffnes s of left shoulder, not elsewhere classifiedStiff ness of right shoulder, not elsewhere classifiedOth symptoms and signs involving the musculoskeletal systemStrain of muscle, fascia and tendon at neck level, subs Leo-0 4-201 8 Marilyn Rhonda. [address] [place] [address], [address], [place], [facility], [place]. tel:[phone] Referring Provider: Kermit Orta, [address] [facility] [address], [place], [address]. tel:[phone] [facility], [place], [place], [id number], [place] tel:[phone] [place] Pain in left elbowStiffness of left wrist, not elsewhere classifiedMuscl e weakness (generalized)Ot her general symptoms and signsLateral epicondylitis, left elbow Leo-0 1-201 8 Hauschild Willa. [address] [place] [address], [address], [place], [address], [place]. tel:[phone] [facility], [place], [place], [address], [place] tel:[phone] [place] Pain in left elbowStiffness of left wrist, not elsewhere classifiedMuscl e weakness (generalized)Ot her general symptoms and signsLateral epicondylitis, left elbow May-3 0-201 8 Hauschild Willa. [address] [place] [address], [address], [place], [address], [place]. tel:[phone] [facility], [place], [place], [address], [place] tel:[phone] [place] Pain in left elbowStiffness of left wrist, not elsewhere classifiedMuscl e weakness (generalized)Ot her general symptoms and signsLateral epicondylitis, left elbow May-2 9-201 8 Hauschild Willa. [address] [facility], [address], [place], [address], [place]. tel:[phone] [facility], [place], [place], [address], [place] tel:[phone] [place] Pain in left elbowStiffness of left wrist, not elsewhere classifiedMuscl e weakness (generalized)Ot her general symptoms and signsLateral epicondylitis, left elbow May-2 3-201 8 Hauschild Willa. [address] [facility], [address], [place], [address], [place]. tel:[phone] [facility], [place], [place], [address], [place] tel:[phone] [place] Pain in left elbowStiffness of left wrist, not elsewhere classifiedMuscl e weakness (generalized)Ot her general symptoms and signsLateral epicondylitis, left elbow September- 8 Hauschild Willa. [address] [place] [address], [address], [place], [facility], [place]. tel:[phone] [facility], [place], [place], [address], [place] tel:[phone] [place] Pain in left elbowStiffness of left wrist, not elsewhere classifiedMuscl e weakness (generalized)Ot her general symptoms and signsLateral epicondylitis, left elbow September- 8- 8 Hauschild Willa. [address] [place] [address], [address], [place], [facility], [place]. tel:[phone] [facility], [place], [place], [address], [place] tel:[phone] [place] Pain in left elbowStiffness of left wrist, not elsewhere classifiedMuscl e weakness (generalized)Ot her general symptoms and signsLateral epicondylitis, left elbow September- 6- 8 Hauschild Willa. [address] [place] [address], [address], [place], [address], [place]. tel:[phone] [facility], [place], [place], [address], [place] tel:[phone] [place] Pain in left elbowStiffness of left wrist, not elsewhere classifiedMuscl e weakness (generalized)Ot her general symptoms and signsLateral epicondylitis, left elbow 8 Hauschild Willa. [address] [place] [address], [address], [place], [address], [place]. tel:[phone] [facility], [place], [place], [address], [place] tel:[phone] [place] Pain in left elbowStiffness of left wrist, not elsewhere classifiedMuscl e weakness (generalized)Ot her general symptoms and signsLateral epicondylitis, left elbow May-1 1-201 8 Hauschild Willa. [address] [facility], [address], [place], [facility], . tel:[phone] [facility] [address], [place], [place], [address], tel:[phone] [place] Pain in left elbowStiffness of left wrist, not elsewhere classifiedMuscl e weakness (generalized)Ot her general symptoms and signsLateral epicondylitis, left elbow May-0 9-201 8 Hauschild Willa. [address] [place] [address], [address], [address], . tel:[phone] [facility] [address], [place], [place], [address], [place] tel:[phone] [place] Pain in left elbowStiffness of left wrist, not elsewhere classifiedMuscl e weakness (generalized)Ot her general symptoms and signsLateral epicondylitis, left elbow May-0 2-201 8 Hauschild Willa. [address] [place] [address], [address], [place], [facility], . tel:[phone] [facility] [address], [place], [place], [address], tel:[phone] [place] Pain in left elbowStiffness of left wrist, not elsewhere classifiedMuscl e weakness (generalized)Ot her general symptoms and signsLateral epicondylitis, left elbow Apr-3 0-201 8 Hauschild Willa. [address] [facility], [address], [place], [address], [place]. tel:[phone] [facility], [place], [place], [address], tel:[phone] [place] Pain in left elbowStiffness of left wrist, not elsewhere classifiedMuscl e weakness (generalized)Ot her general symptoms and signsLateral epicondylitis, left elbow Apr-2 6-201 8 Hauschild Willa. [address] [facility], [address], [place], [address], [place]. tel:[phone] [facility], [place], [place], [address], [place] tel:[phone] [place] Pain in left elbowStiffness of left wrist, not elsewhere classifiedMuscl e weakness (generalized)Ot her general symptoms and signsLateral epicondylitis, left elbow Apr-2 5-201 8 Hauschild Willa. [address] [facility], [address], [place], [address], [place]. tel:[phone] [facility], [place], [place], [address], [place] tel:[phone] [place] Pain in left elbowStiffness of left wrist, not elsewhere classifiedMuscl e weakness (generalized)Ot her general symptoms and signsLateral epicondylitis, left elbow Apr-2 3-201 8 Hauschild Willa. [address] [facility], [address], [place], [address], [place]. tel:[phone] [facility] [address], [place], [place], [address], [place] tel:[phone] [place] Pain in left elbowStiffness of left wrist, not elsewhere classifiedMuscl e weakness (generalized)Ot her general symptoms and signsLateral epicondylitis, left elbow Apr-2 0-201 8 Hauschild Willa. [address] [facility], [address], [place], [address], [place]. tel:[phone] [facility] [address], [place], [place], [address], [place] tel:[phone] [place] Pain in left elbowStiffness of left wrist, not elsewhere classifiedMuscl e weakness (generalized)Ot her general symptoms and signsLateral epicondylitis, left elbow Apr-1 8-201 8 Hauschild Willa. [address] [facility], [address], [place], [address], . tel:[phone] [facility] [address], [place], [place], [address], tel:[phone] [place] Pain in left elbowStiffness of left wrist, not elsewhere classifiedMuscl e weakness (generalized)Ot her general symptoms and signsLateral epicondylitis, left elbow Apr-1 6-201 8 Hauschitammie Crouch. [address] [place] [address], [address], [place], [address], . tel:[phone] [facility] [address], [place], [place], [address], [place] tel:[phone] [place] Pain in left elbowStiffness of left wrist, not elsewhere classifiedMuscl e weakness (generalized)Ot her general symptoms and signsLateral epicondylitis, left elbow Apr-1 3-201 8 Hauschitammie Crouch. [address] [place] [address], [address], [place], [address], . tel:[phone] [facility] [address], [place], [place], [address], [place] tel:[phone] [place] Pain in left elbowStiffness of left wrist, not elsewhere classifiedMuscl e weakness (generalized)Ot her general symptoms and signsLateral epicondylitis, left elbow Apr-1 1-201 8 Hauschild Willa. [address] [place] [address], [address], [place], [address], [place]. tel:[phone] [facility] [address], [place], [place], [address], [place] tel:[phone] [place] Pain in left elbowStiffness of left wrist, not elsewhere classifiedMuscl e weakness (generalized)Ot her general symptoms and signsLateral epicondylitis, left elbow Apr-0 9-201 8 Hauschild Willa. [address] [place] [address], [address], [place], [address], . tel:[phone] [place] [address] [facility] [address], [place], [place], [address], [place] tel:[phone] [place] Pain in left elbowStiffness of left wrist, not elsewhere classifiedMuscl e weakness (generalized)Ot her general symptoms and signsLateral epicondylitis, left elbow Apr-0 6-201 8 Cintiatammie Crouch. [address] [facility], [address], [place], [address], [place]. tel:[phone] Family History Family Member Type Diagnosis Age At Onset No Information Payers Payer name Insurance type Covered alliance party ID Authoriza tion(s) [employer] EPO WC SP [id number] Social History Type Description Quantity Date Captured [...]
[2024-10-01 14:07] LABS: Syphilis IgG/IgM Antibody Negative (Negative)
[2024-10-01 14:14] LABS: HIV 1/2 Ab P24 Ag Result Negative (Negative)
[2024-10-01 14:30] LABS: Trichomonas Vag PCR NOT DETECTED (NOT DETECTE)
[2024-10-01 14:39] LABS: Free T4 Free Thyroxine Reflex 1.28 ng/dL (0.78-2.19)
[2024-10-01 14:55] LABS: Chlamydia trachomatis NOT DETECTED (NOT DETECTE); Neisseria gonorrhoeae PCR NOT DETECTED (NOT DETECTE)
== END 2024-10-01 14:12 | disposition left against medical advice (07) ==
LOC: ANHED 13:54
PROVIDERS: Emergency Provider Student in an Organized Health Care Education/Training Program; PCP Family Medicine
DX: N39.0 Urinary tract infection, site not specified (principal); Z59.00 Homelessness unspecified; E03.9 Hypothyroidism, unspecified; Z87.891 Personal history of nicotine dependence
CPT/HCPCS: 36415; 80048; 81001; 81025; 84439; 84443; 84480; 85025; 85610; 85730; 86593; 86703; 87086; 87491; 87591; 87661; 99284; A9270; G0432

== ENCOUNTER 2024-10-04 10:26 | Emergency (ER) | payer OTHER, SELFPAY ==
[2024-10-04 10:31] VITALS: BP 172/105; PULSE 100; RESP 16; TEMP 36.4; O2SAT 99
--- OUTSIDE RECORDS SUMMARY | 2024-10-04 10:40 | XMS_ITS | Clinical Summary ---
Author Organization [facility] Address [address] [place] [address] Care Team Providers Care Rn Coronary Care Unit Name Role Phone Semaj Ricardo MD Primary Care Provide r Julian Huang MD Unavailable [phone] Allergies No known active allergies Medications levothyroxine (SYNTHROID) 88 mcg tablet Take 1 tablet (88 mcg total) by mouth roll table operator before breakfast Active levothyroxine (SYNTHROID) 100 mcg tablet Take 1 tablet (100 mcg total) by mouth roll table operator before breakfast Active lisinopriL (PRINIVIL,ZEST RIL) 10 [...] Description 09/20/2024 11:30 AM CDT Office Visit [facility] Medical [facility] Orthopedics and Sports Medicine [address] [place] [phone] Krysta Luo NP Aftercare following right hip joint replacement surgery (Primary Dx) 09/20/2024 10:48 AM CDT - 09/20/2024 11:59 PM CDT Hospital Encounter [facility] Orthopedics [facility] Sports Medicine [address] [place] [phone] Discharge Disposition: Discharge to home or self care 08/11/2024 11:45 AM CDT Telemedicine [facility] [address] [place] [phone] Melania Zhang PA Aftercare following right hip joint replacement surgery (Primary Dx) 08/10/2024 Telephone [facility] [address] [place] [phone] Melania Zhang PA 08/01/2024 Telephone [facility] [address] [place] [phone] Melania Zhang PA 07/20/2024 8:30 AM BULK PICKER - 07/20/2024 10:55 AM BULK PICKER Surgery [facility] Operating Room 1 [place] [address] Julian Huang MD Right Total Hip Arthroplasty 07/20/2024 8:27 AM BULK PICKER Anesthesia Event [facility] Operating Room 1 [place] [address] Juana Hoang MD [place], Emenike Adolphus Jr., MD 07/20/2024 6:55 AM BULK PICKER - 07/20/2024 4:20 PM BULK PICKER Hospital Encounter [facility] Operating Room 1 [place] [address] Julian Huang MD Avascular necrosis of bone of right hip (HCC) (Primary Dx) Discharge Disposition: Discharge to home or self care 07/18/2024 11:00 AM BULK PICKER Lab [address] [phone] Right hip pain; Pre-operative exam 07/12/2024 Telephone [facility] Orthopedics and Sports Medicine [address] [facility] [address] [place] [address] Neha Hatfield MA surgery 07/11/2024 10:10 AM BULK PICKER Lab [address] [phone] Avascular necrosis of bone of right hip (HCC) 07/11/2024 10:04 AM BULK PICKER - 07/11/2024 11:59 PM BULK PICKER Hospital Encounter [facility] Imaging Center 1 [place] [address] Pre-operative exam Discharge Disposition: Discharge to home or self care 07/11/2024 10:03 AM BULK PICKER - 07/11/2024 11:59 PM BULK PICKER Hospital Encounter [facility] Cardiology 1 [place] [address] Right hip pain; Pre-operative exam Discharge Disposition: [...] 36.3 C (97.4 F) 07/20/2024 4:06 PM BULK PICKER Respiratory Rate 18 07/20/2024 4:06 PM BULK PICKER Oxygen Saturation 97% 07/20/2024 4:06 PM BULK PICKER Inhaled Oxygen Concentration - - Weight 80.3 [...] this topic Medical Devices Implanted Type Area Biofuels Production Associate Device Identifier Shelf Expiration Date Model / Serial / Lot [employer] [place] 6.5mm 35mm Acetabular Cancellous Screw Bone Sterile 1217-35-500 - [id number] Implanted:Qty: 1 on 07/20/2024 by Julian Huang MD at [facility] Right: Hip [employer] [id number] 04/16/2034 1217-35-500 / / [id number] [employer] Shell Acetabular Hip Porous 3 Hole Coated Emphasys 50mm Titanium [id number] - [id number] Implanted:Qty: 1 on 07/20/2024 by Julian Huang MD at [facility] Right: Hip [employer] [id number] 05/17/2034 [id number] / / [id number] [employer] Liner Acetabular Hip Standard Emphasys Aox 28m84br Polyethylene [id number] - [id number] Implanted:Qty: 1 on 07/20/2024 by Julian Huang MD at [facility] Right: Hip [employer] [id number] 04/16/2029 [id number] / / [id number] [employer] Actis Collared Hip 04/30 3 Standard Offset Stem Femoral [id number] - [id number] Implanted:Qty: 1 on 07/20/2024 by Julian Huang MD at [facility] Right: Hip [employer] [id number] 01/15/2034 [id number] / / [id number] [employer] Articul/Ted 36mm Cementless Hip +5mm 04/30 Taper Head Femoral Latex Free [id number] - [id number] Implanted:Qty: 1 on 07/20/2024 by Julian Huang MD at [facility] Right: Hip [employer] [id number] 02/14/2029 [id number] / / [id number] Procedures Procedure Name Priority Date/Time Associated Diagnosis Comments XR HIP RIGHT 2 OR 3 VIEWS Schedule Routine, Read Routine (OP Routine) 09/20/2024 11:29 AM CDT Aftercare following right hip joint replacement surgery SURGICAL PATHOLOGY Routine 07/20/2024 1: 04 PM BULK PICKER Avascular necrosis of bone of right hip (HCC) XR PELVIS ORTHO VIEW ED Urgent/IP Urgent 07/20/2024 10:36 AM BULK PICKER FL FLUOROSCOPY < 1 HOUR IP Routine 07/20/2024 10:00 AM BULK PICKER XR HIP RIGHT 1 VIEW IP Routine 07/20/2024 1 0:00 AM BULK PICKER ANESTHESIA SPINAL BLOCK Routine 07/20/2024 8:42 AM BULK PICKER ARTHROPLASTY TOTAL HIP - ANTERIOR APPROACH 07/20/2024 8:07 AM BULK PICKER Avascular necrosis of bone of right hip (HCC) Special Needs Anterior Approach, [Depuy- Actis], Omnitrac, Aquamantys, 1 liter beta rinse, Pt to go home APTT STAT 07/20/2024 7:26 AM BULK PICKER PROTIME-INR STAT 07/20/2024 7:26 AM BULK PICKER POCT HCG, URINE Routine 07/20/2024 7:16 AM BULK PICKER URINALYSIS AND REFLEX TO MICROSCOPIC AND CULTURE Routine 07/18/2024 11:45 AM BULK PICKER Right hip pain Pre-operative exam EGFR Routine 07/18/2024 11:42 AM BULK PICKER Right hip pain Pre-operative exam DIFFERENTIAL AUTO Routine 07/18/2024 11: 42 AM BULK PICKER Right hip pain Pre-operative exam CBC WITH AUTO DIFFERENTIAL Routine 07/18/2024 11:42 AM BULK PICKER Right hip pain Pre-operative exam COMPREHENSIVE METABOLIC PANEL Routine 07/18/2024 11:42 AM BULK PICKER Right hip pain Pre-operative exam HEMOGLOBIN A1C Routine 07/18/2024 11:42 AM BULK PICKER Right hip pain Pre-operative exam XR CHEST PA LATERAL 2 VIEWS Schedule Routine, Read Routine (OP Routine) 07/11/2024 10:42 AM BULK PICKER Pre-operative exam ECG 12-LEAD Routine 07/11/2024 10:33 AM BULK PICKER Right hip pain Pre-operative exam PROTIME-INR Routine 07/11/2024 10:12 AM BULK PICKER Avascular necrosis of bone of right hip (HCC) APTT Routine 07/11/2024 10:12 AM BULK PICKER Avascular necrosis of bone of right hip [...] from the time of surgery. Krysta Luo NP IMG XR PROCEDURES Final Result * Surgical pathology (07/20/2024 1:04 PM BULK PICKER) Tissue specimen (specimen) (Bone Fragment(s),) 07/20/2024 9:12 AM BULK PICKER Narrative PATHOLOGY [facility] - 07/22/2024 6:14 PM BULK PICKER EPIC results best viewed via link to PDF [facility] Department of Pathology [address] [place] [address] Note to Patients: This report may contain [...] Final Report Patient Name: LIZBET CAMP Address: [address] [place] [address] , [place] [address] Gender: F : 1975 (Age: 48) Service: Surgery Location: [facility] Hospital #: [id number] Patient Type: [facility] Taken: 07/20/2024 Received: 07/20/2024 Accessioned: 07/20/2024 Reported: 07/22/2024 Physician(s):Dr. Julian Huang M.D. Diagnosis: A. Right hip, total arthroplasty- Changes consistent with avascular necrosis Germania Almodovar M.D. Report Electronically Reviewed and Signed Out By Germania Almodovar M.D. 07/22/2024 18:14:34 Specimen(s) Received: A: right hip bone and tissue fragments Microscopic Description: Microscopic examination corroborates the diagnosis. Clinical History: Avascular necrosis of bone of right hip ([facility]) [M87.051] Right total hip arthroplasty Gross Description: [...] is bisected revealing no subchondral gross lesions. Dining Service Worker sections are submitted in one cassette after decalcification. Inocencia Potts R.N., P.A./Germania Almodovar M.D. REPORT IMAGES AND SCANNED DOCUMENTS, IF INCLUDED, ONLY VIEWABLE IN PDF VERSION OF REPORT The performance characteristics of some immunohistochemical stains, fluorescence in-situ hybridization tests and immunophenotyping by flow cytometry cited in this report (if any) were determined by the Surgical Pathology Department at [facility] as part of an ongoing fuel quality tech program and in compliance with federally mandated [...] characteristics determined by the Surgical Pathology Department [facility]. It has not been cleared or approved by the U. S. Food and Drug Administration. Note for decalcified specimens: This assay has not been validated on decalcified tissues. Results should be interpreted with caution given the possibility of false negativity on decalcified specimens Julian Huang MD LAB PATHOLOGY ORDERABLES Final Result PATHOLOGY [facility] ([place]) [address] [place] [address] * XR Pelvis Ortho View (07/20/2024 10:36 AM BULK PICKER) Anatomical Region Laterality Modality Body, Pelvis N/A Computed Radiogr aphy 07/20/2024 11:2 8 AM BULK PICKER Narrative 07/20/2024 11:29 AM BULK PICKER EXAM DESCRIPTION: XR PELVIS ORTHO VIEW REASON [...] Haim Cardona D.O. AP: AP Report ID: [id number] Reading Location: [id number] Procedure Note Haim Cadrona, DO - 07/20/2024 EXAM DESCRIPTION: XR PELVIS [...] Haim Cardona D.O. AP: AP Report ID: [id number] Reading Location: [place] [address] Julian Huang MD IMG XR PROCEDURES Final Result * FL Fluoroscopy < 1 Hour (07/20/2024 10:00 AM BULK PICKER) Narrative [facility] - 07/20/2024 10:01 AM BULK PICKER The images from this study are not interpreted by Radiology. Please refer to the physician's procedure / OR operative note. Julian Huang MD G FLUOROSCOPY PROCEDUR ES Final Result [facility] * XR Hip Right 1 View (07/20/2024 10:00 AM BULK PICKER) Anatomical Region Laterality Modality Lower Extremities, Hip, Pelvis Right R adio Fluoroscopy 07/23/2024 3:32 PM BULK PICKER Narrative 07/23/2024 3:33 PM BULK PICKER EXAM DESCRIPTION: XR HIP RIGHT 1 VIEW REASON FOR STUDY: pain Fluoro 13.2 mGy 1.32 FINDINGS: Multiple fluoroscopic images consisting of a single view(s) submitted with comparison 04/28/2024 . Dose area product equals [id number] mGym*2. Fluoroscopic images demonstrate an in progress right total hip arthroplasty placement . Soft tissue gas is present. IMPRESSION: In progress right total hip arthroplasty placement. THIS IS AN ELECTRONICALLY VERIFIED FINAL REPORT 07/23/2024 3:33 PM - Electronically signed by Richard Mejía M.D. MF: CODY Report ID: [id number] Reading Location: [id number] Procedure Note Richard Mejía MD - 07/23/2024 EXAM DESCRIPTION: XR HIP RIGHT 1 VIEW REASON FOR STUDY: pain Fluoro 13.2 mGy 1.32 FINDINGS: Multiple fluoroscopic images consisting of a single view(s) submittedwith comparison 04/28/2024 . Dose area product equals 0.65656 mGym*2. Fluoroscopic images demonstrate an in progress right total hiparthroplasty placement . Soft tissue gas is present. IMPRESSION: In progress right total hip arthroplasty placement. THIS IS AN ELECTRONICALLY VERIFIED FINAL REPORT 07/23/2024 3:33 PM - Electronically signed by Richard Mejía M.D. MF: CODY Report ID: [id number] Reading Location: [place] [address] Julian Huang MD IMG XR PROCEDURES Final Result * Spinal Block (07/20/2024 8:42 AM BULK PICKER) Narrative Kermit Khan CRNA - 07/20/2024 8:42 AM BULK PICKER Kermit Khan CRNA 07/20/2024 8:43 AM Spinal Block Patient location: OR End time: 07/20/2024 8:35 AM Reason for block: primary anesthetic Staff: Supervising provider: Juana Hoang MD Placed by: FABRIC [employer] TEXTILE FACTORY WORKER:Kermit Khan CRNA Procedure prep: Preprocedure checklist: patient [...] patient tolerated procedure well with no complications Juana Hoang MD ANESTHESIA ORDERABLES Fi nal Result * aPTT (07/20/2024 7:26 AM BULK PICKER) aPTT 35 28 - 38 sec [facility] ([place]) Comment: Interpretive Data Heparin therapeutic range: 66.0 - 100.0 seconds. Range based on correlation with therapeutic heparin activity range of 0.3 - 0.7 Units/mL. Current interpretive data was last revised on 2023. Blood 07/20/2024 7:26 AM BULK PICKER 07/20/2024 7:27 AM BULK PICKER Julian Huang MD LAB BLOOD ORDERABLES Fin al Result Performing Organization Address [facility] de Phone Number [facility] [address] [facility] [place] [address] * Protime-INR (07/20/2024 7:26 AM BULK PICKER) PT 10.4 9.7 - 13.0 sec [facility] ([place] INR 0.96 0.90 - 1.20 [facility] Comment: Interpretive data Oral anticoagulant therapeutic ranges: Venous thromboembolism prophylaxis or treatment: 2.0-3.0 CARDIOLOGY Standard range: 2.0-3.0 High-intensity range: 2.5-3.5 Refer to indication-specific guidelines for appropriate target ranges for prosthetic heart valve replacement. Current interpretive data was last revised on 2019. Blood 07/20/2024 7:26 AM BULK PICKER 07/20/2024 7:27 AM BULK PICKER Julian Huang MD LAB BLOOD ORDERABLES Fin al Result Performing Organization Address [facility]/ZIP Co de Phone Number [facility] [address] [facility] [place] [address] * POCT hCG, urine (07/20/2024 7:16 AM BULK PICKER) HCG, ur, POC Negative Negative Lot Number [id number] QC Backgroud Clear Acceptable QC Control Line Acceptable Urine 07/20/2024 7:16 AM BULK PICKER Maylin Cedeno Jr., MD POINT OF CARE ST ORDERABLES Final Result * Urinalysis reflex to microscopic and culture Urine (07/18/2024 11:45 AM BULK PICKER) Color, ur Yellow Yellow Clarity, ur Clear [...] tendency for uric acid stone formation. Source: [facility] [employer] Current Interpretive Data was last revised on [...] [facility] Urine 07/18/2024 11:4 5 AM BULK PICKER 07/18/2024 11:52 AM BULK PICKER Melania CADE LAB MICROBIOLOGY - NERAL ORDERABLES Final Result [facility] ([place]) [address] [facility] Department [place] [address] * eGFR (07/18/2024 11:42 AM BULK PICKER) Pathologist [facility] eGFR >90 >=60 mL/min/1. 73 m2 Comment: [...] reviewed 2021. Blood 07/18/2024 11:4 2 AM BULK PICKER 07/18/2024 11:51 AM BULK PICKER Melania CADE LAB BLOOD ORDERABLES Final Result [facility] [address] [facility] Department [place] [address] * Differential, auto (07/18/2024 11:42 AM BULK PICKER) Pathologist [facility] Neutrophil abs 5.5 1.5 - 6.5 K/cumm Imm gran abs 0.0 0.0 - 0.1 K/cumm [facility] ([place]) Lymphocyte abs 2.1 0.8 - 3.3 K/cumm [...] on 2017. Blood 07/18/2024 11:4 2 AM BULK PICKER 07/18/2024 11:51 AM BULK PICKER us Melania CADE LAB BLOOD ORDERABLES Final Result [facility] ([place]) [address] [facility] Department [place] [address] * (ABNORMAL) CBC with auto differential (07/18/2024 11:42 AM BULK PICKER) WBC 8.4 3.8 - 9.9 K/cumm Hgb 14.0 11.9 - 15.5 g/dL [facility] ([place]) Hct 44.3 35.6 - 45.5 % [facility] ([place]) Plt 359 150 - 400 K/cumm [facility] ([place]) MPV 9.5 9.1 - 12.3 fL [facility] ([place] RBC 4.64 3.90 - 5.20 M/cumm [facility] ([place]) MCV 95.5 81.3 - 96.4 fL [facility] ([place]) MCH 30.2 27.1 - 33.3 pg [facility] ([place]) MCHC 31.6(L) 32.3 - 35.7 g/dL [facility] ([place]) RDW CV 13.2 11.1 - 14.9 % [facility] ([place]) RDW SD 46.8 35.7 - 48.1 fL [facility] ([place]) NRBC abs 0.00 0.00 - 0.01 K/cumm [facility] ([place]) Blood 07/18/2024 11:4 2 AM BULK PICKER 07/18/2024 11:51 AM BULK PICKER Melania CADE LAB BLOOD ORDERABLES Final Result [facility] ([place] [address] [facility] Department [place] [address] * Hemoglobin A1c (07/18/2024 11:42 AM BULK PICKER) Hgb A1C 5.1 4.0 - 5.6 % Estimated Average Glucose 100 mg/dL [facility] ([place]) Comment: The ADA recommends reporting an estimated Average Glucose (eAG) with all Hemoglobin A1c results using the equation derived from a study of 507 normal and diabetic adults. Minority populations were underrepresented and children were not included. (Diabetes Care 31:2231-5677, 2008). The eAG is not equivalent to a fasting glucose. Blood 07/18/2024 11:4 2 AM BULK PICKER 07/18/2024 11:51 AM BULK PICKER us Melania CADE LAB BLOOD ORDERABLES Final Result [facility] [address] [facility] Department [place] [address] * Comprehensive metabolic panel (07/18/2024 11:42 AM BULK PICKER) Sodium 142 135 - 145 mmol/L Potassium, pl 4.4 3.3 - 4.9 mmol/L [facility] Chloride 107 97 - 110 mmol/L [facility] CO2 27 22 - 32 mmol/L [facility] Anion gap 9 2 - 15 mmol/L [facility] BUN 13 6 - 25 mg/dL [facility]) Creatinine 0.73 0.60 - 1.10 mg/dL [facility] Glucose 86 70 - 199 mg/dL [facility] Comment: Interpretive Data Fasting glucose >/= 126 mg/dl is diagnostic for diabetes. Fasting is defined as no caloric intake for at least 8 hours. Fasting glucose between 100 mg/dl to 125 mg/dl is diagnostic of prediabetes. In a patient with classic symptoms of hyperglycemia or hyperglycemic crisis, a random glucose >/= 200 mg/dl is diagnostic for diabetes. In the absence of unequivocal hyperglycemia, results should be confirmed by repeat testing. The classification and Diagnosis of Diabetes Diabetes Care 2021; 46: S19-S40. Current interpretive data was last revised 2022. Calcium 9.3 8.5 - 10.3 mg/dL [facility]) Bilirubin, total <0.2 0.1 - 1.2 mg/dL [facility]) Protein, pl 7.1 6.5 - 8.5 g/dL [facility]) Albumin 4.0 3.5 - 5.0 g/dL [facility] Alk phos 92 40 - 130 Units/L [facility] ALT 16 7 - 45 Units/L [facility] AST 15 10 - 45 Units/L [facility] Blood 07/18/2024 11:4 2 AM BULK PICKER 07/18/2024 11:51 AM BULK PICKER us Melania CADE LAB BLOOD ORDERABLES Final Result [facility] [place]) [address] [facility] Department [place] [address] * XR Chest Pa Lateral 2 Views (07/11/2024 10:42 AM BULK PICKER) Anatomical Region Laterality Modality Body, Chest N/A Computed Radiogr aphy 07/15/2024 3:52 PM BULK PICKER Narrative 07/15/2024 3:54 PM BULK PICKER EXAM DESCRIPTION: XR CHEST PA LATERAL 2 VIEWS REASON FOR STUDY: Preoperative evaluation for total hip arthroplasty. No provided patient complaints. Prior smoker without provided pack-year history or duration of cessation. History of hypertension. TECHNIQUE: Frontal and lateral radiographic view(s) of the chest. COMPARISON: Chest radiograph 05/26/2022. FINDINGS: LUNGS: No focal consolidation. No pleural effusion. No pneumothorax. HEART/MEDIASTINUM: Trachea midline. Heart normal in size and contour. Hilar and mediastinal structures unremarkable. LINES/TUBES: None. BONES: No acute osseous abnormality. IMPRESSION: No acute cardiopulmonary process. THIS IS AN ELECTRONICALLY VERIFIED FINAL REPORT 07/15/2024 3:54 PM - Electronically signed by Arthur Goodrich M.D. SARA: SARA Report ID: [id number] Reading Location: [id number] Procedure Note Arthur Goodrich MD - 07/15/2024 EXAM DESCRIPTION: XR CHEST PA LATERAL 2 VIEWS REASON FOR STUDY: Preoperative evaluation for total hip arthroplasty. No provided patient complaints. Prior smoker without provided pack-yearhistory or duration of cessation. History of hypertension. TECHNIQUE: Frontal and lateral radiographic view(s) of the chest. COMPARISON: Chest radiograph 05/26/2022. FINDINGS: LUNGS: No focal consolidation. No pleural effusion. No pneumothorax. HEART/MEDIASTINUM: Trachea midline. Heart normal in size and contour.Hilar and mediastinal structures unremarkable. LINES/TUBES: None. BONES: No acute osseous abnormality. IMPRESSION: No acute cardiopulmonary process. THIS IS AN ELECTRONICALLY VERIFIED FINAL REPORT 07/15/2024 3:54 PM - Electronically signed by Arthur Goodrich M.D. SARA: SARA Report ID: [id number] Reading Location: [id number] Melania CADE IMG XR PROCEDURES Fin al Result * ECG 12 lead (07/11/2024 10:33 AM BULK PICKER) 07/11/2024 10:3 5 AM BULK PICKER Narrative [facility] - 07/11/2024 12:36 PM BULK PICKER Vent Rate: 60 bpm RR Interval: 990 msec [place] Interval: 131 msec QRS Duration: 89 msec QT Interval: 411 msec QTC Interval: 412 msec P-R-T [place]: 37 - 58 - 53 degrees IMPRESSION: SINUS RHYTHM NORMAL ECG Electronically Signed By: Alessandro Matthew MD Melania CADE ECG ORDERABLES Final Result Performing Organization Address [facility] Co de Phone Number [facility] * aPTT (07/11/2024 10:12 AM BULK PICKER) aPTT 32 28 - 38 sec [facility] Comment: Interpretive Data Heparin therapeutic range: 66.0 - 100.0 seconds. Range based on correlation with therapeutic heparin activity range of 0.3 - 0.7 Units/mL. Current interpretive data was last revised on 2023. Blood 07/11/2024 10:1 2 AM BULK PICKER 07/11/2024 10:56 AM BULK PICKER Julian Huang MD LAB BLOOD ORDERABLES Fin al Result [facility] ([place] [address] [facility] Department [place] [address] * Protime-INR (07/11/2024 10:12 AM BULK PICKER) PT 10.3 9.7 - 13.0 sec [facility] ([place] INR 0.95 0.90 - 1.20 [facility] ([place] Comment: Interpretive data Oral anticoagulant therapeutic ranges: Venous thromboembolism prophylaxis or treatment: 2.0-3.0 CARDIOLOGY Standard range: 2.0-3.0 High-intensity range: 2.5-3.5 Refer to indication-specific guidelines for appropriate target ranges for prosthetic heart valve replacement. Current interpretive data was last revised on 2019. Blood 07/11/2024 10:1 2 AM BULK PICKER 07/11/2024 10:56 AM BULK PICKER us Julian Huang MD LAB BLOOD ORDERABLES Fin al Result [facility] ([place] [address] [facility] Department [place] [address] from Last 3 Months Insurance [facility] Advance Directives For more information, please contact: [phone] * Full Code (Latest Code Status on File) Date Activated Date Inactivated Comments 07/20/2024 11:17 AM 07/20/2024 8:25 PM Care Teams Rn Coronary Care Unit Relationship Specialty Start Date End Date Semaj Ricardo MD [address] [place] [address] PCP - General 10/18/18 Julian Huang MD [address] [place] [address] [address] BY[address] [facility] [place] [address] Surgeon Orthopedic Surgery 07/20/24
--- OUTSIDE RECORDS SUMMARY | 2024-10-04 10:40 | XMS_ITS | Clinical Summary ---
Author Organization [facility] [email or web address] Address [facility] [place] [address] Care Team Providers Care Intake Nurse Name Role Phone Unavailable Primary Care Provider Unavailabl e Source Comments [facility] [email or web address],non-owned Affiliates and Associated Physician Practices is amultiple site organization consisting of ambulatory clinics and hospital sitesin [place], [place], [place] and [place]. This disclosure is being madepursuant to the Care Everywhere program and may not contain all information available regarding this patient. Last updated [email or web address] Allergies No known active allergies Medications * [...] patient's age to complete this topic Insurance [id number] [place] [address] [facility] Advance Directives * Full Code (Latest Code Status on File) Date Activated Date Inactivated Comments 07/29/2021 7:53 PM 07/31/2021 3:16 PM
--- OUTSIDE RECORDS SUMMARY | 2024-10-04 10:40 | XMS_ITS | Referral Summary ---
Author Organization [facility] Address [address] [place] [address] Care Team Providers Care Residential Aide Name Role Phone Semaj Ricardo MD Primary Care Provide r Julian Huang MD Unavailable [phone] Encounters Date Type Department Care Team Description 09/20/2024 10:48 AM CDT - 09/20/2024 11:59 PM CDT Hospital Encounter [facility] Medical [facility] Orthopedics and Sports Medicine [address] [place] [address] [address], [place] [phone] Discharge Disposition: Discharge to home or self care 09/20/2024 11:30 AM CDT Office Visit [facility] Orthopedics and Sports Medicine [address] [place] [address] [address] [place] [phone] Krysta Luo NP Aftercare following right hip joint replacement surgery (Primary Dx) 08/11/2024 11:45 AM CDT Telemedicine [facility] Medical [facility] Orthopedics and Sports Medicine [address] [place] [address] [address] [place] [phone] Melania Zhang PA Aftercare following right hip joint replacement surgery (Primary Dx) 08/10/2024 Telephone [facility] Orthopedics and Sports Medicine [address] [place] [address] [address] [place] [phone] Melania Zhang PA 08/01/2024 Telephone [facility] Orthopedics and Sports Medicine [address] [place] [address] [address] [place] [phone] Melania Zhang PA 07/20/2024 8:30 AM GRADUATE NURSE - 07/20/2024 10:55 AM GRADUATE NURSE Surgery [facility] Operating Room [address] [place] [address] Julian Huang MD Right Total Hip Arthroplasty 07/20/2024 8:27 AM GRADUATE NURSE Anesthesia Event [facility] Operating Room [address] [place] [address] Juana Hoang MD [place], Emenike Adolphus Jr., MD 07/20/2024 6:55 AM GRADUATE NURSE - 07/20/2024 4:20 PM GRADUATE NURSE Hospital Encounter [facility] Operating Room [address] [place] [address] Julian Huang MD Avascular necrosis of bone of right hip (HCC) (Primary Dx) Discharge Disposition: Discharge to home or self care 07/18/2024 11:00 AM GRADUATE NURSE Lab [address] [address] Right hip pain; Pre-operative exam 07/12/2024 Telephone [facility] Orthopedics and Sports Medicine [address] [facility] [address] [place] [address] Neha Hatfield MA surgery 07/11/2024 10:10 AM GRADUATE NURSE [address] [address] Avascular necrosis of bone of right hip (HCC) 07/11/2024 10:04 AM GRADUATE NURSE - 07/11/2024 11:59 PM GRADUATE NURSE Hospital Encounter [facility] [address] [place] [address] Pre-operative exam Discharge Disposition: Discharge to home or self care 07/11/2024 10:03 AM GRADUATE NURSE - 07/11/2024 11:59 PM GRADUATE NURSE Hospital Encounter [facility] Cardiology [address] [place] [address] Right hip pain; Pre-operative exam Discharge Disposition: Discharge to home or self care from Last 3 Months Allergies No known active allergies Medications levothyroxine (SYNTHROID) 88 mcg tablet Take 1 tablet (88 mcg total) by mouth cloth washer back tender before breakfast Active levothyroxine (SYNTHROID) 100 mcg tablet Take 1 tablet (100 mcg total) by mouth cloth washer back tender before breakfast Active lisinopriL (PRINIVIL,ZEST RIL) 10 [...] 36.3 C (97.4 F) 07/20/2024 4:06 PM GRADUATE NURSE Respiratory Rate 18 07/20/2024 4:06 PM GRADUATE NURSE Oxygen Saturation 97% 07/20/2024 4:06 PM GRADUATE NURSE Inhaled Oxygen Concentration - - Weight 80.3 kg (177 lb) 09/20/2024 11:32 AM CDT Height 160 cm (5' 3 ) 09/20/2024 11:32 AM CDT Body Mass Index 31.35 09/20/2024 11:32 AM CDT Plan of Treatment Not on file Medical Devices Implanted Type Area Proposal Manager Device Identifier Shelf Expiration Date Model / Serial / Lot [employer] Tribune 6.5mm 35mm Acetabular Cancellous Screw Bone Sterile 1217-35-500 - [id number] Implanted:Qty: 1 on 07/20/2024 by Julian Huang MD at [facility] Right: Hip [employer] [id number] 04/16/2034 1217-35-500 / / [id number] [employer] Shell Acetabular Hip Porous 3 Hole Coated Emphasys 50mm Titanium [id number] - [id number] Implanted:Qty: 1 on 07/20/2024 by Julian Huang MD at [facility] Right: Hip [employer] [id number] 05/17/2034 [id number] / / [id number] [employer] Liner Acetabular Hip Standard Emphasys Aox 32h09iw Polyethylene [id number] - [id number] Implanted:Qty: 1 on 07/20/2024 by Julian Huang MD at [facility] Right: Hip [employer] [id number] 04/16/2029 [id number] / / [id number] [employer] Actis Collared Hip 04/30 3 Standard Offset Stem Femoral [id number] - [id number] Implanted:Qty: 1 on 07/20/2024 by Julian Huang MD at [facility] Right: Hip [employer] [id number] 01/15/2034 [id number] / / [id number] [employer] Articul/Ted 36mm Cementless Hip +5mm 04/30 Taper Head Femoral Latex Free [id number] - [id number] Implanted:Qty: 1 on 07/20/2024 by Julian Huang MD at [facility] Right: Hip [employer] [id number] 02/14/2029 [id number] / / [id number] Procedures Procedure Name Priority Date/Time Associated Diagnosis Comments XR HIP RIGHT 2 OR 3 VIEWS Schedule Routine, Read Routine (OP Routine) 09/20/2024 11:29 AM CDT Aftercare following right hip joint replacement surgery SURGICAL PATHOLOGY Routine 07/20/2024 1: 04 PM GRADUATE NURSE Avascular necrosis of bone of right hip (HCC) XR PELVIS ORTHO VIEW ED Urgent/IP Urgent 07/20/2024 10:36 AM GRADUATE NURSE FL FLUOROSCOPY < 1 HOUR IP Routine 07/20/2024 10:00 AM GRADUATE NURSE XR HIP RIGHT 1 VIEW IP Routine 07/20/2024 1 0:00 AM GRADUATE NURSE ANESTHESIA SPINAL BLOCK Routine 07/20/2024 8:42 AM GRADUATE NURSE ARTHROPLASTY TOTAL HIP - ANTERIOR APPROACH 07/20/2024 8:07 AM GRADUATE NURSE Avascular necrosis of bone of right hip (HCC) Special Needs Anterior Approach, [Depuy- Actis], Omnitrac, Aquamantys, 1 liter beta rinse, Pt to go home APTT STAT 07/20/2024 7:26 AM GRADUATE NURSE PROTIME-INR STAT 07/20/2024 7:26 AM GRADUATE NURSE POCT HCG, URINE Routine 07/20/2024 7:16 AM GRADUATE NURSE URINALYSIS AND REFLEX TO MICROSCOPIC AND CULTURE Routine 07/18/2024 11:45 AM GRADUATE NURSE Right hip pain Pre-operative exam EGFR Routine 07/18/2024 11:42 AM GRADUATE NURSE Right hip pain Pre-operative exam DIFFERENTIAL AUTO Routine 07/18/2024 11: 42 AM GRADUATE NURSE Right hip pain Pre-operative exam CBC WITH AUTO DIFFERENTIAL Routine 07/18/2024 11:42 AM GRADUATE NURSE Right hip pain Pre-operative exam COMPREHENSIVE METABOLIC PANEL Routine 07/18/2024 11:42 AM GRADUATE NURSE Right hip pain Pre-operative exam HEMOGLOBIN A1C Routine 07/18/2024 11:42 AM GRADUATE NURSE Right hip pain Pre-operative exam XR CHEST PA LATERAL 2 VIEWS Schedule Routine, Read Routine (OP Routine) 07/11/2024 10:42 AM GRADUATE NURSE Pre-operative exam ECG 12-LEAD Routine 07/11/2024 10:33 AM GRADUATE NURSE Right hip pain Pre-operative exam PROTIME-INR Routine 07/11/2024 10:12 AM GRADUATE NURSE Avascular necrosis of bone of right hip (HCC) APTT Routine 07/11/2024 10:12 AM GRADUATE NURSE Avascular necrosis of bone of right hip [...] the time of surgery. us Krysta Luo CONCRETE PRECAST MOULDER IMG XR PROCEDURES Final Result * Surgical pathology (07/20/2024 1:04 PM GRADUATE NURSE) Tissue specimen (specimen) (Bone Fragment(s),) 07/20/2024 9:12 AM GRADUATE NURSE Narrative PATHOLOGY [facility] ([place]) - 07/22/2024 6:14 PM GRADUATE NURSE EPIC results best viewed via link to PDF [facility] Department of Pathology [address] [place] [address] Note to Patients: This report may contain [...] Final Report Patient Name: LIZBET CAMP Address: [address] [place] [address] [place] [address] Gender: F : 1975 (Age: 48) Service: Surgery Location: [facility] Hospital #: [id number] Patient Type: [facility] Taken: 07/20/2024 Received: 07/20/2024 Accessioned: 07/20/2024 [...] is bisected revealing no subchondral gross lesions. Batter Mixer sections are submitted in one cassette after decalcification. Inocencia Potts R.N., PAntony./Germania Almodovar M.D. REPORT IMAGES AND SCANNED DOCUMENTS, IF INCLUDED, ONLY VIEWABLE IN PDF VERSION OF REPORT The performance characteristics of some immunohistochemical stains, fluorescence in-situ hybridization tests and immunophenotyping by flow cytometry cited in this report (if any) were determined by the Surgical Pathology Department at [facility] as part of an ongoing air quality engineer program and in compliance with federally mandated [...] characteristics determined by the Surgical Pathology Department [facility]. It has not been cleared or approved by the U. S. Food and Drug Administration. Note for decalcified specimens: This assay has not been validated on decalcified tissues. Results should be interpreted with caution given the possibility of false negativity on decalcified specimens us Julian Huang MD LAB PATHOLOGY ORDERABLES Final Result PATHOLOGY [facility] ([place]) [address] [place] [address] * XR Pelvis Ortho View (07/20/2024 10:36 AM GRADUATE NURSE) Anatomical Region Laterality Modality Body, Pelvis N/A Computed Radiogr aphy 07/20/2024 11:2 8 AM GRADUATE NURSE Narrative 07/20/2024 11:29 AM GRADUATE NURSE EXAM DESCRIPTION: XR PELVIS ORTHO VIEW REASON [...] Haim Cardona D.O. AP: AP Report ID: [id number] Reading Location: [id number] Procedure Note Haim Cardona, DO - 07/20/2024 [...] Haim Cardona D.O. AP: AP Report ID: [id number] Reading Location: [id number] us Julian Huang MD IMG XR PROCEDURES Final Result * FL Fluoroscopy < 1 Hour (07/20/2024 10:00 AM GRADUATE NURSE) Narrative [facility] - 07/20/2024 10:01 AM GRADUATE NURSE The images from this study are not interpreted by Radiology. Please refer to the physician's procedure / OR operative note. Julian Huang MD IMG FLUOROSCOPY PROCEDUR ES Final Result [facility] * XR Hip Right 1 View (07/20/2024 10:00 AM GRADUATE NURSE) Anatomical Region Laterality Modality Lower Extremities, Hip, Pelvis Right R adio Fluoroscopy 07/23/2024 3:32 PM GRADUATE NURSE Narrative 07/23/2024 3:33 PM GRADUATE NURSE EXAM DESCRIPTION: XR HIP RIGHT 1 VIEW REASON FOR STUDY: pain Fluoro 13.2 mGy 1.32 FINDINGS: Multiple fluoroscopic images consisting of a single view(s) submitted with comparison 04/28/2024 . Dose area product equals 0.13277 mGym*2. Fluoroscopic images demonstrate an in progress right total hip arthroplasty placement . Soft tissue gas is present. IMPRESSION: In progress right total hip arthroplasty placement. THIS IS AN ELECTRONICALLY VERIFIED FINAL REPORT 07/23/2024 3:33 PM - Electronically signed by Richard Mejía M.D. MF: CODY Report ID: [id number] Reading Location: [place] [address] Procedure Note Richard Mejía MD - 07/23/2024 EXAM DESCRIPTION: XR HIP RIGHT 1 VIEW REASON FOR STUDY: pain Fluoro 13.2 mGy 1.32 FINDINGS: Multiple fluoroscopic images consisting of a single view(s) submittedwith comparison 04/28/2024 . Dose area product equals 0.30025 mGym*2. Fluoroscopic images demonstrate an in progress right total hiparthroplasty placement . Soft tissue gas is present. IMPRESSION: In progress right total hip arthroplasty placement. THIS IS AN ELECTRONICALLY VERIFIED FINAL REPORT 07/23/2024 3:33 PM - Electronically signed by Richard ROSS: CODY Report ID: [id number] Reading Location: [place] [address] us Julian Huang MD IMG XR PROCEDURES Final Result * Spinal Block (07/20/2024 8:42 AM GRADUATE NURSE) Narrative Kermit Khan CRNA - 07/20/2024 8:42 AM GRADUATE NURSE Kermit Khan CRNA 07/20/2024 8:43 AM Spinal Block Patient location: OR End time: 07/20/2024 8:35 AM Reason for block: primary anesthetic Staff: Supervising provider: Juana Hoang MD Placed by: LEAD APPLICATION ARCHITECT:Kermit Khan CRNA Procedure prep: Preprocedure checklist: patient [...] nal Result * aPTT (07/20/2024 7:26 AM GRADUATE NURSE) aPTT 35 28 - 38 sec [facility] ([place]) Comment: Interpretive Data Heparin therapeutic range: 66.0 - 100.0 seconds. Range based on correlation with therapeutic heparin activity range of 0.3 - 0.7 Units/mL. Current interpretive data was last revised on 2023. Blood 07/20/2024 7:26 AM GRADUATE NURSE 07/20/2024 7:27 AM GRADUATE NURSE Julian Huang MD LAB BLOOD ORDERABLES Fin al Result Performing Organization Address [facility] Co de Phone Number [facility] ([place]) 1 [facility] [place] [address] * Protime-INR (07/20/2024 7:26 AM GRADUATE NURSE) PT 10.4 9.7 - 13.0 sec [facility] ([place]) INR 0.96 0.90 - 1.20 [facility] ([place]) Comment: Interpretive data Oral anticoagulant therapeutic ranges: Venous thromboembolism prophylaxis or treatment: 2.0-3.0 CARDIOLOGY Standard range: 2.0-3.0 High-intensity range: 2.5-3.5 Refer to indication-specific guidelines for appropriate target ranges for prosthetic heart valve replacement. Current interpretive data was last revised on 2019. Blood 07/20/2024 7:26 AM GRADUATE NURSE 07/20/2024 7:27 AM GRADUATE NURSE Julian uHang MD LAB BLOOD ORDERABLES Fin al Result Performing Organization Address [facility] Co de Phone Number [facility] ([place]) 1 [facility] [place] [address] * POCT hCG, urine (07/20/2024 7:16 AM GRADUATE NURSE) HCG, ur, POC Negative Negative Lot Number [id number] QC Backgroud Clear Acceptable QC Control Line Acceptable Urine 07/20/2024 7:16 AM GRADUATE NURSE Maylin Cedeno Jr., MD POINT OF CARE TE ST ORDERABLES Final Result * Urinalysis reflex to microscopic and culture Urine (07/18/2024 11:45 AM GRADUATE NURSE) Color, ur Yellow Yellow Clarity, ur Clear Clear [facility] ([place]) Specific gravity, ur 1.020 1.003 - 1.030 [facility] ([place]) pH, urine 8.0 [facility] ([place]) Comment: Interpretive Data U rine pH is affected by diet, medications, systemic acid-base disturbances, and renal tubular function. pH may affect urinary stone formation. For example, urine pH below 6.0 may help reduce the tendency for calcium phosphate stones and pH greater than 6.0 may reduce the tendency for uric acid stone formation. Source: [facility] Current Interpretive Data was last revised on [...] for microscopic UA and culture not met. [facility] ([place]) Urine 07/18/2024 11:4 5 AM GRADUATE NURSE 07/18/2024 11:52 AM GRADUATE NURSE Melania CADE LAB MICROBIOLOGY - NERAL ORDERABLES Final Result [facility] ([place]) 1 [facility] Department [place] [address] * eGFR (07/18/2024 11:42 AM GRADUATE NURSE) eGFR >90 >=60 mL/min/1. 73 m2 Comment: [...] reviewed 2021. Blood 07/18/2024 11:4 2 AM GRADUATE NURSE 07/18/2024 11:51 AM GRADUATE NURSE us Melania CADE LAB BLOOD ORDERABLES Final Result [facility] 1 [facility] Department [place] [address] * Differential, auto (07/18/2024 11:42 AM GRADUATE NURSE) Neutrophil abs 5.5 1.5 - 6.5 K/cumm [...] on 2017. Blood 07/18/2024 11:4 2 AM GRADUATE NURSE 07/18/2024 11:51 AM GRADUATE NURSE Melania CADE LAB BLOOD ORDERABLES Final Result [facility] ([place]) 1 [facility] Department [place] [address] * (ABNORMAL) CBC with auto differential (07/18/2024 11:42 AM GRADUATE NURSE) WBC 8.4 3.8 - 9.9 K/cumm Hgb [...] ([place]) MCH 30.2 27.1 - 33.3 pg [facility] ([place]) MCHC 31.6(L) 32.3 - 35.7 g/dL [facility] ([place]) RDW CV 13.2 11.1 - 14.9 % [facility] ([place]) RDW SD 46.8 35.7 - 48.1 fL [facility] ([place]) NRBC abs 0.00 0.00 - 0.01 K/cumm [facility] ([place]) Blood 07/18/2024 11:4 2 AM GRADUATE NURSE 07/18/2024 11:51 AM GRADUATE NURSE Melania CADE LAB BLOOD ORDERABLES Final Result Performing Organization Address [facility] Co de Phone Number [facility] ([place]) 1 [facility] [place] [address] * Hemoglobin A1c (07/18/2024 11:42 AM GRADUATE NURSE) Pathologist [facility] Hgb A1C 5.1 4.0 - 5.6 % Estimated Average Glucose 100 mg/dL [facility] ([place]) Comment: The ADA recommends reporting an estimated Average Glucose (eAG) with all Hemoglobin A1c results using the equation derived from a study of 507 normal and diabetic adults. Minority populations were underrepresented and children were not included. (Diabetes Care 31:2863-3838, 2008). The eAG is not equivalent to a fasting glucose. Blood 07/18/2024 11:4 2 AM GRADUATE NURSE 07/18/2024 11:51 AM GRADUATE NURSE Melania CADE LAB BLOOD ORDERABLES Final Result Performing Organization Address [facility] Co de Phone Number [facility] ([place]) 1 [facility] [place] [address] * Comprehensive metabolic panel (07/18/2024 11:42 AM GRADUATE NURSE) Sodium 142 135 - 145 mmol/L Potassium, pl 4.4 3.3 - 4.9 mmol/L [facility] ([place]) Chloride 107 97 - 110 mmol/L [facility] ([place]) CO2 27 22 - 32 mmol/L [facility] ([place]) Anion gap 9 2 - 15 mmol/L [facility] ([place]) BUN 13 6 - 25 mg/dL [facility] ([place]) Creatinine 0.73 0.60 - 1.10 mg/dL [...] 4.0 3.5 - 5.0 g/dL [facility] ([place]) Alk phos 92 40 - 130 Units/L [facility] ([place]) ALT 16 7 - 45 Units/L [facility] ([place]) AST 15 10 - 45 Units/L [facility] ([place]) Blood 07/18/2024 11:4 2 AM GRADUATE NURSE 07/18/2024 11:51 AM GRADUATE NURSE Melania CADE LAB BLOOD ORDERABLES Final Result [facility] ([place]) 1 [facility] Department [place] [address] * XR Chest Pa Lateral 2 Views (07/11/2024 10:42 AM GRADUATE NURSE) Anatomical Region Laterality Modality Body, Chest N/A Computed Radiogr aphy 07/15/2024 3:52 PM GRADUATE NURSE Narrative 07/15/2024 3:54 PM GRADUATE NURSE EXAM DESCRIPTION: XR CHEST PA LATERAL 2 [...] Arthur Goodrich M.D. SARA: SARA Report ID: [id number] Reading Location: [id number] Procedure Note Arthur Goodrich MD - 07/15/2024 [...] Arthur Goodrich M.D. SARA: SARA Report ID: [id number] Reading Location: [id number] Melania CADE IMG XR PROCEDURES Fin al Result * ECG 12 lead (07/11/2024 10:33 AM GRADUATE NURSE) 07/11/2024 10:3 5 AM GRADUATE NURSE Narrative [facility] - 07/11/2024 12:36 PM GRADUATE NURSE Vent Rate: 60 bpm RR Interval: 990 msec ID Interval: 131 msec QRS Duration: 89 msec QT Interval: 411 msec QTC Interval: 412 msec P-R-T [place]: 37 - 58 - 53 degrees IMPRESSION: SINUS RHYTHM NORMAL ECG Electronically Signed By: Alessandro Matthew MD Melania CADE ECG ORDERABLES Final Result Performing Organization Address [facility] Co de Phone Number [facility] * aPTT (07/11/2024 10:12 AM GRADUATE NURSE) aPTT 32 28 - 38 sec [facility] ([place]) Comment: Interpretive Data Heparin therapeutic range: 66.0 - 100.0 seconds. Range based on correlation with therapeutic heparin activity range of 0.3 - 0.7 Units/mL. Current interpretive data was last revised on 2023. Blood 07/11/2024 10:1 2 AM GRADUATE NURSE 07/11/2024 10:56 AM GRADUATE NURSE Julian Huang MD LAB BLOOD ORDERABLES Fin al Result Performing Organization Address [facility] de Phone Number [facility] ([place]) 1 [facility] [place] [address] * Protime-INR (07/11/2024 10:12 AM GRADUATE NURSE) PT 10.3 9.7 - 13.0 sec [facility] ([place]) INR 0.95 0.90 - 1.20 [facility] ([place]) Comment: Interpretive data Oral anticoagulant therapeutic ranges: Venous thromboembolism prophylaxis or treatment: 2.0-3.0 CARDIOLOGY Standard range: 2.0-3.0 High-intensity range: 2.5-3.5 Refer to indication-specific guidelines for appropriate target ranges for prosthetic heart valve replacement. Current interpretive data was last revised on 2019. Blood 07/11/2024 10:1 2 AM GRADUATE NURSE 07/11/2024 10:56 AM GRADUATE NURSE us Julian Huang MD LAB BLOOD ORDERABLES Fin al Result [facility] [place]) 1 [facility] [place] [address] from Last 3 Months Insurance [facility] Advance Directives For more information, please contact: [phone] * Full Code (Latest Code Status on File) Date Activated Date Inactivated Comments 07/20/2024 11:17 AM 07/20/2024 8:25 PM Care Teams Residential Aide Relationship Specialty Start Date End Date Semaj Ricardo MD [address] [place] [address] PCP - General 10/18/18 Julian Huang MD [address] [place] [address] [address] [place] [address] Surgeon Orthopedic Surgery 07/20/24
--- OUTSIDE RECORDS SUMMARY | 2024-10-04 10:40 | XMS_ITS | Patient Health Record ---
Author Organization [facility] Address [address] [place] [address] Care Team Providers Care Operations Mgr Name Role Phone Jocelyn Hogan Primary Care Provider Getachew Coulter Unavailable [phone] Allergies No Known Allergies Reason For Referral [...] with others, in a hotel, in a halfway, living outside on the street, on a beach, or in a park) Are you worried about losing your housing? No What is the highest level of school that you have finished? 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 Stress is when someone feels tense, nervous, anxious, or can\t sleep at night because their mind is troubled A little bit In the past year have you sp ent more than 2 nights in a row in a fci, correction, halfway center, or juvenile correctional facility? Yes Are [...] Status W/U Status Risk Notes Problem Insomnia (201969502) Insomnia (G47.00) Active confirmed Problem Posttraumatic stress disorder (53553705) PTSD (post-traumatic stress disorder) (F43.10) Active confirmed Problem Anxiety (03010193) Anxiety (F41.9) Active confirmed Problem Bipolar affective disorder (64347055) Bipolar affective disorder (F31.9) Active confirmed Problem Major depressive disorder (323201270) MDD (major depressive disorder) (F32.9) Active confirmed Problem Alcohol use disorder (5405456712) Alcohol use disorder (F10.99) Active confirmed Problem 693066071 Methamphetamine abuse (F15.10) Active confirmed Problem 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 confirmed Problem Stimulant dependence (507202184) Methamphetamine use disorder, severe, 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 Provided informed consent with understanding of [...] PCP next week, will send them to [facility] -Follow up: 4 weeks [] Hard Rx handed to patient [] Rx phoned into pharmacy [x] Rx faxed/e-prescribed into pharmacy [x] PDMP Reviewed [] [facility] Reviewed Encouraged by [facility]oc[facility]- to: [] consider utilizing therapist/counselor /social media content manager/psychologist , referral given [x] continue with therapist/counselor /social media content manager/psychologist Psychoeducation: -Treatment options discussed in detail with patient/guardian verbalizing understanding of treatment rationales. -Side effects and benefits of all medications prescribed discussed at length between psychiatric prescribing provider and patient/guardian along with the risks associated of [id number] interactions, including but not limited to prescription [...] engaged in treatment plan with [facility]ocelyn Hogan [facility] -Perceiving complete understanding of rationale by patient/guardian and willingness to adhere to formulated plan of care by prescriber with patient/guardian buy-in, willingness to participate actively in plan of care and willing to take charge of own care. -Although geared for female patients, all patients/guardians are informed by prescribing provider of risks of medications that could potentially be taken by female/women within their [place] of influence and that women who use [...] a should occur, to consult with provider, PSYCH TECH and/or Nurse Aircraft Instrument Repairer to determine if prescribed medications should or [...] Insured Coverage Start Date Coverage End Date [employer] [address] [place] [address] [id number] Lizbet Camp Self - patient is the insured 1 [employer] [address] [place] [address] [id number] Lizbet Camp Self - patient is the insured 1 Medical (General) History Medical History History ICD Code MDD (major depressive disorder) F32.9 Mood disorder F39 Methamphetamine Use Disorder Alcohol Use Disorder PTSD Surgical History Surgery Date(Month/Year) Hospitalization History Reason Date(Month/Year) Rehab in [place] 03/2022
--- NOTE | 2024-10-04 11:22 | PC.NURSE ---
pt states she was seen here 2 days ago and given rx for a bacterial infection, took her first dose this am
--- NOTE | 2024-10-04 12:26 | PC.NURSE ---
patient given urine cup and advised we need a sample. advised on how to properly cleanse before providing sample and shown to the bathroom.
--- OUTSIDE RECORDS SUMMARY | 2024-10-04 12:44 | XMS_ITS | Referral Summary ---
Author Organization [facility] Address [address] [place] [address] Care Team Providers Care Social Media Marketing Manager Name Role Phone Semaj Ricardo MD Primary Care Provide r Julian Huang MD Unavailable [phone] Encounters Date Type Department Care Team Description 09/20/2024 10:48 AM CDT - 09/20/2024 11:59 PM CDT Hospital Encounter [facility] Medical [facility] Orthopedics and Sports Medicine [address] [place] [address] [address] [phone] Discharge Disposition: Discharge to home or self care 09/20/2024 11:30 AM CDT Office Visit [facility] Orthopedics and Sports Medicine [address] [place] [address] [address] [place] [phone] Krysta Luo NP Aftercare following right hip joint replacement surgery (Primary Dx) 08/11/2024 11:45 AM CDT Telemedicine [facility] Medical [facility] Orthopedics and Sports Medicine [address] [place] [address] [address] [place] [phone] Melania Zhang PA Aftercare following right hip joint replacement surgery (Primary Dx) 08/10/2024 Telephone [facility] Orthopedics and Sports Medicine [address] [place] [address] [address] [place] [phone] Melania Zhang PA 08/01/2024 Telephone [facility] Orthopedics and Sports Medicine [address] [place] [address] [address] [place] [phone] Melania Zhang PA 07/20/2024 8:30 AM BEAD FLIPPER - 07/20/2024 10:55 AM BEAD FLIPPER Surgery [facility] Operating Room [address] [place] [address] Julian Huang MD Right Total Hip Arthroplasty 07/20/2024 8:27 AM BEAD FLIPPER Anesthesia Event [facility] Operating Room 1 [place] [address] Juana Hoang MD [place], Emenike Adolphus Jr., MD 07/20/2024 6:55 AM BEAD FLIPPER - 07/20/2024 4:20 PM BEAD FLIPPER Hospital Encounter [facility] Operating Room [address] [place] [address] Julian Huang MD Avascular necrosis of bone of right hip (HCC) (Primary Dx) Discharge Disposition: Discharge to home or self care 07/18/2024 11:00 AM BEAD FLIPPER Lab [address] [address] Right hip pain; Pre-operative exam 07/12/2024 Telephone [facility] Medical Group Orthopedics and Sports Medicine [address] [facility] [address] [place] [address] Neha Hatfield MA surgery 07/11/2024 10:10 AM BEAD FLIPPER [address] [address] Avascular necrosis of bone of right hip (HCC) 07/11/2024 10:04 AM BEAD FLIPPER - 07/11/2024 11:59 PM BEAD FLIPPER Hospital Encounter [facility] [address] [place] [address] Pre-operative exam Discharge Disposition: Discharge to home or self care 07/11/2024 10:03 AM BEAD FLIPPER - 07/11/2024 11:59 PM BEAD FLIPPER Hospital Encounter [facility] Cardiology [address] [place] [address] Right hip pain; Pre-operative exam Discharge Disposition: Discharge to home or self care from Last 3 Months Allergies No known active allergies Medications levothyroxine (SYNTHROID) 88 mcg tablet Take 1 tablet (88 mcg total) by mouth spinner fixer before breakfast Active levothyroxine (SYNTHROID) 100 mcg tablet Take 1 tablet (100 mcg total) by mouth spinner fixer before breakfast Active lisinopriL (PRINIVIL,ZEST RIL) 10 [...] 36.3 C (97.4 F) 07/20/2024 4:06 PM BEAD FLIPPER Respiratory Rate 18 07/20/2024 4:06 PM BEAD FLIPPER Oxygen Saturation 97% 07/20/2024 4:06 PM BEAD FLIPPER Inhaled Oxygen Concentration - - Weight 80.3 kg (177 lb) 09/20/2024 11:32 AM CDT Height 160 cm (5' 3 ) 09/20/2024 11:32 AM CDT Body Mass Index 31.35 09/20/2024 11:32 AM CDT Plan of Treatment Not on file Medical Devices Implanted Type Area Clinical Advisor Device Identifier Shelf Expiration Date Model / Serial / Lot [employer] West 6.5mm 35mm Acetabular Cancellous Screw Bone Sterile 1217-35-500 - [id number] Implanted:Qty: 1 on 07/20/2024 by Julian Huang MD at [facility] Right: Hip [employer] [id number] 04/16/2034 1217-35-500 / / [id number] [employer] Shell Acetabular Hip Porous 3 Hole Coated Emphasys 50mm Titanium [id number] - [id number] Implanted:Qty: 1 on 07/20/2024 by Julian Huang MD at [facility] Right: Hip [employer] [id number] 05/17/2034 [id number] / / [id number] [employer] Liner Acetabular Hip Standard Emphasys Aox 78i90tr Polyethylene [id number] - [id number] Implanted:Qty: 1 on 07/20/2024 by Julian Huang MD at [facility] Right: Hip [employer] [id number] 04/16/2029 [id number] / / [id number] [employer] Actis Collared Hip 04/30 3 Standard Offset Stem Femoral [id number] - [id number] Implanted:Qty: 1 on 07/20/2024 by Julian Huang MD at [facility] Right: Hip [employer] [id number] 01/15/2034 [id number] / / [id number] [employer] Articul/Ted 36mm Cementless Hip +5mm 04/30 Taper Head Femoral Latex Free [id number] - [id number] Implanted:Qty: 1 on 07/20/2024 by Julian Huang MD at [facility] Right: Hip [employer] [id number] 02/14/2029 [id number] / / [id number] Procedures Procedure Name Priority Date/Time Associated Diagnosis Comments XR HIP RIGHT 2 OR 3 VIEWS Schedule Routine, Read Routine (OP Routine) 09/20/2024 11:29 AM CDT Aftercare following right hip joint replacement surgery SURGICAL PATHOLOGY Routine 07/20/2024 1: 04 PM BEAD FLIPPER Avascular necrosis of bone of right hip (HCC) XR PELVIS ORTHO VIEW ED Urgent/IP Urgent 07/20/2024 10:36 AM BEAD FLIPPER FL FLUOROSCOPY < 1 HOUR IP Routine 07/20/2024 10:00 AM BEAD FLIPPER XR HIP RIGHT 1 VIEW IP Routine 07/20/2024 1 0:00 AM BEAD FLIPPER ANESTHESIA SPINAL BLOCK Routine 07/20/2024 8:42 AM BEAD FLIPPER ARTHROPLASTY TOTAL HIP - ANTERIOR APPROACH 07/20/2024 8:07 AM BEAD FLIPPER Avascular necrosis of bone of right hip (HCC) Special Needs Anterior Approach, [Depuy- Actis], Omnitrac, Aquamantys, 1 liter beta rinse, Pt to go home APTT STAT 07/20/2024 7:26 AM BEAD FLIPPER PROTIME-INR STAT 07/20/2024 7:26 AM BEAD FLIPPER POCT HCG, URINE Routine 07/20/2024 7:16 AM BEAD FLIPPER URINALYSIS AND REFLEX TO MICROSCOPIC AND CULTURE Routine 07/18/2024 11:45 AM BEAD FLIPPER Right hip pain Pre-operative exam EGFR Routine 07/18/2024 11:42 AM BEAD FLIPPER Right hip pain Pre-operative exam DIFFERENTIAL AUTO Routine 07/18/2024 11: 42 AM BEAD FLIPPER Right hip pain Pre-operative exam CBC WITH AUTO DIFFERENTIAL Routine 07/18/2024 11:42 AM BEAD FLIPPER Right hip pain Pre-operative exam COMPREHENSIVE METABOLIC PANEL Routine 07/18/2024 11:42 AM BEAD FLIPPER Right hip pain Pre-operative exam HEMOGLOBIN A1C Routine 07/18/2024 11:42 AM BEAD FLIPPER Right hip pain Pre-operative exam XR CHEST PA LATERAL 2 VIEWS Schedule Routine, Read Routine (OP Routine) 07/11/2024 10:42 AM BEAD FLIPPER Pre-operative exam ECG 12-LEAD Routine 07/11/2024 10:33 AM BEAD FLIPPER Right hip pain Pre-operative exam PROTIME-INR Routine 07/11/2024 10:12 AM BEAD FLIPPER Avascular necrosis of bone of right hip (HCC) APTT Routine 07/11/2024 10:12 AM BEAD FLIPPER Avascular necrosis of bone of right hip [...] the time of surgery. us Krysta Luo ELECTORAL OFFICER IMG XR PROCEDURES Final Result * Surgical pathology (07/20/2024 1:04 PM BEAD FLIPPER) Tissue specimen (specimen) (Bone Fragment(s),) 07/20/2024 9:12 AM BEAD FLIPPER Narrative PATHOLOGY [facility] - 07/22/2024 6:14 PM BEAD FLIPPER EPIC results best viewed via link to PDF [facility] Department of Pathology [address] [place] [address] Note to Patients: This report may contain [...] Final Report Patient Name: LIZBET CAMP Address: [address] [place] [address] [place] [address] Gender: F : 1975 (Age: 48) Service: Surgery Location: [facility] Hospital #: [id number] Patient Type: [facility] Taken: 07/20/2024 Received: 07/20/2024 Accessioned: 07/20/2024 [...] is bisected revealing no subchondral gross lesions. Brickmason Contractor sections are submitted in one cassette after decalcification. Inocencia Potts R.N., PAntony./Germania Almodovar M.D. REPORT IMAGES AND SCANNED DOCUMENTS, IF INCLUDED, ONLY VIEWABLE IN PDF VERSION OF REPORT The performance characteristics of some immunohistochemical stains, fluorescence in-situ hybridization tests and immunophenotyping by flow cytometry cited in this report (if any) were determined by the Surgical Pathology Department at [facility] as part of an ongoing quality assurance analyst program and in compliance with federally mandated [...] characteristics determined by the Surgical Pathology Department [facility]. It has not been cleared or approved by the U. S. Food and Drug Administration. Note for decalcified specimens: This assay has not been validated on decalcified tissues. Results should be interpreted with caution given the possibility of false negativity on decalcified specimens us Julian Huang MD LAB PATHOLOGY ORDERABLES Final Result PATHOLOGY [facility] [address] [place] [address] * XR Pelvis Ortho View (07/20/2024 10:36 AM BEAD FLIPPER) Anatomical Region Laterality Modality Body, Pelvis N/A Computed Radiogr aphy 07/20/2024 11:2 8 AM BEAD FLIPPER Narrative 07/20/2024 11:29 AM BEAD FLIPPER EXAM DESCRIPTION: XR PELVIS ORTHO VIEW REASON [...] Haim Cardona D.O. AP: AP Report ID: [id number] Reading Location: [id number] Procedure Note Haim Cardona, DO - 07/20/2024 [...] Haim Cardona D.O. AP: AP Report ID: [id number] Reading Location: [id number] us Julian Huang MD IMG XR PROCEDURES Final Result * FL Fluoroscopy < 1 Hour (07/20/2024 10:00 AM BEAD FLIPPER) Narrative [facility] - 07/20/2024 10:01 AM BEAD FLIPPER The images from this study are not interpreted by Radiology. Please refer to the physician's procedure / OR operative note. Julian Huang MD IMG FLUOROSCOPY PROCEDUR ES Final Result [facility] * XR Hip Right 1 View (07/20/2024 10:00 AM BEAD FLIPPER) Anatomical Region Laterality Modality Lower Extremities, Hip, Pelvis Right R adio Fluoroscopy 07/23/2024 3:32 PM BEAD FLIPPER Narrative 07/23/2024 3:33 PM BEAD FLIPPER EXAM DESCRIPTION: XR HIP RIGHT 1 VIEW REASON FOR STUDY: pain Fluoro 13.2 mGy 1.32 FINDINGS: Multiple fluoroscopic images consisting of a single view(s) submitted with comparison 04/28/2024 . Dose area product equals 0.91747 mGym*2. Fluoroscopic images demonstrate an in progress right total hip arthroplasty placement . Soft tissue gas is present. IMPRESSION: In progress right total hip arthroplasty placement. THIS IS AN ELECTRONICALLY VERIFIED FINAL REPORT 07/23/2024 3:33 PM - Electronically signed by Richard Mejía M.D. MF: CODY Report ID: [id number] Reading Location: [place] [address] Procedure Note Richard Mejía MD - 07/23/2024 EXAM DESCRIPTION: XR HIP RIGHT 1 VIEW REASON FOR STUDY: pain Fluoro 13.2 mGy 1.32 FINDINGS: Multiple fluoroscopic images consisting of a single view(s) submittedwith comparison 04/28/2024 . Dose area product equals 0.51441 mGym*2. Fluoroscopic images demonstrate an in progress right total hiparthroplasty placement . Soft tissue gas is present. IMPRESSION: In progress right total hip arthroplasty placement. THIS IS AN ELECTRONICALLY VERIFIED FINAL REPORT 07/23/2024 3:33 PM - Electronically signed by Richard ROSS: CODY Report ID: [id number] Reading Location: [place] [address] us Julian Huang MD IMG XR PROCEDURES Final Result * Spinal Block (07/20/2024 8:42 AM BEAD FLIPPER) Narrative Kermit Khan CRNA - 07/20/2024 8:42 AM BEAD FLIPPER Kermit Khan CRNA 07/20/2024 8:43 AM Spinal Block Patient location: OR End time: 07/20/2024 8:35 AM Reason for block: primary anesthetic Staff: Supervising provider: Juana Hoang MD Placed by: TANNING WHEEL FILLER:Kermit Khan CRNA Procedure prep: Preprocedure checklist: patient [...] nal Result * aPTT (07/20/2024 7:26 AM BEAD FLIPPER) aPTT 35 28 - 38 sec [facility] ([place]) Comment: Interpretive Data Heparin therapeutic range: 66.0 - 100.0 seconds. Range based on correlation with therapeutic heparin activity range of 0.3 - 0.7 Units/mL. Current interpretive data was last revised on 2023. Blood 07/20/2024 7:26 AM BEAD FLIPPER 07/20/2024 7:27 AM BEAD FLIPPER Julian Huang MD LAB BLOOD ORDERABLES Fin al Result Performing Organization Address [facility] Co de Phone Number [facility] ([place]) 1 [facility] [place] [address] * Protime-INR (07/20/2024 7:26 AM BEAD FLIPPER) PT 10.4 9.7 - 13.0 sec [facility] INR 0.96 0.90 - 1.20 [facility] Comment: Interpretive data Oral anticoagulant therapeutic ranges: Venous thromboembolism prophylaxis or treatment: 2.0-3.0 CARDIOLOGY Standard range: 2.0-3.0 High-intensity range: 2.5-3.5 Refer to indication-specific guidelines for appropriate target ranges for prosthetic heart valve replacement. Current interpretive data was last revised on 2019. Blood 07/20/2024 7:26 AM BEAD FLIPPER 07/20/2024 7:27 AM BEAD FLIPPER Julian Huang MD LAB BLOOD ORDERABLES Fin al Result Performing Organization Address [facility] Co de Phone Number [facility] ([place] 1 [facility] [employer] [place] [address] * POCT hCG, urine (07/20/2024 7:16 AM BEAD FLIPPER) HCG, ur, POC Negative Negative Lot Number [id number] QC Backgroud Clear Acceptable QC Control Line Acceptable Urine 07/20/2024 7:16 AM BEAD FLIPPER Maylin Cedeno Jr., MD POINT OF CARE TE ST ORDERABLES Final Result * Urinalysis reflex to microscopic and culture Urine (07/18/2024 11:45 AM BEAD FLIPPER) Color, ur Yellow Yellow Clarity, ur Clear Clear [facility] ([place]) Specific gravity, ur 1.020 1.003 - 1.030 [facility] pH, urine 8.0 [facility] ([place]) Comment: Interpretive Data U rine pH is affected by diet, medications, systemic acid-base disturbances, and renal tubular function. pH may affect urinary stone formation. For example, urine pH below 6.0 may help reduce the tendency for calcium phosphate stones and pH greater than 6.0 may reduce the tendency for uric acid stone formation. Source: [facility] Current Interpretive Data was [...] [facility] ([place]) Urine 07/18/2024 11:4 5 AM BEAD FLIPPER 07/18/2024 11:52 AM BEAD FLIPPER Melania CADE LAB MICROBIOLOGY - NERAL ORDERABLES Final Result [facility] ([place]) [address] [facility] Department [place] [address] * eGFR (07/18/2024 11:42 AM BEAD FLIPPER) eGFR >90 >=60 mL/min/1. 73 m2 Comment: [...] reviewed 2021. Blood 07/18/2024 11:4 2 AM BEAD FLIPPER 07/18/2024 11:51 AM BEAD FLIPPER us Melania CADE LAB BLOOD ORDERABLES Final Result [facility] [address] [facility] Department [place] [address] * Differential, auto (07/18/2024 11:42 AM BEAD FLIPPER) Neutrophil abs 5.5 1.5 - 6.5 K/cumm [...] on 2017. Blood 07/18/2024 11:4 2 AM BEAD FLIPPER 07/18/2024 11:51 AM BEAD FLIPPER Melania CADE LAB BLOOD ORDERABLES Final Result [facility] ([place]) [address] [facility] Department [place] [address] * (ABNORMAL) CBC with auto differential (07/18/2024 11:42 AM BEAD FLIPPER) WBC 8.4 3.8 - 9.9 K/cumm Hgb [...] RDW SD 46.8 35.7 - 48.1 fL [facility] ([place]) NRBC abs 0.00 0.00 - 0.01 K/cumm [facility] ([place]) Blood 07/18/2024 11:4 2 AM BEAD FLIPPER 07/18/2024 11:51 AM BEAD FLIPPER Melania CADE LAB BLOOD ORDERABLES Final Result Performing Organization Address [facility] Co de Phone Number [facility] [address] [facility] [place] [address] * Hemoglobin A1c (07/18/2024 11:42 AM BEAD FLIPPER) Pathologist [facility] Hgb A1C 5.1 4.0 - 5.6 % Estimated Average Glucose 100 mg/dL [facility] Comment: The ADA recommends reporting an estimated Average Glucose (eAG) with all Hemoglobin A1c results using the equation derived from a study of 507 normal and diabetic adults. Minority populations were underrepresented and children were not included. (Diabetes Care 31:0125-2427, 2008). The eAG is not equivalent to a fasting glucose. Blood 07/18/2024 11:4 2 AM BEAD FLIPPER 07/18/2024 11:51 AM BEAD FLIPPER Melania CADE LAB BLOOD ORDERABLES Final Result Performing Organization Address [facility] Co de Phone Number [facility] [address] [facility] [place] [address] * Comprehensive metabolic panel (07/18/2024 11:42 AM BEAD FLIPPER) Sodium 142 135 - 145 mmol/L Potassium, pl 4.4 3.3 - 4.9 mmol/L [facility] ([place]) Chloride 107 97 - 110 mmol/L [facility]) CO2 27 22 - 32 mmol/L [facility] ([place]) Anion gap 9 2 - 15 mmol/L [facility] ([place]) BUN 13 6 - 25 mg/dL [facility] ([place]) Creatinine 0.73 0.60 - 1.10 mg/dL [...] [facility] ([place]) Blood 07/18/2024 11:4 2 AM BEAD FLIPPER 07/18/2024 11:51 AM BEAD FLIPPER Melania CADE LAB BLOOD ORDERABLES Final Result [facility] ([place]) [address] [facility] Department [place] [address] * XR Chest Pa Lateral 2 Views (07/11/2024 10:42 AM BEAD FLIPPER) Anatomical Region Laterality Modality Body, Chest N/A Computed Radiogr aphy 07/15/2024 3:52 PM BEAD FLIPPER Narrative 07/15/2024 3:54 PM BEAD FLIPPER EXAM DESCRIPTION: XR CHEST PA LATERAL 2 [...] Arthur Goodrich M.D. SARA: SARA Report ID: [id number] Reading Location: [id number] Procedure Note Arthur Goodrich MD - 07/15/2024 [...] Arthur Goodrich M.D. SARA: SARA Report ID: [id number] Reading Location: [id number] Melania CADE IMG XR PROCEDURES Fin al Result * ECG 12 lead (07/11/2024 10:33 AM BEAD FLIPPER) 07/11/2024 10:3 5 AM BEAD FLIPPER Narrative [facility] - 07/11/2024 12:36 PM BEAD FLIPPER Vent Rate: 60 bpm RR Interval: 990 msec MO Interval: 131 msec QRS Duration: 89 msec QT Interval: 411 msec QTC Interval: 412 msec P-R-T [place]: 37 - 58 - 53 degrees IMPRESSION: SINUS RHYTHM NORMAL ECG Electronically Signed By: Alessandro Matthew MD Melania CADE ECG ORDERABLES Final Result Performing Organization Address [facility] Co de Phone Number [facility] * aPTT (07/11/2024 10:12 AM BEAD FLIPPER) aPTT 32 28 - 38 sec [facility] ([place]) Comment: Interpretive Data Heparin therapeutic range: 66.0 - 100.0 seconds. Range based on correlation with therapeutic heparin activity range of 0.3 - 0.7 Units/mL. Current interpretive data was last revised on 2023. Blood 07/11/2024 10:1 2 AM BEAD FLIPPER 07/11/2024 10:56 AM BEAD FLIPPER Julian Huang MD LAB BLOOD ORDERABLES Fin al Result Performing Organization Address [facility] de Phone Number [facility] [address] [facility] [place] [address] * Protime-INR (07/11/2024 10:12 AM BEAD FLIPPER) PT 10.3 9.7 - 13.0 sec [facility] ([place]) INR 0.95 0.90 - 1.20 [facility] ([place]) Comment: Interpretive data Oral anticoagulant therapeutic ranges: Venous thromboembolism prophylaxis or treatment: 2.0-3.0 CARDIOLOGY Standard range: 2.0-3.0 High-intensity range: 2.5-3.5 Refer to indication-specific guidelines for appropriate target ranges for prosthetic heart valve replacement. Current interpretive data was last revised on 2019. Blood 07/11/2024 10:1 2 AM BEAD FLIPPER 07/11/2024 10:56 AM BEAD FLIPPER us Julian Huang MD LAB BLOOD ORDERABLES Fin al Result [facility]) [address] [facility] [place] [address] from Last 3 Months Insurance [facility] Advance Directives For more information, please contact: [phone] * Full Code (Latest Code Status on File) Date Activated Date Inactivated Comments 07/20/2024 11:17 AM 07/20/2024 8:25 PM Care Teams Social Media Marketing Manager Relationship Specialty Start Date End Date Semaj Ricardo MD [address] [place] [address] PCP - General 10/18/18 Julian Huang MD [address] [place] [address] [address] [place] [address] Surgeon Orthopedic Surgery 07/20/24
--- OUTSIDE RECORDS SUMMARY | 2024-10-04 12:44 | XMS_ITS | Clinical Summary ---
Author Organization [facility] [employer] Address [facility] [place] [address] Care Team Providers Care Resident Program Specialist Name Role Phone Unavailable Primary Care Provider Unavailabl e Source Comments [facility] [employer],non-owned Affiliates and Associated Physician Practices is amultiple site organization consisting of ambulatory clinics and hospital sitesin [place], [place], [place] and [place]. This disclosure is being madepursuant to the Care Everywhere program and may not contain all information available regarding this patient. Last updated 18.[employer]giorno [employer] Allergies No known active allergies Medications * [...] patient's age to complete this topic Insurance [id number] [place] [address] [facility] Advance Directives * Full Code (Latest Code Status on File) Date Activated Date Inactivated Comments 07/29/2021 7:53 PM 07/31/2021 3:16 PM
--- OUTSIDE RECORDS SUMMARY | 2024-10-04 12:44 | XMS_ITS | Clinical Summary ---
Author Organization [facility] Address [address] [place] [address] Care Team Providers Care Senior Applications Analyst Name Role Phone Semaj Ricardo MD Primary Care Provide r Julian Huang MD Unavailable [phone] Allergies No known active allergies Medications levothyroxine (SYNTHROID) 88 mcg tablet Take 1 tablet (88 mcg total) by mouth medicare compliance auditor before breakfast Active levothyroxine (SYNTHROID) 100 mcg tablet Take 1 tablet (100 mcg total) by mouth medicare compliance auditor before breakfast Active lisinopriL (PRINIVIL,ZEST RIL) 10 [...] Description 09/20/2024 11:30 AM CDT Office Visit [facility] Orthopedics and Sports Medicine [address] [place] [phone] Krysta Luo NP Aftercare following right hip joint replacement surgery (Primary Dx) 09/20/2024 10:48 AM CDT - 09/20/2024 11:59 PM CDT Hospital Encounter [facility] Orthopedics and Sports Medicine [address] [place] [phone] Discharge Disposition: Discharge to home or self care 08/11/2024 11:45 AM CDT Telemedicine [facility] Orthopedics and Sports Medicine [address] [place] [phone] Melania Zhang PA Aftercare following right hip joint replacement surgery (Primary Dx) 08/10/2024 Telephone [facility] Orthopedics and Sports Medicine [address] [place] [phone] Melania Zhang PA 08/01/2024 Telephone [facility] Orthopedics and Sports Medicine [address] [place] [phone] Melania Zhang PA 07/20/2024 8:30 AM CORPORATE REAL ESTATE SPECIALIST - 07/20/2024 10:55 AM CORPORATE REAL ESTATE SPECIALIST Surgery [facility] Operating Room [address] [place] [address] Julian Huang MD Right Total Hip Arthroplasty 07/20/2024 8:27 AM CORPORATE REAL ESTATE SPECIALIST Anesthesia Event [facility] Operating Room [address] [place] [address] Juana Hoang MD [place], Emenike Adolphus Jr., MD 07/20/2024 6:55 AM CORPORATE REAL ESTATE SPECIALIST - 07/20/2024 4:20 PM CORPORATE REAL ESTATE SPECIALIST Hospital Encounter [facility] Operating Room [address] [place] [address] Julian Huang MD Avascular necrosis of bone of right hip (HCC) (Primary Dx) Discharge Disposition: Discharge to home or self care 07/18/2024 11:00 AM CORPORATE REAL ESTATE SPECIALIST Lab [address] [phone] Right hip pain; Pre-operative exam 07/12/2024 Telephone [facility] Orthopedics and Sports Medicine [address] [facility] [address] [place] [address] Neha Hatfield MA surgery 07/11/2024 10:10 AM CORPORATE REAL ESTATE SPECIALIST Lab [address] [phone] Avascular necrosis of bone of right hip (HCC) 07/11/2024 10:04 AM CORPORATE REAL ESTATE SPECIALIST - 07/11/2024 11:59 PM CORPORATE REAL ESTATE SPECIALIST Hospital Encounter [facility] Imaging Center [address] [place] [address] Pre-operative exam Discharge Disposition: Discharge to home or self care 07/11/2024 10:03 AM CORPORATE REAL ESTATE SPECIALIST - 07/11/2024 11:59 PM CORPORATE REAL ESTATE SPECIALIST Hospital Encounter [facility] Cardiology [address] [place] [address] Right hip pain; Pre-operative exam Discharge Disposition: [...] 36.3 C (97.4 F) 07/20/2024 4:06 PM CORPORATE REAL ESTATE SPECIALIST Respiratory Rate 18 07/20/2024 4:06 PM CORPORATE REAL ESTATE SPECIALIST Oxygen Saturation 97% 07/20/2024 4:06 PM CORPORATE REAL ESTATE SPECIALIST Inhaled Oxygen Concentration - - Weight 80.3 [...] this topic Medical Devices Implanted Type Area Electronic Die Maker Device Identifier Shelf Expiration Date Model / Serial / Lot [employer] [place] 6.5mm 35mm Acetabular Cancellous Screw Bone Sterile 1217-35-500 - [id number] Implanted:Qty: 1 on 07/20/2024 by Julian Huang MD at [facility] Right: Hip [employer] [id number] 04/16/2034 1217-35-500 / / [id number] [employer] Shell Acetabular Hip Porous 3 Hole Coated Emphasys 50mm Titanium [id number] - [id number] Implanted:Qty: 1 on 07/20/2024 by Julian Huang MD at [facility] Right: Hip [employer] [id number] 05/17/2034 [id number] / / [id number] [employer] Liner Acetabular Hip Standard Emphasys Aox 88g67hp Polyethylene [id number] - [id number] Implanted:Qty: 1 on 07/20/2024 by Julian Huang MD at [facility] Right: Hip [employer] [id number] 04/16/2029 [id number] / / [id number] [employer] Actis Collared Hip 04/30 3 Standard Offset Stem Femoral [id number] - [id number] Implanted:Qty: 1 on 07/20/2024 by Julian Huang MD at [facility] Right: Hip [employer] [id number] 01/15/2034 [id number] / / [id number] [employer] Articul/Ted 36mm Cementless Hip +5mm 04/30 Taper Head Femoral Latex Free [id number] - [id number] Implanted:Qty: 1 on 07/20/2024 by Julian Huang MD at [facility] Right: Hip [employer] [id number] 02/14/2029 [id number] / / [id number] Procedures Procedure Name Priority Date/Time Associated Diagnosis Comments XR HIP RIGHT 2 OR 3 VIEWS Schedule Routine, Read Routine (OP Routine) 09/20/2024 11:29 AM CDT Aftercare following right hip joint replacement surgery SURGICAL PATHOLOGY Routine 07/20/2024 1: 04 PM CORPORATE REAL ESTATE SPECIALIST Avascular necrosis of bone of right hip (HCC) XR PELVIS ORTHO VIEW ED Urgent/IP Urgent 07/20/2024 10:36 AM CORPORATE REAL ESTATE SPECIALIST FL FLUOROSCOPY < 1 HOUR IP Routine 07/20/2024 10:00 AM CORPORATE REAL ESTATE SPECIALIST XR HIP RIGHT 1 VIEW IP Routine 07/20/2024 1 0:00 AM CORPORATE REAL ESTATE SPECIALIST ANESTHESIA SPINAL BLOCK Routine 07/20/2024 8:42 AM CORPORATE REAL ESTATE SPECIALIST ARTHROPLASTY TOTAL HIP - ANTERIOR APPROACH 07/20/2024 8:07 AM CORPORATE REAL ESTATE SPECIALIST Avascular necrosis of bone of right hip (HCC) Special Needs Anterior Approach, [Depuy- Actis], Omnitrac, Aquamantys, 1 liter beta rinse, Pt to go home APTT STAT 07/20/2024 7:26 AM CORPORATE REAL ESTATE SPECIALIST PROTIME-INR STAT 07/20/2024 7:26 AM CORPORATE REAL ESTATE SPECIALIST POCT HCG, URINE Routine 07/20/2024 7:16 AM CORPORATE REAL ESTATE SPECIALIST URINALYSIS AND REFLEX TO MICROSCOPIC AND CULTURE Routine 07/18/2024 11:45 AM CORPORATE REAL ESTATE SPECIALIST Right hip pain Pre-operative exam EGFR Routine 07/18/2024 11:42 AM CORPORATE REAL ESTATE SPECIALIST Right hip pain Pre-operative exam DIFFERENTIAL AUTO Routine 07/18/2024 11: 42 AM CORPORATE REAL ESTATE SPECIALIST Right hip pain Pre-operative exam CBC WITH AUTO DIFFERENTIAL Routine 07/18/2024 11:42 AM CORPORATE REAL ESTATE SPECIALIST Right hip pain Pre-operative exam COMPREHENSIVE METABOLIC PANEL Routine 07/18/2024 11:42 AM CORPORATE REAL ESTATE SPECIALIST Right hip pain Pre-operative exam HEMOGLOBIN A1C Routine 07/18/2024 11:42 AM CORPORATE REAL ESTATE SPECIALIST Right hip pain Pre-operative exam XR CHEST PA LATERAL 2 VIEWS Schedule Routine, Read Routine (OP Routine) 07/11/2024 10:42 AM CORPORATE REAL ESTATE SPECIALIST Pre-operative exam ECG 12-LEAD Routine 07/11/2024 10:33 AM CORPORATE REAL ESTATE SPECIALIST Right hip pain Pre-operative exam PROTIME-INR Routine 07/11/2024 10:12 AM CORPORATE REAL ESTATE SPECIALIST Avascular necrosis of bone of right hip (HCC) APTT Routine 07/11/2024 10:12 AM CORPORATE REAL ESTATE SPECIALIST Avascular necrosis of bone of right hip [...] Result * Surgical pathology (07/20/2024 1:04 PM CORPORATE REAL ESTATE SPECIALIST) Tissue specimen (specimen) (Bone Fragment(s),) 07/20/2024 9:12 AM CORPORATE REAL ESTATE SPECIALIST Narrative PATHOLOGY [facility] - 07/22/2024 6:14 PM CORPORATE REAL ESTATE SPECIALIST EPIC results best viewed via link to PDF [facility] Department of Pathology [address] [place] [address] Note to Patients: This report may contain [...] Final Report Patient Name: LIZBET CAMP Address: [address] [place] [address] , [place] [address] Gender: F : 1975 (Age: 48) Service: Surgery Location: [facility] Hospital #: [id number] Patient Type: [facility] Taken: 07/20/2024 Received: 07/20/2024 Accessioned: 07/20/2024 [...] Avascular necrosis of bone of right hip ([facility]) [M87.051] Right total hip arthroplasty Gross Description: [...] is bisected revealing no subchondral gross lesions. News Broadcaster sections are submitted in one cassette after decalcification. Inocencia Potts R.N., P.A./Germania Almodovar M.D. REPORT IMAGES AND SCANNED DOCUMENTS, IF INCLUDED, ONLY VIEWABLE IN PDF VERSION OF REPORT The performance characteristics of some immunohistochemical stains, fluorescence in-situ hybridization tests and immunophenotyping by flow cytometry cited in this report (if any) were determined by the Surgical Pathology Department at [facility] as part of an ongoing senior quality analyst program and in compliance with federally [...] characteristics determined by the Surgical Pathology Department [facility]. It has not been cleared or approved by the U. S. Food and Drug Administration. Note for decalcified specimens: This assay has not been validated on decalcified tissues. Results should be interpreted with caution given the possibility of false negativity on decalcified specimens Julian Huang MD LAB PATHOLOGY ORDERABLES Final Result PATHOLOGY [facility] ([place]) [address] [place] [address] * XR Pelvis Ortho View (07/20/2024 10:36 AM CORPORATE REAL ESTATE SPECIALIST) Anatomical Region Laterality Modality Body, Pelvis N/A Computed Radiogr aphy 07/20/2024 11:2 8 AM CORPORATE REAL ESTATE SPECIALIST Narrative 07/20/2024 11:29 AM CORPORATE REAL ESTATE SPECIALIST EXAM DESCRIPTION: XR PELVIS ORTHO VIEW REASON [...] Haim Cardona D.O. AP: AP Report ID: [id number] Reading Location: [id number] Procedure Note Haim Cardona, DO - 07/20/2024 [...] Haim Cardona D.O. AP: AP Report ID: [id number] Reading Location: [place] [address] Julian Huang MD IMG XR PROCEDURES Final Result * FL Fluoroscopy < 1 Hour (07/20/2024 10:00 AM CORPORATE REAL ESTATE SPECIALIST) Narrative [facility] - 07/20/2024 10:01 AM CORPORATE REAL ESTATE SPECIALIST The images from this study are not interpreted by Radiology. Please refer to the physician's procedure / OR operative note. Julian Huang MD G FLUOROSCOPY PROCEDUR ES Final Result [facility] * XR Hip Right 1 View (07/20/2024 10:00 AM CORPORATE REAL ESTATE SPECIALIST) Anatomical Region Laterality Modality Lower Extremities, Hip, Pelvis Right R adio Fluoroscopy 07/23/2024 3:32 PM CORPORATE REAL ESTATE SPECIALIST Narrative 07/23/2024 3:33 PM CORPORATE REAL ESTATE SPECIALIST EXAM DESCRIPTION: XR HIP RIGHT 1 VIEW REASON FOR STUDY: pain Fluoro 13.2 mGy 1.32 FINDINGS: Multiple fluoroscopic images consisting of a single view(s) submitted with comparison 04/28/2024 . Dose area product equals 0.34756 mGym*2. Fluoroscopic images demonstrate an in progress right total hip arthroplasty placement . Soft tissue gas is present. IMPRESSION: In progress right total hip arthroplasty placement. THIS IS AN ELECTRONICALLY VERIFIED FINAL REPORT 07/23/2024 3:33 PM - Electronically signed by Richard Mejía M.D. MF: CODY Report ID: [id number] Reading Location: [id number] Procedure Note Richard Mejía MD - 07/23/2024 EXAM DESCRIPTION: XR HIP RIGHT 1 VIEW REASON FOR STUDY: pain Fluoro 13.2 mGy 1.32 FINDINGS: Multiple fluoroscopic images consisting of a single view(s) submittedwith comparison 04/28/2024 . Dose area product equals 0.30610 mGym*2. Fluoroscopic images demonstrate an in progress right total hiparthroplasty placement . Soft tissue gas is present. IMPRESSION: In progress right total hip arthroplasty placement. THIS IS AN ELECTRONICALLY VERIFIED FINAL REPORT 07/23/2024 3:33 PM - Electronically signed by Richard Mejía M.D. MF: CODY Report ID: [id number] Reading Location: [place] [address] Julian Huang MD IMG XR PROCEDURES Final Result * Spinal Block (07/20/2024 8:42 AM CORPORATE REAL ESTATE SPECIALIST) Narrative Kermit Khan CRNA - 07/20/2024 8:42 AM CORPORATE REAL ESTATE SPECIALIST Kermit Khan CRNA 07/20/2024 8:43 AM Spinal Block Patient location: OR End time: 07/20/2024 8:35 AM Reason for block: primary anesthetic Staff: Supervising provider: Juana Hoang MD Placed by: CONTAINER CRANE OPERATOR:Kermit Khan CRNA Procedure prep: Preprocedure checklist: patient [...] nal Result * aPTT (07/20/2024 7:26 AM CORPORATE REAL ESTATE SPECIALIST) aPTT 35 28 - 38 sec [facility] ([place]) Comment: Interpretive Data Heparin therapeutic range: 66.0 - 100.0 seconds. Range based on correlation with therapeutic heparin activity range of 0.3 - 0.7 Units/mL. Current interpretive data was last revised on 2023. Blood 07/20/2024 7:26 AM CORPORATE REAL ESTATE SPECIALIST 07/20/2024 7:27 AM CORPORATE REAL ESTATE SPECIALIST Julian Huang MD LAB BLOOD ORDERABLES Fin al Result Performing Organization Address [facility] de Phone Number [facility] [address] [facility] [place] [address] * Protime-INR (07/20/2024 7:26 AM CORPORATE REAL ESTATE SPECIALIST) PT 10.4 9.7 - 13.0 sec [facility] ([place]) INR 0.96 0.90 - 1.20 [facility] Comment: Interpretive data Oral anticoagulant therapeutic ranges: Venous thromboembolism prophylaxis or treatment: 2.0-3.0 CARDIOLOGY Standard range: 2.0-3.0 High-intensity range: 2.5-3.5 Refer to indication-specific guidelines for appropriate target ranges for prosthetic heart valve replacement. Current interpretive data was last revised on 2019. Blood 07/20/2024 7:26 AM CORPORATE REAL ESTATE SPECIALIST 07/20/2024 7:27 AM CORPORATE REAL ESTATE SPECIALIST Julian Huang MD LAB BLOOD ORDERABLES Fin al Result Performing Organization Address [facility]/ZIP Co de Phone Number [facility] [address] [facility] [place] [address] * POCT hCG, urine (07/20/2024 7:16 AM CORPORATE REAL ESTATE SPECIALIST) HCG, ur, POC Negative Negative Lot Number [id number] QC Backgroud Clear Acceptable QC Control Line Acceptable Urine 07/20/2024 7:16 AM CORPORATE REAL ESTATE SPECIALIST Maylin Cedeno Jr., MD POINT OF CARE ST ORDERABLES Final Result * Urinalysis reflex to microscopic and culture Urine (07/18/2024 11:45 AM CORPORATE REAL ESTATE SPECIALIST) Color, ur Yellow Yellow Clarity, ur Clear [...] tendency for uric acid stone formation. Source: [facility] [employer] Current Interpretive Data was last revised on [...] [facility] Urine 07/18/2024 11:4 5 AM CORPORATE REAL ESTATE SPECIALIST 07/18/2024 11:52 AM CORPORATE REAL ESTATE SPECIALIST Melania CADE LAB MICROBIOLOGY - NERAL ORDERABLES Final Result [facility] [address] [facility] Department [place] [address] * eGFR (07/18/2024 11:42 AM CORPORATE REAL ESTATE SPECIALIST) Pathologist [facility] eGFR >90 >=60 mL/min/1. 73 m2 Comment: [...] reviewed 2021. Blood 07/18/2024 11:4 2 AM CORPORATE REAL ESTATE SPECIALIST 07/18/2024 11:51 AM CORPORATE REAL ESTATE SPECIALIST Melania CAED LAB BLOOD ORDERABLES Final Result [facility] [address] [facility] Department [place] [address] * Differential, auto (07/18/2024 11:42 AM CORPORATE REAL ESTATE SPECIALIST) Pathologist [facility] Neutrophil abs 5.5 1.5 - 6.5 K/cumm Imm gran abs 0.0 0.0 - 0.1 K/cumm [facility] Lymphocyte abs 2.1 0.8 - 3.3 K/cumm [...] on 2017. Blood 07/18/2024 11:4 2 AM CORPORATE REAL ESTATE SPECIALIST 07/18/2024 11:51 AM CORPORATE REAL ESTATE SPECIALIST us Melania CADE LAB BLOOD ORDERABLES Final Result [facility] [address] [facility] Department [place] [address] * (ABNORMAL) CBC with auto differential (07/18/2024 11:42 AM CORPORATE REAL ESTATE SPECIALIST) WBC 8.4 3.8 - 9.9 K/cumm Hgb 14.0 11.9 - 15.5 g/dL [facility] ([place]) Hct 44.3 35.6 - 45.5 % [facility] ([place]) Plt 359 150 - 400 K/cumm [facility] ([place]) MPV 9.5 9.1 - 12.3 fL [facility] ([place]) RBC 4.64 3.90 - 5.20 M/cumm [facility] ([place]) MCV 95.5 81.3 - 96.4 fL [facility] ([place]) MCH 30.2 27.1 - 33.3 pg [facility] ([place]) MCHC 31.6(L) 32.3 - 35.7 g/dL [facility] ([place]) RDW CV 13.2 11.1 - 14.9 % [facility] RDW SD 46.8 35.7 - 48.1 fL [facility]) NRBC abs 0.00 0.00 - 0.01 K/cumm [facility] ([place]) Blood 07/18/2024 11:4 2 AM CORPORATE REAL ESTATE SPECIALIST 07/18/2024 11:51 AM CORPORATE REAL ESTATE SPECIALIST Melania CADE LAB BLOOD ORDERABLES Final Result [facility] [address] [facility] Department [place] [address] * Hemoglobin A1c (07/18/2024 11:42 AM CORPORATE REAL ESTATE SPECIALIST) Hgb A1C 5.1 4.0 - 5.6 % Estimated Average Glucose 100 mg/dL [facility] ([place]) Comment: The ADA recommends reporting an estimated Average Glucose (eAG) with all Hemoglobin A1c results using the equation derived from a study of 507 normal and diabetic adults. Minority populations were underrepresented and children were not included. (Diabetes Care 31:3330-9438, 2008). The eAG is not equivalent to a fasting glucose. Blood 07/18/2024 11:4 2 AM CORPORATE REAL ESTATE SPECIALIST 07/18/2024 11:51 AM CORPORATE REAL ESTATE SPECIALIST us Melania CADE LAB BLOOD ORDERABLES Final Result [facility] ([place] [address] [facility] Department [place] [address] * Comprehensive metabolic panel (07/18/2024 11:42 AM CORPORATE REAL ESTATE SPECIALIST) Sodium 142 135 - 145 mmol/L Potassium, [...] [facility] Blood 07/18/2024 11:4 2 AM CORPORATE REAL ESTATE SPECIALIST 07/18/2024 11:51 AM CORPORATE REAL ESTATE SPECIALIST us Melania CADE LAB BLOOD ORDERABLES Final Result [facility] [place]) [address] [facility] Department [place] [address] * XR Chest Pa Lateral 2 Views (07/11/2024 10:42 AM CORPORATE REAL ESTATE SPECIALIST) Anatomical Region Laterality Modality Body, Chest N/A Computed Radiogr aphy 07/15/2024 3:52 PM CORPORATE REAL ESTATE SPECIALIST Narrative 07/15/2024 3:54 PM CORPORATE REAL ESTATE SPECIALIST EXAM DESCRIPTION: XR CHEST PA LATERAL 2 [...] Arthur Goodrich M.D. SARA: SARA Report ID: [id number] Reading Location: [id number] Procedure Note Arthur Goodrich MD - 07/15/2024 [...] Arthur Goodrich M.D. SARA: SARA Report ID: [id number] Reading Location: [id number] Melania CADE IMG XR PROCEDURES Fin al Result * ECG 12 lead (07/11/2024 10:33 AM CORPORATE REAL ESTATE SPECIALIST) 07/11/2024 10:3 5 AM CORPORATE REAL ESTATE SPECIALIST Narrative [facility] - 07/11/2024 12:36 PM CORPORATE REAL ESTATE SPECIALIST Vent Rate: 60 bpm RR Interval: 990 msec TN Interval: 131 msec QRS Duration: 89 msec QT Interval: 411 msec QTC Interval: 412 msec P-R-T [place]: 37 - 58 - 53 degrees IMPRESSION: SINUS RHYTHM NORMAL ECG Electronically Signed By: Alessandro Matthew MD Melania CADE ECG ORDERABLES Final Result Performing Organization Address [facility] Co de Phone Number [facility] * aPTT (07/11/2024 10:12 AM CORPORATE REAL ESTATE SPECIALIST) aPTT 32 28 - 38 sec [facility] Comment: Interpretive Data Heparin therapeutic range: 66.0 - 100.0 seconds. Range based on correlation with therapeutic heparin activity range of 0.3 - 0.7 Units/mL. Current interpretive data was last revised on 2023. Blood 07/11/2024 10:1 2 AM CORPORATE REAL ESTATE SPECIALIST 07/11/2024 10:56 AM CORPORATE REAL ESTATE SPECIALIST Julian Huang MD LAB BLOOD ORDERABLES Fin al Result [facility] Department [place] [address] * Protime-INR (07/11/2024 10:12 AM CORPORATE REAL ESTATE SPECIALIST) PT 10.3 9.7 - 13.0 sec [facility] INR 0.95 0.90 - 1.20 [facility] Comment: Interpretive data Oral anticoagulant therapeutic ranges: Venous thromboembolism prophylaxis or treatment: 2.0-3.0 CARDIOLOGY Standard range: 2.0-3.0 High-intensity range: 2.5-3.5 Refer to indication-specific guidelines for appropriate target ranges for prosthetic heart valve replacement. Current interpretive data was last revised on 2019. Blood 07/11/2024 10:1 2 AM CORPORATE REAL ESTATE SPECIALIST 07/11/2024 10:56 AM CORPORATE REAL ESTATE SPECIALIST us Julian Huang MD LAB BLOOD ORDERABLES Fin al Result [facility] [address] [facility] Department [place] [address] from Last 3 Months Insurance [facility] Advance Directives For more information, please contact: [phone] * Full Code (Latest Code Status on File) Date Activated Date Inactivated Comments 07/20/2024 11:17 AM 07/20/2024 8:25 PM Care Teams Senior Applications Analyst Relationship Specialty Start Date End Date Semaj Ricardo MD [address] [place] [address] PCP - General 10/18/18 Julian Huang MD [address] [place] [address] [address] [facility], [place] [address] Surgeon Orthopedic Surgery 07/20/24
--- NOTE | 2024-10-04 13:00 | PC.NURSE ---
patient unable to provide urine sample at this time.
--- NOTE | 2024-10-04 13:20 | ED_ITS ---
HPI - Female Genitourinary General Chief complaint: Vaginal Bleeding Stated complaint: vaginal bleeding/wounds after SA Time Seen by Provider: 10/04/24 11:53 Source: patient Mode of arrival: ambulatory Limitations: no limitations History of Present Illness HPI Narrative: Patient presents with complaint of vaginal bleeding and a genital rash for approximately 2 weeks. Also complaining of low pelvic pain. She was seen recently and had endorsed these symptoms but feels they are getting worse. She notes she is passing bloody clots. Denies other vaginal discharge. Feels she has had a foul odor. No sexual contact since she was last seen a few days ago. Dysuria for the past 3-4 days. Patient had been prescribed antibiotic for a UTI when seen recently but she had only been able to pick this up this morning. No fevers, chills, or flank pain. Denies pruritus. She states the vaginal bleeding has been constant except I don't know why it seems to stop when I get to the ED. Regardless, not saturating pads; she is just concerned by the fact that it as been continuing. Related Data Home Medications ?Medication ?Instructions ?Recorded ?Confirmed ?Last Taken ?Type acetaminophen 500 mg tablet 1,000 mg PO Q6H PRN Pain 06/21/21 09/29/22 Unknown History albuterol sulfate 90 mcg/actuation 2 inh inhalation Q4-6M PRN Dyspnea 06/21/21 09/29/22 Unknown History aerosol inhaler fluoxetine 40 mg capsule 40 mg PO QAM 06/21/21 09/29/22 Unknown History levothyroxine 175 mcg tablet 175 mcg PO DAILY 07/31/22 09/29/22 Unknown History mirtazapine 7.5 mg tablet 7.5 mg PO PRN PRN Insomnia 07/31/22 09/29/22 Unknown History Allergies Allergy/AdvReac Type Severity Reaction Status Date / Time No Known Allergies Allergy Verified 09/29/22 14:36 [facility] Past Medical History Medical History History of substance use History of miscarriage Osteoarthritis of right hip Hypothyroid Depression Surgical History Surgical History No history of previous surgery Family History Family History Other Unknown family medical history Social History Social History (Updated 10/04/24 @ 23:18 by Luz Marina Yao MD) Social History: Housing insecure She does wish to be a full code, and she previously stated that she drinks 2oz of liquor per day. Smoking packs per day: 1 Smoking cigarettes per day: 20.0 Years smoked: 7 Smoking pack-years: 7.00 Smoking status: Current some day smoker Tobacco type: cigarettes and e-cigarettes/vaping Smoking end date: 05/18/19 Additional smoking assessment comments: currently vapes Alcohol intake: current Drinks per week: 1 Substance use: current Substance use type: heroin, amphetamines, opiates, painkillers, IV drugs and methamphetamine Concerned About Future Housing: YES Living arrangements: alone Occupation/Education: occupation Gender identity (if verbalized by the patient): Female Sexual Orientation (if Verbalized by the Patient): Straight or Heterosexual Spiritual care concerns: No Agree to blood products: Yes Exam Narrative: GENERAL: Well-appearing, well-nourished, and in no acute distress. HEAD: Normocephalic, atraumatic. EYES: Non injected, non icteric ENT: Nares clear, no rhinorrhea or epistaxis. NECK: Supple. CHEST: Speaking in full sentences. No respiratory distress. HEART: Regular rate and rhythm. . ABDOMEN: Soft, nondistended. Non tender to palpation, without rigidity or guarding. Not peritoneal. : Pelvic exam performed with tech as beauty advisor/assistant food service director. External genitalia normal though there is some erythema and mild excoriation but without abscess or significant tenderness/ulceration. Labial majora and labia minora also with some hyperemia but again without evidence infection or abscess. Patient appears to have vaginal prolapse with tissue just at introitus but not protruding externally. It does have scattered whitish appearance. Notably, no blood in the vaginal vault. No adnexal or cervical motion tenderness on bimanual. EXTREMITIES: Normal range of motion. No lower extremity edema. SKIN: Warm, dry, no rash. NEURO: No focal deficits. Alert and oriented x3. PSYCH: Normal mood and affect. Course Vital Signs Vital signs: Vital Signs Temperature 97.6 F 10/04/24 10:31 Pulse Rate 100 10/04/24 10:31 Respiratory Rate 16 10/04/24 10:31 Blood Pressure 172/105 H 10/04/24 10:31 Pulse Oximetry 99 10/04/24 10:31 Oxygen Delivery Room Air 10/04/24 10:31 Temperature 97.9 F 10/04/24 14:09 Pulse Rate 86 10/04/24 14:09 Respiratory Rate 16 10/04/24 14:09 Blood Pressure 164/89 H 10/04/24 14:09 Pulse Oximetry 98 10/04/24 14:09 Oxygen Delivery Room Air 10/04/24 10:31 MDM - Female Genitourinary MDM Narrative Medical decision making narrative: Patient presents with report of suprapubic pain and abnormal uterine bleeding. Also concerned about genital rash/irritation and foul odor. In the emergency department she is afebrile vital signs notable for hypertension. Bedside test negative. Patient had a urine culture from the urine collected 10/01/2024 which grew group B Streptococcus. I discussed this with the Infectious Disease pharmacist [place] to confirm that the cephalexin that she had been prescribed which she picked up today but has not yet taken will be an acceptable on appropriate antibiotic therapy. He confirms this. Patient tells the nurse that she needs to go in order to go to work. Has to leave before UA results. Reasonable to forego further work up at this time given already underwent fairly comprehensive work up a few days ago. Discharged in stable condition. Advised to follow up with PCP/OBGyn and provided referral info rmation for the latter as I do believe she would benefit from this evaluation and to undergo recommended screening exams. Have now discussed with patient twice the difference between a pelvic exam done in the ed and the utility of a PAP smear. Patient given a dose of Pyridium in the ED and prescribed course as well. Discussed side effects. -- Strangely, UA results without marked abnormalities. Differential Diagnosis Differential diagnosis: Likely urinary tract infection ( pyelo), trichomoniasis, cervicitis, ovarian cyst, vaginitis, cyst of Bartholin's gland, cystitis, dysmenorrhea and other (PID, cervical cancer, herpes; considered STIs (tested for GC/Chlamydia, trich, syphilis, and HIV at recent presentation - negative); TOA; considered other abnormal uterine bleeding etiologies such as thyroid dysfuction (assessed recently), trauma, ) Lab Data Attestation: I reviewed the patient's lab results. Labs: Lab Results 10/04/24 10/04/24 Range/Units 13:44 13:45 Urine Color Yellow (Yellow) Urine Appearance Clear (Clear) Urine pH 5.5 (5.0-9.0) Ur Specific [place] 1.026 (1.001-1.035) Urine Protein Negative (Negative) mg/dL Urine Glucose (UA) Negative (Negative) mg/dL Urine Ketones Trace H (Negative) mg/dL Ur Blood (Man) 1+ H (Negative) Urine Nitrate Negative (Negative) Urine Bilirubin Negative (Negative) Urine Urobilinogen 1.0 (<2.0) mg/dL Add Ur Microanalysis Reviewed Leukocyte Esterase Rfl 1+ H (Negative) JHOAN/UL Urine RBC 3-5 H (0-2) /hpf Urine WBC 0-5 (0-3) /hpf Ur Squamous Epith Cells Occasional (Few) /hpf Urine Bacteria None seen /hpf Urine Casts 0-2 POC Urine HCG, Qual Negative (Negative) Discharge Plan Discharge Clinical Impression: Dysuria, Abnormal uterine bleeding UTI (urinary tract infection) Qualifiers: Urinary tract infection type: acute cystitis Patient Disposition: Home Condition: Stable Instructions: Antibiotic Form, Abnormal (Dysfunctional) Uterine Bleeding (ED), Urinary Tract Infection in Women (DC), Dysuria (ED) Additional Instructions: As we discussed, a pelvic exam was performed today but this is different a Pap smear. It is important that you undergo routine cervical cancer screening with a Pap smear. Some primary care physicians perform this so check. If not, an ObGyn is listed below. The infectious disease pharmacist confirmed that the cephalexin you were prescribed earlier is appropriate therapy for the type of bacteria (Group B Streptoccocus) your particular UTI is being caused by. Take the entire course. Pyridium/phenazopyridine can help with the pain you are experiencing from a urinary tract infection. It can discolor your urine and tears (turn them orange). Do not wear contact lenses while taking this medication. Return to the emergency department with any new, worsening, or unmanaged symptoms. In particular, a few feet/pass out, are becoming short of breath, and or are saturating 2 maxi pads an hour for 2-3 hours. Patient Language: Kazakh Prescriptions: New phenazopyridine 100 mg tablet 100 mg PO TID PRN (Reason: pain) 2 Days Qty: 6 0RF Rx Instructions: after meals No Action tramadol 50 mg tablet 50 mg PO Q6H PRN (Reason: pain) Qty: 30 0RF levothyroxine 175 mcg tablet 175 mcg PO DAILY mirtazapine 7.5 mg tablet 7.5 mg PO PRN PRN (Reason: Insomnia) fluoxetine 40 mg Capsule 40 mg PO QAM acetaminophen 500 mg Tablet 1,000 mg PO Q6H PRN (Reason: Pain) albuterol sulfate 90 mcg/actuation HFA aerosol inhaler 2 inh INHALATION Q4-6M PRN (Reason: Dyspnea) lisinopril 10 mg Tablet 10 mg PO DAILY 30 Days Qty: 30 0RF cephalexin 500 mg capsule 500 mg PO Q6H 5 Days Qty: 20 0RF chlorhexidine gluconate [Hibiclens] 4 % liquid 1 applic topical ONCE Qty: 237 0RF Rx Instructions: Cleanse operative extremity, in shower, every day for 3 days prior to surgical procedure. Follow-up/Referrals: Elli Castano MD [Physician] - Semaj Ricardo MD [Primary Care Provider] - Time of Disposition: 13:52
[2024-10-04 13:47] LABS: BEDSIDEPREGUCG Negative (Negative)
[2024-10-04] MEDS: PHENAZOPYRIDINE HCL 100 MG TABLET PO (13:53)
[2024-10-04 14:06] LABS: Add Urine Microscopic? YES; Appearance Urine Clear (Clear); Bacteria Urine None Seen /hpf; Bilirubin Urine Negative (Negative); Blood Urine 1+ (Negative); Color Urine Yellow (Yellow); Glucose Urine UA Negative (Negative); Ketones Urine Trace mg/dL (Negative); Leukocyte Esterase Ur 1+ LEU/UL (Negative); Need Manual Microscopic Reviewed; Nitrate Urine Negative (Negative); Non Pathogenic Casts 0-2; Protein Urine Negative (Negative); Specific Grav Ur 1.026 (1.001-1.035); Squamous Epithelial Cell Urine Occasional /hpf (Few); WBC Urine 0-5 /hpf (0-3); pH Urine 5.5 (5.0-9.0)
[2024-10-04 14:09] VITALS: BP 164/89; PULSE 86; RESP 16; TEMP 36.6; O2SAT 98
== END 2024-10-04 14:11 | disposition home or self-care (01) ==
PROVIDERS: Emergency Provider Student in an Organized Health Care Education/Training Program; PCP Family Medicine
DX: N30.00 Acute cystitis without hematuria (principal); N93.9 Abnormal uterine and vaginal bleeding, unspecified; E03.9 Hypothyroidism, unspecified; M16.11 Unilateral primary osteoarthritis, right hip; F32.A Depression, unspecified; F17.290 Nicotine dependence, other tobacco product, uncomplicated; Z79.899 Other long term (current) drug therapy
CPT/HCPCS: 81001; 81025; 87086; 99284; A9270